=== PATIENT | male | born 1950 | race Caucasian/White ===

== ENCOUNTER → 2021-02-10 09:35 | Outpatient (CLI) | payer MEDICARE, OTHER, SELFPAY ==
[2021-02-10 12:22] LABS: Erythrocyte Sedimentation Rate 23 mm/hr (0-20)
[2021-02-10 12:26] LABS: Absolute Lymphocyte Count 2.46 X10^3/uL (0.83-4.51); Absolute Neutrophil Count 8.8 X10^3/uL (2.0-7.7); Basophil# 0.04 X10^3/uL; Basophil% 0.3 % (0-1); Eosinophil# 0.13 X10^3/uL; Eosinophils% 1.1 % (0-5); Hematocrit 46.8 % (40-54); Hemoglobin 15.6 g/dL (13.0-16.5); Lymphocyte # 2.46 X10^3/ul (0.83-4.51); Lymphocyte % 19.9 % (19-41); Mean Corp Hgb Conc 33.3 g/dL (32-36); Mean Corpuscular Hgb 32.2 pg (27.0-32.0); Mean Corpuscular Volume 96.7 fL (80-94); Mean Platelet Vol. 10.7 fl (6.2-12.0); Monocyte# 0.83 X10^3/uL; Monocyte% 6.7 % (0-10); NRBC Flagged by Analyzer 0 % (0-5); Neutrophil # 8.84 X10^3/uL (2.7-7.7); Neutrophil % 71.6 % (47-70); Platelet Count 234 K/mm3 (150-450); RBC Distribution Width CV 12.8 % (11.6-14.6); RBC Distribution Width SD 45.8 fl (35.1-43.9); Red Blood Count 4.84 M/mm3 (4.6-6.2); White Blood Count 12.4 K/mm3 (4.4-11.0)
[2021-02-10 12:45] LABS: ALB/GLOB Ratio 0.8 RATIO (0.9-2.4); AST(SGOT) 10 U/L (15-37); Alanine Aminotransfer ALT/SGPT 23 U/L (16-61); Albumin, Serum 3.1 g/dL (3.2-5.0); Alkaline Phosphatase 96 U/L (45-117); Anion Gap 5 (5-15); BUN 12 mg/dL (7-18); BUN/Creat Ratio 11.7 RATIO (10-20); Calcium,Total 9.7 mg/dL (8.5-10.1); Chloride 100 mmol/L (98-107); Creatinine, Serum 1.03 mg/dL (0.70-1.30); EST Glomerular Filtration Rate 76 mL/min (>60); Est Glom Filt Rate - Afr Amer 92 mL/min (>60); Globulin 4.1 g/dL (2.2-4.2); Glucose 332 mg/dL (74-106); Potassium 4.3 mmol/L (3.5-5.1); Protein, Total 7.2 g/dL (6.4-8.2); Rheumatoid Factor < 10.0 IU/mL (<15); Sodium Level 134 mmol/L (136-145)
[2021-02-10 13:11] LABS: Hepatitis B Surface Antibody Non-Reactive; Hepatitis B Surface Antigen Non-Reactive (Nonreactive); Hepatitis C Antibody Non-Reactive (Nonreactive)
[2021-02-12 12:42] LABS: CCP IgG Antibodies 5 units (0-19)
== END ==
PROVIDERS: PCP Preventive Medicine Occupational Medicine; Referring Provider Internal Medicine Rheumatology; Visit Provider Internal Medicine Rheumatology
DX: M06.4 Inflammatory polyarthropathy (principal); M47.897 Other spondylosis, lumbosacral region; E11.9 Type 2 diabetes mellitus without complications
CPT/HCPCS: 36415; 80053; 85025; 85652; 86140; 86200; 86431; 86706; 86803; 87340

== ENCOUNTER 2024-07-08 16:49 | Emergency (ER) | payer MEDICARE, OTHER, SELFPAY ==
[2024-07-08 16:50] VITALS: BP 160/81; PULSE 60; RESP 18; TEMP 36.1; O2SAT 93
--- NOTE | 2024-07-08 17:00 | RAD_ITS ---
INDICATION: FALL EXAMINATION/TECHNIQUE: X-RAY - RIGHT XR Knee 2 VIEWS COMPARISON: FINDINGS: SOFT TISSUES: Prepatellar soft tissue injury with swelling. No radiopaque foreign body. Chondrocalcinosis of the menisci. Vascular calcifications. Suprapatellar effusion. BONES/JOINTS: No acute fracture or subluxation.. Degenerative spurring at the femorotibial and patellofemoral tibial compartments. Narrowing of the medial femoral tibial compartment. No sclerotic or destructive changes observed. RAD/Knee 1 or 2 Views IMPRESSION: Degenerative changes and effusion. Chondrocalcinosis of the menisci. Electronically Signed: Dinh Johnson DO at 17:20 EDT Reading Location ID and State: [facility] / [place] Tel [phone], Service support ,
[2024-07-08 20:50] VITALS: BP 133/63; RESP 18; O2SAT 98; BMI 34.9
--- NOTE | 2024-07-08 20:58 | CT_ITS ---
CT RIGHT LOWER EXTREMITY WITH 3-D IMAGING CLINICAL INDICATION: knee pain TECHNIQUE: Axial CT images of the RIGHT lower extremity was performed without IV contrast material. Coronal and sagittal reformats were provided. The protocol utilizes one or more of the following dose reduction techniques: automated exposure control, adjustment of mA and/or kV according to patient size,and/or use of iterative reconstruction technique. RADIATION DOSAGE (If Supplied By Facility): CTDIvol = ( 15.35 ) mGy, DLP = ( 557.16 ) mGycm COMPARISON: FINDINGS: Bones: Osseous structures are normal without evidence of fracture or dislocation. Degenerative spurring at the femoral tibial compartments. No lytic or blastic osseous masses. Soft Tissues: There is prepatellar soft tissue swelling and possible hemarthrosis. Injury to the cruciate ligaments cannot be excluded. Correlation with MRI if internal derangement is suspected. Chondrocalcinosis of the menisci. 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 CT/Extremity Lower without Contra IMPRESSION: Mild degenerative changes. There is prepatellar soft tissue swelling and possible hemarthrosis. Injury to the cruciate ligaments cannot be excluded. Correlation with MRI is recommended if clinically indicated. Chondrocalcinosis of the menisci. 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
[2024-07-08] MEDS: oxyCODONE 5 MG Tablet 10 MG PO (21:11)
--- NOTE | 2024-07-08 21:20 | EDS_ITS ---
HPI History of Present Illness Chief Complaint: Lower Extremity Injury Informant: patient and family Narrative Narrative: 73-year-old male presenting to the emergency room with right knee injury. Patient states that he got off his tractor began to fall forward. He states that his plant was set and he did have some twisting. He notes that there seems hyperextension as he fell. He notes pain in the suprapatellar lateral area of the knee. He notes swelling. He notes he is unable to lift his leg up off the bed. He states while sitting in the chair in triage his leg just dangled down. He denies any other injuries in the fall [facility] Medical History Arthritis Diabetes Factor 5 Leiden mutation, heterozygous High cholesterol HTN (hypertension) DVT (deep venous thrombosis) Home Medications ?Medication ?Instructions ?Recorded ?Last Taken ?Type oxycodone-acetaminophen 5 mg-325 1 tab PO Q6H PRN pain 3 days #12 07/08/24 Unknown Rx mg tablet (Percocet) tabs Allergy/AdvReac Type Severity Reaction Status Date / Time No Known Allergies Allergy Verified 07/08/24 16:52 Social History Smoking Status: Current every day smoker tobacco type: cigarettes ROS ROS ED Constitutional Constitutional ED: Denies chills, fever(s) or weight loss Eyes Eyes: Denies change in vision or diplopia ENT ENT ED: Denies ear pain, rhinorrhea or sore throat Cardiovascular Cardiovascular: Denies chest pain, orthopnea, palpitations or racing heartbeat Respiratory/Chest Respiratory/Chest: Denies cough, dyspnea or orthopnea Gastrointestinal Gastrointestinal: Denies abdominal pain, diarrhea, nausea or vomiting Genitourinary Genitourinary ED: Denies dysuria, hematuria or urinary frequency Musculoskeletal Musculoskeletal: Reports other Details: See history of present illness ; Denies arthralgias or myalgias Integumentary Denies abscess or rash Neurologic Neurologic: Denies headache(s) or weakness Psychiatric Psychiatric: Denies anxiety, depression, suicidal ideation or suicidal thoughts Endocrine Endocrinology: Denies polydipsia, polyphagia or polyuria Allergic/Immunologic Allergic/Immunologic ED: Denies mouth swelling, tongue swelling or urticaria EXAM Physical Exam Const Vital Signs: 07/08/24 16:50 07/08/24 20:50 Temperature 97 F L Temperature Source Temporal Pulse Rate 60 Respiratory Rate 18 18 Blood Pressure 160/81 H 133/63 H Blood Pressure Mean 107 86 Pulse Ox 93 98 Oxygen Delivery Method Room Air Positive well nourished, well developed and obese General Appearance ED: well developed and NAD Nutritional Appearance: obese HEENT Reports normocephalic, head/scalp atraumatic and moist mucous membranes Eyes PERRL and EOMs intact bilaterally Neck no lymphadenopathy, supple and no JVD Resp normal respiratory effort and clear to auscultation bilaterally Cardio regular rate, regular rhythm and no murmurs GI normal to inspection, nondistended, normoactive bowel sounds and non-tender Palpation: soft Back/Spine no CVA tenderness and normal ROM Extremity Extremity Narrative: There is significant swelling in the suprapatellar region of the right knee. The patient is unable to raise his leg up off the bed. He has a difficult time jeremias his quadriceps. There is no posterior tenderness on palpation. No medial or lateral joint line tenderness General Extremety ED: Negative for edema General Extremity: Negative for edema Neuro oriented x3 and CN's II-XII intact bilaterally Sensorium / Orientation: alert Motor Exam: strength 5/5 throughout Psych mental status grossly normal Mood & Affect: Negative for depressed or tearful Skin no rashes or lesions noted and no wounds MDM MDM MDM Narrative Medical decision making narrative: Differential diagnosis includes fracture dislocation ligamentous injury tendon injury neurovascular injury. Patient appears neurovascular intact. He has a significant mount of swelling/effusion. He cannot fully contract his quadriceps. Difficult to say if this is due to pain or actual mobility loss. My independent interpretation of the plain films of the knee is no acute fracture. A CT scan was obtained which demonstrates hemarthrosis aneurysm of the popliteal artery prepatellar soft tissue swelling. Jose C wrap was applied patient was placed in a knee immobilizer and given crutches. Because of his risk factors for DVT we talked specifically about her right in the about this foot and mobility. I will write for pain medication. Advised orthopedic follow-up and they would like to see Dr. Mello for that. History & Record Review Discussion w/independent historian: Patient and Family Radiography Diagnostic Testing: Clinical Impression(s) from Imaging Studies Knee X-Ray 07/08/24 17:00 IMPRESSION: Degenerative changes and effusion. Chondrocalcinosis of the menisci. Electronically Signed: Dinh Johnson DO at 17:20 EDT , Lower Extremity CT 07/08/24 20:58 IMPRESSION: Mild degenerative changes. There is prepatellar soft tissue swelling and possible hemarthrosis. Injury to the cruciate ligaments cannot be excluded. Correlation with MRI is recommended if clinically indicated. Chondrocalcinosis of the menisci. 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 Electronically Signed: Dinh Johnson DO at 21:57 EDT , Discharge Plan Triage Chief Complaint: Lower Extremity Injury ED Provider: Marcus Veloz Dx/Rx/DC Orders Clinical Impression: Fall, Effusion of right knee, Knee sprain Instructions: ED Knee Sprain Ligaments Prescriptions: New oxycodone-acetaminophen [Percocet] 5-325 mg tablet 1 tab PO Q6H PRN (Reason: pain) 3 Days Qty: 12 0RF Primary Care Provider: Baljinder Chester Referrals: Baljinder Chester DO [Primary Care Provider] - Kei Mello MD [Med Staff - Active Staff] - As soon as possible Print Language: Azeri Disposition Disposition: Home, Self Care Discharge Date/Time: 07/08/24 23:25
== END 2024-07-08 23:25 | disposition home or self-care (01) ==
PROVIDERS: Emergency Provider Emergency Medicine; PCP Preventive Medicine Occupational Medicine; Visit Provider Emergency Medicine
DX: S83.91XA Sprain of unspecified site of right knee, initial encounter (principal); E11.9 Type 2 diabetes mellitus without complications; E78.00 Pure hypercholesterolemia, unspecified; M25.461 Effusion, right knee; I10 Essential (primary) hypertension; W17.89XA Other fall from one level to another, initial encounter; F17.210 Nicotine dependence, cigarettes, uncomplicated
CPT/HCPCS: 73560; 73700; 99283

== ENCOUNTER 2024-08-01 15:21 | Observation (INO) | payer MEDICARE, OTHER, SELFPAY ==
--- NOTE | 2024-07-22 06:32 | PCM.HP.BLA ---
History and Physical History and Physical Patient Name: Baljinder Davis : 1950 From:? DELFINO JC PA-C DATE OF PRE-OPERATIVE EXAM: 07/19/2024 DATE OF SURGERY:? 08/01/2024 SCHEDULED PROCEDURE:? Right knee quadriceps tendon repair HISTORY OF PRESENT ILLNESS: This is a 73-year-old male who underwent MRI of the right knee.? His daughter was present at visit.? Injury occurred on July 08, 2024 when patient was hooking up a trailer with he fell injuring his right knee.? Patient had immediate pain.? He was seen in our office after he went to the [facility] emergency room.? He was placed in a knee immobilizer.? Patient today presents without the knee immobilizer in a wheelchair.? He has been using oxycodone and Tylenol for pain control.? Patient ran out of the pain medication.? He also complains of ongoing low back pain.? He is unable to extend his right knee.? Patient has medical history pertinent for type 2 diabetes mellitus, hypertension, history of DVT and pulmonary embolism, sleep apnea, and factor V Leiden.? He is currently on Coumadin.? Patient denies any chest pain, shortness of breath, fevers chills or recent infections.? Patient is unsure of what his last A1c was.? They state he has an appointment next week with his primary care physician Dr. Pedro on July 24, 2024. REVIEW OF SYSTEMS: Review Of Systems: Constitutional: Denies change in appetite, fever and weight change. Cardiovasular: Denies chest pain, heart murmur and irregular heartbeat. Respiratory: Denies cough, pneumonia, shortness of breath, tuberculosis and wheezing. Gastrointestinal: Denies constipation, diarrhea, heartburn, nausea, rectal itching, bloody stools and vomiting. Musculoskeletal: Reports gait disturbance, pain, trouble walking and weakness, but denies leg swelling. Skin: Denies Raynaud's, history of shingles and tattoo. Neurological: Denies ambulatory dysfunction, dizziness, numbness/tingling and tremor. Psychiatric: Denies anxiety, insomnia and stress. Hematologic/Lymphatic: Denies anemia, bleeding/bruising tendency and past transfusion. Reviewed and updated. PAST MEDICAL HISTORY: Advance Care Plan: Other Directive, LIVING WILL Effective Date: 07/10/2024 Other Directive, POA Effective Date: 07/10/2024 Past Medical History: Medical Problems: Arthritis, Diabetes, High Blood Pressure, Hypercholesterolemia, History Of Blood Clots/ DVT, Sleep Apnea, Pulmonary Embolism, Factor V Leiden Accidents: Fall - (07/08/2024) RT KNEE Surgical Hx: Knee Replacement Lt - (2004) DR. HUMPHREYS Anesthesia Complications: None Assistive Devices: Cpap Reviewed, no changes. SOCIAL HISTORY: Social History: Marital: Single.Occupation: [employer].Work Status: Currently Working.Hand Dominance: Right-handed. Personal Habits:? Cigarette Use: Light tobacco smoker (10 or fewer cigarettes/day).Smokeless Tobacco: Never Used Smokeless Tobacco.E-Cigarette Use: Never used.Alcohol: Occasionally.Drug Use: Denies Use.Enjoy Exercising: Never Exercises. Reviewed, no changes. VITALS: BP: 144/80 T: 97.0 T: 36.1C Pain Level: 5 ALLERGIES: No Known Drug Allergy No Known Substance Allergies MEDICATIONS: Oxycodone HCL 5 mg 1-2 tablets by mouth every 6 hours as needed, Oxycodone HCL 5 mg 1-2 tab by mouth every 6 hours, Fluticasone Propionate 50 mcg/Act, Glipizide 5 mg, Metoprolol Tartrate 25 mg, Aspir-Low 81 mg 1 by mouth twice a day, Warfarin Sodium 5 mg 1 by mouth every day, Tamsulosin HCL 0.4 mg 1 by mouth every day, Metformin HCL 500 mg 1po qday, Pravastatin Sodium 40 mg 1 by mouth every day, Prednisone 5 mg daily, Hydroxychloroquine Sulfate 200 mg 1 by mouth twice a day, Tramadol HCL 50 mg 1-2 by mouth every 6 hours as needed pain, Baclofen 10 mg three times a day as needed for muscle spasm PRE-OP EXAM: General appearance:NORMAL? Other: Eyes: Conjunctivae and lids: NORMAL? Pupils: ERR Ears, Nose, Mouth, and Throat: NORMAL? Other: Inspection of lips, teeth and gums: NORMAL?? Other: Neck: Examination of neck: no masses noted. Respiratory: Assessment of respiratory effort: NORMAL?? Other: ? Auscultation of lungs: clear to auscultation no wheezes, rhonchi or rales. Cardiovascular:? Auscultation of heart: regular rate and rhythm, no murmurs, gallops or rubs. PHYSICAL EXAMINATION: On exam this is a 73-year-old male who comes in today in a wheelchair.? He is without his knee immobilizer.? Patient has swelling to the right knee.? There are no wounds or abrasions.? Patient does have large effusion.? He has tenderness to palpation over the quadriceps tendon near its insertion.? Difficulty determining if there is a palpable defect but he has significant pain over this area.? Patient was unable to actively perform knee extension. ROM: Patient was unable to actively perform terminal knee extension.? Passively I was able to get him to 0 extension however he was unable to hold this in position.? He had flexion of 100 with increased pain. Special tests: Stable to anterior/posterior drawer exam.? Stable to varus/valgus stress test. Sensation intact to light touch to bilateral lower extremities.? Negative Homans exam bilaterally. IMAGING STUDIES: Previous x-rays from [facility] were reviewed from July 08, 2024.? These were nonweightbearing x-rays which did reveal reveal joint space narrowing with subchondral sclerosis, osteophyte formation consistent with moderate stage III medial compartment osteoarthritis.? There is chondrocalcinosis appreciated in both the medial and lateral compartment.? Patient has joint effusion. 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 There is chondrocalcinosis of the menisci. MRI of the right knee was obtained at [facility] on July 16, 2024 did reveal a full-thickness quadriceps tendon tear at the patella insertion.? There is large amount of swelling and hematoma.? There is complex medial meniscus tear with intermediate chondromalacia in the medial compartment.? There is also popliteal artery aneurysm measuring approximate 4.7 cm in length and 1.9 cm in diameter.? Complex Gallo cyst.? For complete details the MRI results.? I did discuss to review MRI with Dr. Blake Cooper. IMPRESSION: 1.? Right knee quadriceps tendon tear 2.? Right knee large effusion 3.? 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 Right knee degenerative complex medial meniscus tear 5.? Right knee popliteal artery aneurysm 6.? Hypertension 7.? Type 2 diabetes mellitus 8.? History of DVT and pulmonary embolism: Currently on Coumadin 9.? Hypercholesterolemia 10.? Sleep apnea PLAN: Dr. Blake Cooper did discuss and review with the patient all treatment options including surgical versus nonsurgical options.? Patient does wish to proceed with the above-stated procedure.? Potential risks, benefits, and complications of the procedure were discussed in detail including but not limited to , infection, nerve and blood vessel damage, persistent pain, numbness, tingling, paresthesias, blood clot, pulmonary embolism, and requirement for possible further surgery.? The patient expressed full understanding and has no further questions for the doctor.? Patient does agree to proceed with the above-stated procedure and has signed the surgery consent form. POST-OP MEDICATION PLAN: Pain Medications: Patient was given prescription for oxycodone.? He was advised to use extra strength Tylenol 500 mg 2 tablets 3 times daily.? He is unable to use nonsteroidal anti-inflammatories due to Coumadin treatment. DVT Prophylaxis: Patient will resume his Coumadin postoperatively as prescribed.? Appreciate recommendations from primary care provider Dr. Pedro for perioperative management of the Coumadin.? I did advise the patient he will most likely have to stop the Coumadin one week prior to the procedure. This dictation was created using voice recognition software. Phonetic and/or grammatical errors may exist. ___? I have re-examined the patient.? There are no clinical changes since date of exam. ___? See progress notes for changes. ___? Dictated on admission Date: ? Time: Signature:
[2024-08-01] VITALS (14 sets, daily range): BP systolic 110–148; BP diastolic 66–92; PULSE 61–85; RESP 16–18; TEMP 36.3–37.1; O2SAT 93–98; BMI 33.7
[2024-08-01] MEDS: Cefazolin 2 GM in Syringe IV (11:50)
[2024-08-01 12:12] LABS: INR Fingerstick 1.1
--- NOTE | 2024-08-01 12:32 | PCM.PRE.AN2 ---
ASA Classification* ASA Classification ASA Classification: 2 (SEE WRITTEN PRE ANESTHESIA RECORD FOR FULL ASSESSMENT) Assessment & Plan Anesthesia* Anesthesia Assessment Anesthesia Assessment: Discussed sedation and/or anesthesia options, risks, benefits, and alternatives with patient/parents/legal guardian/POA. Questions invited. The patient/parents/legal guardian/POA seems to understand and agrees to proceed with anesthesia plan. Reviewed the physical assessment, medical history, allergy history and patient home medications list prior to surgery/procedure/anesthetic and documented any changes. Performed airway and anesthesia risk assessments. Anesthesia Type Anesthesia Type: General (SEE WRITTEN PRE ANESTHESIA RECORD FOR FULL ASSESSMENT) Anesthesia Focused Assessment* Airway Assessment Mouth opens: >3 cm Mallampati Score: II Focused Labs Anesthesia Preop lab: CBC WBC 12.4 K/mm3 (4.4-11.0) H 02/10/21 09:44 RBC 4.84 M/mm3 (4.6-6.2) 02/10/21 09:44 Hgb 15.6 g/dL (13.0-16.5) 02/10/21 09:44 Hct 46.8 % (40-54) 02/10/21 09:44 Plt Count 234 K/mm3 (150-450) 02/10/21 09:44 CHEMISTRY Potassium 4.3 mmol/L (3.5-5.1) 02/10/21 09:44 Sodium 134 mmol/L (136-145) L 02/10/21 09:44 BUN 12 mg/dL (7-18) 02/10/21 09:44 Creatinine 1.03 mg/dL (0.70-1.30) 02/10/21 09:44 Glucose 332 mg/dL (74-106) H 02/10/21 09:44 COAG Pre-Assessment Diagnosis/Proposed Procedure Planned Operative Procedure(s): RIGHT KNEE QUADRICEPS TENDON REPAIR Anesthesia History Anesthesia History - personal support worker: Anesthesia History - personal support worker Hx Hospitalization No 07/24/24 08:10 Any Problems With Anesthesia No 07/24/24 08:10 Cholinesterase deficiency No 07/24/24 08:10 You/Your Family Experience No 07/24/24 08:10 fever (hyperthermia) with Relationship Recent Exposure to Contagious Disease Does patient have nerve No 07/24/24 08:10 stimulator Patient instructed to have device shut off --Does patient have Pacemaker or ICD? When Was Last Pacemaker Check QUESTION #4 FULL TEXT: You/Your Family Experience fever (hyperthermia) with Anesthesia Last Oral Intake Last Oral intake: Last Oral Intake NPO since Meds taken in AM with sips of water? Meds patient instructed to take am of surgery PONV PONV - personal support worker: PONV - personal support worker Female No 07/24/24 08:10 HX of Motion Sickness No 07/24/24 08:10 HX of N/V After Surgery No 07/24/24 08:10 Non-Smoker No 07/24/24 08:10 Duration of Surgery greater Yes 07/24/24 08:10 than 60 minutes Number of Risk Factors 1 07/24/24 08:10 PONV Score Low Risk 07/24/24 08:10 Height & Weight Height & Weight: Anesthesia: Height & Weight Height 6 ft 2 in 07/08/24 16:50 Respiratory Assessment Respiratory Assessment - personal support worker: Respiratory Tract Infection Hx - personal support worker Hx Respiratory Tract Infection No 07/24/24 08:10 STOP Sleep Apnea STOP Sleep Apnea - personal support worker: STOP Sleep Apnea - personal support worker Hx Hypertension Yes: CONTROLLED WITH MED 07/24/24 08:10 Hx Sleep Apnea Yes 07/24/24 08:10 CPAP Yes 07/24/24 08:10 BIPAP No 07/24/24 08:10 Do you snore loudly (louder than talking or can be heard Do you often feel tired/ fatigued/ sleepy during daytime? Has anyone observed you stop breathing during sleep? STOP Results Positive 07/24/24 08:10 QUESTION #5 FULL TEXT : Do you snore loudly (louder than talking or can be heard through closed doors)? Tobacco Use History Tobacco Use History - personal support worker: Tobacco Use History - personal support worker Tobacco Use Smoking Status Current every day smoker 07/24/24 08:10 Hx Tobacco Use Yes 07/24/24 08:10 Years Smoking Packs Smoked per Day Smoking Cessation Date was within the last 15 years Hx Smoking Cessation Date Hx Smoking Cessation Counseling Hematologic Medial History Hematologic Hx - personal support worker: Hematologic Medical Hx - anchorer Hx of Blood Transfusion No 07/24/24 08:10 Hx of Transfusion in last 3 No 07/24/24 08:10 Months Date of Last Transfusion (if within last 3 months) Ever experience any problems No 07/24/24 08:10 with transfusion(s)? Specify any problems Hx of Preganancy in last 3 N/A 07/24/24 08:10 Months Nurse Filling Out Transfusion DSCHRIBER 07/24/24 08:10 & Questions: Date: 07/24/24 07/24/24 08:10 Time: 08:12 07/24/24 08:10 Patient unable to answer at this time (ie. confused, unrespo /Reproduction History /Reproductive History - personal support worker: /Reproductive Hx- personal support worker Hx Now No 07/24/24 08:10 Gestational Age (in weeks): EDC: Hx Hx Para Hx Section SAB No 07/24/24 08:10 Active Medications Active Medications: Current Medications Generic Name Dose Route Start Last Admin Trade Name Freq PRN Reason Stop Dose Admin Cefazolin Sodium 2 gm/ N/A 20 mls @ 400 mls/hr 08/01/24 15:30 IV 08/01/24 15:32 PREOP ONE PFSH Medical History Alcohol use History of steroid therapy Walker as ambulation aid Back pain Syncope Dietary restriction CPAP (continuous positive airway pressure) dependence Smoker Leg cramps Arthritis Diabetes Factor 5 Leiden mutation, heterozygous High cholesterol HTN (hypertension) DVT (deep venous thrombosis) Home Medications ?Medication ?Instructions ?Recorded ?Last Taken ?Type oxycodone-acetaminophen 5 mg-325 1 tab PO Q6H PRN pain 3 days #12 07/08/24 Unknown Rx mg tablet (Percocet) tabs fluticasone propionate 50 2 spray intranasal DAILY 07/24/24 Unknown History mcg/actuation nasal spray,suspension glipizide 5 mg tablet 5 mg PO BID 07/24/24 Unknown History hydroxychloroquine 200 mg tablet 200 mg PO BID 07/24/24 Unknown History metformin 500 mg tablet,extended 2,000 mg PO QHS 07/24/24 Unknown History release 24 hr metoprolol tartrate 25 mg tablet 25 mg PO BID 07/24/24 Unknown History pravastatin 40 mg tablet 40 mg PO QHS 07/24/24 Unknown History prednisone 5 mg tablet 5 mg PO DAILY 07/24/24 Unknown History tamsulosin 0.4 mg capsule 0.4 mg PO QHS 07/24/24 Unknown History tramadol 50 mg tablet 50 - 100 mg PO Q6H PRN PRN pain 07/24/24 Unknown History warfarin 5 mg tablet 5 mg PO DAILY 07/24/24 Unknown History Allergy/AdvReac Type Severity Reaction Status Date / Time No Known Allergies Allergy Verified 07/24/24 08:05 Surgical History Hx of colonoscopy Hx of appendectomy Hx of total knee arthroplasty Social History Smoking Status: Current every day smoker tobacco type: cigars Review of Systems (Anesthesia) ROS Narrative System reviewed and no additional complaints, except as documented.
[2024-08-01 13:20] LABS: Bedside Glucose 109 mg/dL (74-106)
[2024-08-01] MEDS: Bupivacaine Mpf 0.5% 30 ML VIAL (14:20)
[2024-08-01 15:09] LABS: AUTO B FLUID DILUENT BKGD CT WBC <0.1 RBC <0.01 (W<.1,R<.01); Appearance /Synovial Fluid Sl Cl (CLEAR); Color / Synovial Fluid Red (Pale Yellow); Source / Synovial Fluid RIGHT KNEE; Viscosity / Synovial Fluid Sl. Viscous (HIGH)
[2024-08-01 15:10] LABS: RBC /Synovial Fluid 0.037 10^6/uL (0); Synovial Fld Mononuclear WBC # 2.007 10^3/ul; Synovial Fld Mononuclear WBC % 3.1 %; Synovial Fld Polynuclear WBC # 62.649 10^3/uL; Synovial Fld Polynuclear WBC % 96.9 %
--- NOTE | 2024-08-01 15:37 | PCM.POST.ANE ---
Anesthesia: Postop Eval I Current Vital Signs Temperature: 98 F Pulse Rate: 69 Blood Pressure: 136/81 Respiratory Rate: 16 Pulse Ox: 94 Oxygen Delivery Method: Room Air Assessment Airway patent: Yes Spontaneous unlabored respirations: Yes Mental status: Awake and Calm nausea: No Vomiting: No Anesthesia Complication: No Fluid Hydration Crystalloid volume administer (ml): 1,000 Total IV fluid infused: 1,000 Progress Note Anesthesia document: Postop Eval 1 completed: Yes
--- NOTE | 2024-08-01 16:18 | PCM.OPRPT ---
Operative Report (Standard) Operative Information Surgery/Procedure Performed: 1. Right knee quadriceps tendon repair 2. Right knee irrigation and debridement Surgeon: Blake Cooper Date of Procedure: 08/01/24 Procedure Start Time: 14:16 Procedure Stop Time: 15:04 Pre-Operative Diagnosis: 1. Right knee quadriceps tendon rupture Post-Operative Diagnosis: 1. Right knee quadriceps tendon rupture 2. Right knee effusion with synovitis, concern for septic arthritis Select all DRAINS/GRAFTS/IMPLANTS that apply: None Type of Anesthesia: General Estimated Blood Loss: 50 cc Specimen collected: Yes Description of specimen(s) removed: Right knee fluid cultures and cell count Description of surgery: Preoperative diagnosis: Right knee quadriceps tendon rupture Postoperative diagnosis: 1. Right knee quadriceps tendon rupture 2. Right knee effusion with synovitis, concern for septic arthritis Procedure: 1. Right knee quadriceps tendon repair 2. 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 He sustained a right knee injury and felt a pop. X-rays were relatively unremarkable. Patient was able to perform a straight leg raise initially an MRI was obtained. MRI demonstrated a full-thickness retracted tear of the quadriceps tendon. Patient was on Coumadin and will obtain medical clearance prior to surgery. Coumadin was held. He has a history of factor V Leiden. I recommended open repair of the l right eft quadriceps tendon rupture after seeing the patient in consultation. The risks, benefits, alternatives to procedure were reviewed with the patient at length. He agreed to proceed with surgery. Risks included but were not limited to bleeding, infection, loss of life or limb, risk of anesthesia, need for additional surgery, persistent pain, nonhealing tendon, arthrofibrosis, extensor lag, neurovascular injury, DVT or PE. Informed sent was obtained prior to procedure. Description of procedure: Patient was identified in the preoperative holding area by name, medical record number, and date of . The operative extremity was marked. Informed consent was confirmed with the patient. All questions were answered to his satisfaction. At time of his procedure, patient was brought to the operative suite and positioned supine a standard operating table. All bony prominences were well-padded. General anesthesia was induced with a laryngeal mask airway placed. After adequate anesthesia and securing the tube, a well-padded pneumatic tourniquet was applied to left upper thigh. We then prepped and draped the right lower extremity in a normal, sterile orthopedic fashion after placing a bump under the patient's left hip and elevating the left lower extremity slightly on bath blankets. 3 g Ancef was administered prior to the incision by anesthesia staff. We then performed a timeout with all parties in attendance in agreement with the side, site, and operation be performed. No concerns were voiced and we elected to proceed. I first exsanguinated the left lower extremity and Esmarch bandage. Tourniquet was inflated 250 mmHg remained up for approximately 30 minutes. Esmarch was removed. I was able to palpate a defect in the quadriceps tendon. Incision was carried sharply through skin and subcutaneous tissue approximately 10 cm in length overlying the superior third of the patella and the quadriceps tendon. Bursa and fascia was split in line with the incision. Fluid was encountered. Fluid was Allowed a without obvious purulence. Synovitis was noted which did not appear to be to the degree I would expect for a septic arthritic knee. Chondral surfaces appeared pristine. At this time, I obtained fluid cultures and sent fluid for analysis. I thoroughly irrigated the knee and performed a limited synovectomy about the patellofemoral joint. I made the decision to proceed with the quadriceps tendon repair after irrigation. I then encountered the retinacular and quadriceps tendon injury. There is significant mop ends of the quadriceps tendon remaining both on the patella as well as the end of the remaining quadriceps tendon. These were debrided sharply. I then thoroughly irrigated the knee with normal saline solution. There was significant hematoma along the distal quadriceps musculature. This was also debrided. I then exposed the superior pole the patella. I freshened the bony surface with a rasp. Two #5 FiberWire's were placed in running, locking Krak?w fashion through the medial lateral margins of the quadriceps tendon. The 3.5 mm drill holes were placed parallel sequentially through the patella for transosseous repair. Sutures were shuttled with a suture passer. Sutures were then tied in approximately 30 degrees of flexion with excellent reapproximation of the quadriceps tendon to the superior pole. I was able to flex the knee to 30 degrees without undue tension or gap formation. I then noted 2 separate transverse retinacular injuries both medial and lateral to the quadriceps tendon. These were reapproximated with [id number] #1 PDS suture. I brought the knee into approximately 30 degrees of flexion and significant tension was noted on the repair. I then brought the knee back into full extension. Tourniquet was deflated. Hemostasis was excellent. I thoroughly irrigated the wound with normal saline solution. Dermis and subcutaneous tissue was reapproximated 2-0 Vicryl buried suture. Skin was finally reapproximated with ld. A silver dressing was applied. A bulky modified Dennis dressing was then also applied. Patient was then reversed from anesthesia and safely extubated in the operative suite. He was transferred to his hospital bed and subsequently to PACU in stable condition. Need for skilled insurance administrative assistant: Rupali Beasley PA-C was critical to the outcome of the case. During the course of the procedure the physician insurance administrative assistant played a vital role. Her intimate knowledge of my steps in the procedure aided in safe and expedient completion of the procedure. The PA played a vital role in positioning particularly in obtaining the appropriate positioning. The PA was also vital in the retraction of soft tissues during the exposure and protecting vital structures. The PA was also vital and obtaining tendon reduction and assisting with procedure placement. She also played a vital role in closure and brace application with my direct supervision. Post Operative Plan: Patient will be placed in observation for early convalescence and medical monitoring. We will follow cultures. Mobilize with physical and Occupational Therapy. Suspect patient would benefit from home therapy. Case management consulted. Weightbearing: Weightbearing as tolerated right lower extremity -hinged knee brace locked in extension at all times. To be removed only for hygiene purposes, at which time the knee should not be flexed. Antibiotics: Ancef 1 g x 3 doses postoperatively, 1 dose given preoperatively. Plan to follow cultures to determine possible treatment of septic arthritis. DVT Prophylaxis: SCDs, SELENA hose, early mobilization. Coumadin restarted on postoperative day #1. Hospitalist consulted for recommendations regarding factor V Leiden and need for bridge therapy. Serna: None Dressing: Maintain surgical silver dressing x7 days, then okay to remove X-Rays: None Follow-up: 3 weeks in my office Surgical Findings: See operative note details Architectural Modeler filler blender: Yes Assistant Front Office Manager: Rupali Beasley Tasks completed by nurse assistant: Opening & closing, Dissecting tissue, Removing tissue, Hemostasis: Electrocautery and Retracting Additional insurance administrative assistant?: No Complications Complications: No Admit VTE Documentation VTE Present on Admission: No VTE Mechan Device Prophylaxis: SCD's and Thigh High SELENA Hose VTE Pharm Prophylaxis ordered?: Yes
--- OUTSIDE RECORDS SUMMARY | 2024-08-01 16:19 | XMS RPT_ITS | CCD ---
Author Organization [facility] Care Team Providers Care Warper Fixer Name Role Phone HEAVENLY CHESTER DO Primary Care Physician HONORIO WILLIAM, DR HANDLEY Attending HEAVENLY Amato DO Primary Care Unavailable HONORIO WILLIAM, DR HANDLEY Attending HEAVENLY Amato DO Primary Care Unavailable HONORIO WILLIAM, DR HANDLEY Attending HEAVENLY Amato DO Primary Care Unavailable HEAVENLY CHESTER DO Primary Care Unavailable HEAVENLY CHESTER DO Attending Unavailable DELFINO JC PA-C Attending Unavailable HEAVENLY CHESTER DO Primary Care Unavailable Allergies Allergy Classification Reported Allergen(s) Allergy Type Date of Onset Reaction(s) Facility (19 sources) Contrast media; Translations: [iodinated radiocontrast agents] Drug allergy Vomiting (disorder) [facility] Work Phone: (19 sources) Fluorouracil; Translations: [fluorouracil] Drug Allergy [facility] Work Phone: Comment on above: 5-FLUOROURACIL--CHEM ICAL-RASH Medications Current Medications Medication Drug Class(es) Dates Sig (Normalized) Sig (Original) aspirin 325 mg oral tablet (19 sources) Platelet Aggregation Inhibitor, Nonsteroidal Anti-inflammatory Drug Start: 04-20-2020 aspirin 325 mg oral tablet Dose : 325 mg = 1 tab(s), Oral, Daily, 0 Refill(s) Start Date: 04/20/20 Status: Ordered baclofen 10 mg oral tablet (10 sources) gamma-Aminobutyric Acid-ergic Agonist Start: 04-03-2023 baclofen 10 mg oral tablet Dose : 10 mg = 1 tab(s), Oral, TID, # 90 tab(s), 1 Refill(s), Pharmacy: [facility]/pharmacy #[id number], Back spasm, 186.4, cm, 04/03/23 14:33:00 EDT, Height, kg, 04/03/23 14:33:00 EDT, Dosing Weight Start Date: 04/03/23 Status: Ordered Start: 04-23-2022 baclofen 10 mg oral tablet Dose : 10 mg = 1 tab(s), Oral, TID, # 90 tab(s), 1 Refill(s), [id number], Back spasm, 185.4, cm, 04/23/22 8:05:00 EDT, Height Start Date: 04/23/22 Status: Ordered Blood Glucose Test Machine (19 sources) Start: 03-30-2021 Blood Glucose Test Machine See Instructions, disp. 1 glucometer, UAD dialy to check blood sugar, # 1 EA, 0 Refill(s), Pharmacy: [facility]/pharmacy #[id number], Diabetes, 186, cm, 03/30/21 15:01:00 EDT, Height, 120.5, kg, 03/30/21 15:01:00 EDT, Dosing Weight Start Date: 03/30/21 Status: Ordered fluticasone propionate 0.05 mg/actuat metered dose nasal spray (14 sources) Corticosteroid Start: 04-10-2024 take 2 spray(s) nasal route once daily fluticasone 50 mcg/inh NASAL spray See Instructions, INSTILL 2 SPRAYS INTO NOSTRIL(S) DAILY, # 48 mL, 3 Refill(s), Pharmacy: [facility]/pharmacy #[id number], 185, cm, 04/10/24 16:03:00 EDT, Height, kg, 04/10/24 16:03:00 EDT, Dosing Weight Start Date: 04/10/24 Status: Ordered Start: 02-07-2023 take 2 spray(s) nasa l route once daily fluticasone 50 mcg/inh NASAL spray See Instructions, INSTILL 2 SPRAYS INTO NOSTRIL(S) DAILY, # 48 mL, 3 Refill(s), Pharmacy: [facility]/pharmacy #[id number], 185.5, cm, 12/22/22 14:31:00 EDT, Height, kg, 12/22/22 14:31:00 EDT, Dosing Weight Start Date: 02/07/23 Status: Ordered Start: 08-03-2020 take 2 spray(s) nasa l route once daily fluticasone 50 mcg/inh NASAL spray See Instructions, INSTILL 2 SPRAYS INTO NOSTRIL(S) DAILY, # 48 mL, 3 Refill(s), Pharmacy: [facility]/pharmacy #[id number], 186.5, cm, 08/03/20 14:37:00 EST, Height, kg, 08/03/20 14:37:00 EST, Dosing Weight Start Date: 08/03/20 Status: Ordered fluticasone 50 mcg/inh NASAL spray (5 sources) Start: 08-03-2020 take 2 spray(s) nasal route once daily fluticasone 50 mcg/inh NASAL spray See Instructions, INSTILL 2 SPRAYS INTO NOSTRIL(S) DAILY, # 48 mL, 3 Refill(s), Pharmacy: [facility]/pharmacy #[id number], 186.5, cm, 08/03/20 14:37:00 EST, Height, kg, 08/03/20 14:37:00 EST, Dosing Weight Start Date: 08/03/20 Status: Ordered glipiZIDE 5 mg oral tablet (14 sources) Sulfonylurea Start: 01-09-2024 End: 02-12-2025 glipiZIDE 5 mg oral tablet Dose : 5 mg = 1 tab(s), Oral, BID, # 200 tab(s), 3 Refill(s), Pharmacy: [facility]/pharmacy #[id number], Diabetes, 185.5, cm, 01/09/24 16:00:00 EDT, Height, kg, 01/09/24 16:00:00 EDT, Dosing Weight Start Date: 01/09/24 Stop Date: 02/12/25 Status: Ordered Start: 12-15-2022 glipiZIDE 5 mg oral tablet Dose : 5 mg = 1 tab(s), Oral, BID, # 180 tab(s), 3 Refill(s), Pharmacy: [facility]/pharmacy #[id number], Diabetes, 187, cm, 07/07/22 15:27:00 EDT, Height Start Date: 12/15/22 Status: Ordered Start: 07-07-2022 GlipiZIDE XL 1 0 mg oral tablet, extended release Dose : 10 mg = 1 tab(s), Oral, qDay, # 90 tab(s), 0 Refill(s), [id number], 187, cm, 07/07/22 15:27:00 EDT, Height, kg, 07/07/22 15:27:00 EDT, Dosing Weight Start Date: 07/07/22 Status: Ordered Start: 02-08-2022 GlipiZIDE XL 1 0 mg oral tablet, extended release Dose : 10 mg = 1 tab(s), Oral, qDay, # 90 tab(s), 0 Refill(s), [id number], 186.5, cm, 02/08/22 9:19:00 EDT, Height Start Date: 02/08/22 Status: Ordered Start: 12-28-2021 take 1-2 tablets by mouth once daily GlipiZIDE XL 5 mg oral tablet, extended release 1 to 2 tabs, Oral, qDay, # 60 tab(s), 1 Refill(s), [id number], Diabetes, 186, cm, 12/28/21 10:29:00 EDT, Height, kg, 12/28/21 10:29:00 EDT, Dosing Weight Start Date: 12/28/21 Status: Ordered hydroxychloroquine sulfate 200 mg oral tablet (2 sources) Antimalarial, Antirheumatic Agent Start: 01-09-2024 hydroxychloroquine 200 mg oral tablet Dose : 400 mg = 2 tab(s), Oral, qDay, # 180 tab(s), 0 Refill(s) Start Date: 01/09/24 Status: Ordered leflunomide 10 mg oral tablet (9 sources) Antirheumatic Agent Start: 09-28-2021 leflunomide 10 mg oral tablet Dose : 10 mg = 1 tab(s), Oral, qDay, # 30 tab(s), 0 Refill(s) Start Date: 09/28/21 Status: Ordered lisinopril 2.5 mg oral tablet (6 sources) Angiotensin Converting Enzyme Inhibitor Start: 02-08-2022 lisinopril 2.5 mg oral tablet Dose : 2.5 mg = 1 tab(s), Oral, qDay, # 90 tab(s), 3 Refill(s), [id number], Diabetes, 186.5, cm, 02/08/22 9:19:00 EDT, Height, kg, 02/08/22 9:19:00 EDT, Dosing Weight Start Date: 02/08/22 Status: Ordered Lopressor 25mg--USE metoprolol tartrate 25 mg oral tablet (14 sources) Start: 04-10-2024 End: 05-15-2025 Lopressor 25mg--USE metoprolol tartrate 25 mg oral tablet Dose : 25 mg = 1 tab(s), Oral, BID, # 200 tab(s), 3 Refill(s), Pharmacy: [facility]/pharmacy #[id number], 185, cm, 04/10/24 16:03:00 EDT, Height, kg, 04/10/24 16:03:00 EDT, Dosing Weight Start Date: 04/10/24 Stop Date: 05/15/25 Status: Ordered Start: 04-03-2023 take 1 tablet by megan th twice daily Lopressor 25mg--USE metoprolol tartrate 25 mg oral tablet See Instructions, TAKE 1 TABLET TWO TIMES DAILY, # 180 tab(s), 3 Refill(s), Pharmacy: [facility]/pharmacy #[id number], 186.4, cm, 04/03/23 14:33:00 EDT, Height, kg, 04/03/23 14:33:00 EDT, Dosing Weight Start Date: 04/03/23 Status: Ordered Start: 05-19-2022 take 1 tablet by megan th twice daily Lopressor 25mg--USE metoprolol tartrate 25 mg oral tablet See Instructions, TAKE 1 TABLET TWO TIMES DAILY, # 180 tab(s), 3 Refill(s), Pharmacy: [facility]/pharmacy #[id number], 185.4, cm, 04/23/22 8:05:00 EDT, Height, kg, 04/23/22 8:05:00 EDT, Dosing Weight Start Date: 05/19/22 Status: Ordered Start: 08-03-2020 take 1 tablet by megan th twice daily Lopressor 25mg--USE metoprolol tartrate 25 mg oral tablet See Instructions, TAKE 1 TABLET TWO TIMES DAILY, # 180 tab(s), 3 Refill(s), Pharmacy: [facility]/pharmacy #[id number], 186.5, cm, 08/03/20 14:37:00 EST, Height, kg, 08/03/20 14:37:00 EST, Dosing Weight Start Date: 08/03/20 Status: Ordered metFORMIN hydrochloride 500 mg oral tablet (19 sources) Biguanide Start: 07-15-2024 MetFORMIN (Eqv -Glucophage XR) 500 mg oral tablet, EXTENDED RELEASE Dose : 2,000 mg = 4 tab(s), Oral, qDay, # 360 tab(s), 3 Refill(s), [id number], Diabetes, 185, cm, 04/10/24 16:03:00 EDT, Height, kg, 04/10/24 16:03:00 EDT, Dosing Weight Start Date: 07/15/24 Status: Ordered Start: 08-02-2023 MetFORMIN (Eqv -Glucophage XR) 500 mg oral tablet, EXTENDED RELEASE Dose : 2,000 mg = 4 tab(s), Oral, qDay, # 360 tab(s), 3 Refill(s), Pharmacy: [facility]/pharmacy #[id number], Diabetes, 186, cm, 08/01/23 8:13:00 EDT, Height, kg, 08/01/23 8:13:00 EDT, Dosing Weight Start Date: 08/02/23 Status: Ordered Start: 07-07-2022 metFORMIN 500 mg oral tablet EXTENDED RELEASE Dose : 2,000 mg = 4 tab(s), Oral, qDay, # 360 tab(s), 3 Refill(s), Pharmacy: [facility]/pharmacy #[id number], Diabetes, 187, cm, 07/07/22 15:27:00 EDT, Height, kg, 07/07/22 15:27:00 EDT, Dosing Weight Start Date: 07/07/22 Status: Ordered Start: 06-29-2021 metFORMIN 500 mg oral tablet EXTENDED RELEASE Dose : 2,000 mg = 4 tab(s), Oral, qDay, # 360 tab(s), 3 Refill(s), Pharmacy: [facility]/pharmacy #[id number], Diabetes, 186, cm, 06/29/21 14:59:00 EDT, Height, kg, 06/29/21 14:59:00 EDT, Dosing Weight Start Date: 06/29/21 Status: Ordered metoprolol tartrate 25 mg oral tablet (5 sources) beta-Adrenergic Fani Start: 08-03-2020 take 1 tablet by mouth twice daily Lopressor 25mg--USE metoprolol tartrate 25 mg oral tablet See Instructions, TAKE 1 TABLET TWO TIMES DAILY, # 180 tab(s), 3 Refill(s), Pharmacy: [facility]/pharmacy #[id number], 186.5, cm, 08/03/20 14:37:00 EST, Height, kg, 08/03/20 14:37:00 EST, Dosing Weight Start Date: 08/03/20 Status: Ordered pravastatin sodium 40 mg oral tablet (19 sources) HMG-CoA Reductase Inhibitor Start: 07-15-2024 End: 07-10-2025 pravastatin 40 mg oral tablet Dose : 40 mg = 1 tab(s), Oral, qHS, # 90 tab(s), 3 Refill(s), Pharmacy: [facility]/pharmacy #[id number], 185, cm, 04/10/24 16:03:00 EDT, Height, kg, 04/10/24 16:03:00 EDT, Dosing Weight Start Date: 07/15/24 Stop Date: 07/10/25 Status: Ordered Start: 07-07-2022 take 1 tablet by megan th once daily at bedtime pravastatin 40 mg oral tablet See Instructions, TAKE 1 TABLET BY MOUTH EVERYDAY AT BEDTIME, # 90 tab(s), 3 Refill(s), Pharmacy: [facility]/pharmacy #[id number], 186, cm, 08/01/23 8:13:00 EDT, Height, kg, 08/01/23 8:13:00 EDT, Dosing Weight Start Date: 08/01/23 Status: Ordered Start: 06-29-2021 take 1 tablet by megan th once daily at bedtime pravastatin 40 mg oral tablet See Instructions, TAKE 1 TABLET BY MOUTH EVERYDAY AT BEDTIME, # 90 tab(s), 3 Refill(s), Pharmacy: [facility]/pharmacy #[id number], 186, cm, 06/29/21 14:59:00 EDT, Height, kg, 06/29/21 14:59:00 EDT, Dosing Weight Start Date: 06/29/21 Status: Ordered predniSONE 5 mg oral tablet (10 sources) Start: 12-22-2022 Deltasone 5 mg tab (TAPER) Dose : 5 mg = 1 tab(s), Oral, qDay, # 30 tab(s), 0 Refill(s) Start Date: 12/22/22 Status: Ordered Start: 09-07-2021 predniSONE 10 mg oral tablet Dose : 10 mg = 1 tab(s), Oral, Once Start Date: 09/07/21 Status: Ordered tamsulosin hydrochloride 0.4 mg oral capsule (19 sources) alpha-Adrenergic Fani Start: 10-10-2023 End: 11-13-2024 tamsulosin 0.4 mg oral capsule Dose : 0.4 mg = 1 cap(s), Oral, qDay, 30 minutes after the same meal, # 100 cap(s), 3 Refill(s), Pharmacy: [facility]/pharmacy #[id number], 185.5, cm, 10/10/23 15:02:00 EST, Height, kg, 10/10/23 15:02:00 EST, Dosing Weight Start Date: 10/10/23 Stop Date: 11/13/24 Status: Ordered Start: 12-22-2022 take 1 capsule by [facility] once daily at mealtime tamsulosin 0.4 mg oral capsule See Instructions, TAKE ONE CAPSULE EVERY DAY WITH A MEAL, # 90 cap(s), 3 Refill(s), Pharmacy: [facility]/pharmacy #[id number], 185.5, cm, 12/22/22 14:31:00 EDT, Height, kg, 12/22/22 14:31:00 EDT, Dosing Weight Start Date: 12/22/22 Status: Ordered Start: 01-10-2022 take 1 capsule by [facility] once daily at mealtime tamsulosin 0.4 mg oral capsule See Instructions, TAKE ONE CAPSULE EVERY DAY WITH A MEAL, # 90 cap(s), 3 Refill(s), Pharmacy: [facility]/pharmacy #[id number], 186, cm, 12/28/21 10:29:00 EDT, Height, kg, 12/28/21 10:29:00 EDT, Dosing Weight Start Date: 01/10/22 Status: Ordered Start: 10-21-2020 take 1 capsule by [facility] once daily at mealtime tamsulosin 0.4 mg oral capsule See Instructions, TAKE ONE CAPSULE EVERY DAY WITH A MEAL, # 90 cap(s), 3 Refill(s), Pharmacy: [facility]/pharmacy #[id number], 186.5, cm, 11/02/20 14:37:00 EST, Height, kg, 08/03/20 14:37:00 EST, Dosing Weight Start Date: 10/21/20 Status: Ordered warfarin sodium 5 mg oral tablet (19 sources) Vitamin K Antagonist Start: 10-10-2023 warfarin 5 mg oral tablet See Instructions, Take one half tab orally on Mon. and 1 tab orally on the other days of the week., # 90 tab(s), 1 Refill(s), Pharmacy: [facility]/pharmacy #[id number], 185.5, cm, 10/10/23 15:02:00 EST, Height, kg, 10/10/23 15:02:00 EST, Dosing Weight Start Date: 10/10/23 Status: Ordered Start: 12-22-2022 warfarin 5 mg oral tablet See Instructions, Take one half tab orally on M-W-F and 1 tab orally on the other days of the week., # 90 tab(s), 1 Refill(s), Pharmacy: [facility]/pharmacy #[id number], 185.5, cm, 12/22/22 14:31:00 EDT, Height, kg, 12/22/22 14:31:00 EDT, Dosing Weight Start Date: 12/22/22 Status: Ordered Start: 07-07-2022 warfarin 5 mg oral tablet See Instructions, Take one half tab orally on M-W-F and 1 tab orally on the other days of the week., # 90 tab(s), 1 Refill(s), Pharmacy: [facility]/pharmacy #[id number], 187, cm, 07/07/22 15:27:00 EDT, Height, kg, 07/07/22 15:27:00 EDT, Dosing Weight Start Date: 07/07/22 Status: Ordered Start: 02-08-2022 warfarin 5 mg oral tablet See Instructions, Take one half tab orally on Monday and Monday and 1 tab orally on the other days of the week., # 90 tab(s), 1 Refill(s), Pharmacy: [facility]/pharmacy #[id number], 186.5, cm, 02/08/22 9:19:00 EDT, Height, kg, 02/08/22 9:19:00 EDT, Dosing Weight Start Date: 02/08/22 Status: Ordered Start: 09-28-2021 warfarin 5 mg oral tablet Dose : 5 mg = 1 tab(s), Oral, qDay, # 90 tab(s), 1 Refill(s), [id number], 185.4, cm, 09/28/21 11:27:00 EST, Height, kg, 09/28/21 11:27:00 EST, Dosing Weight Start Date: 09/28/21 Status: Ordered Start: 02-16-2021 warfarin 5 mg oral tablet Dose : 5 mg = 1 tab(s), Oral, qDay, # 90 tab(s), 1 Refill(s), [id number], 186, cm, 02/16/21 14:39:00 EDT, Height, kg, 02/16/21 14:39:00 EDT, Dosing Weight Start Date: 02/16/21 Status: Ordered Completed/Discontinued Medications Medication Drug Class(es) Dates Sig (Normalized) Sig (Original) traMADol hydrochloride 50 mg oral tablet (19 sources) Opioid Agonist Start: 04-10-2024 End: 07-09-2024 take 1-2 tablets by mouth every six hours as needed for pain traMADol 50 mg oral tablet 1-2 tab(s), Oral, q6h, PRN for pain, # 240 tab(s), 2 Refill(s), [id number], DDD (degenerative disc disease), lumbar, 185, cm, 04/10/24 16:03:00 EDT, Height, 121.2, kg, 04/10/24 16:03:00 EDT, Dosing Weight Start Date: 04/10/24 Stop Date: 07/09/24 Status: Ordered Start: 10-10-2023 End: 01-08-2024 take 1-2 tablets by mouth every six hours as needed for pain traMADol 50 mg oral tablet 1-2 tab(s), Oral, q6h, PRN for pain, # 240 tab(s), 2 Refill(s), Pharmacy: [facility]/pharmacy #[id number], DDD (degenerative disc disease), lumbar, 185.5, cm, 10/10/23 15:02:00 EST, Height, 121.2, kg, 10/10/23 15:02:00 EST, Dosing Weight Start Date: 10/10/23 Stop Date: 01/08/24 Status: Ordered Start: 04-03-2023 End: 07-02-2023 take 1-2 tablets by mouth every six hours as needed for pain traMADol 50 mg oral tablet 1-2 tab(s), Oral, q6h, PRN for pain, # 240 tab(s), 2 Refill(s), Pharmacy: [facility]/pharmacy #[id number], DDD (degenerative disc disease), lumbar, 186.4, cm, 04/03/23 14:33:00 EDT, Height, 119.4, kg, 04/03/23 14:33:00 EDT, Dosing Weight Start Date: 04/03/23 Stop Date: 07/02/23 Status: Ordered Start: 07-07-2022 End: 10-05-2022 take 1-2 tablets by mouth every six hours as needed for pain traMADol 50 mg oral tablet 1-2 tab(s), Oral, q6h, PRN for pain, # 240 tab(s), 2 Refill(s), Pharmacy: [facility]/pharmacy #[id number], DDD (degenerative disc disease), lumbar, 187, cm, 07/07/22 15:27:00 EDT, Height, 117.2, kg, 07/07/22 15:27:00 EDT, Dosing Weight Start Date: 07/07/22 Stop Date: 10/05/22 Status: Ordered Start: 09-28-2021 End: 03-28-2022 take 1-2 tablets by mouth every six hours as needed for pain traMADol 50 mg oral tablet 1-2 tab(s), Oral, q6h, PRN for pain, # 240 tab(s), 2 Refill(s), Pharmacy: [facility]/pharmacy #[id number], DDD (degenerative disc disease), lumbar, 186, cm, 12/28/21 10:29:00 EDT, Height, 124.2, kg, 12/28/21 10:29:00 EDT, Dosing Weight Start Date: 12/28/21 Stop Date: 03/28/22 Status: Ordered Start: 02-16-2021 End: 05-17-2021 take 1-2 tablets by mouth every six hours as needed for pain traMADol 50 mg oral tablet 1-2 tab(s), Oral, q6h, PRN for pain, # 240 tab(s), 2 Refill(s), Pharmacy: [facility]/pharmacy #[id number], DDD (degenerative disc disease), lumbar, 186, cm, 02/16/21 14:39:00 EDT, Height, 120, kg, 02/16/21 14:39:00 EDT, Dosing Weight Start Date: 02/16/21 Stop Date: 05/17/21 Status: Ordered Problems Problem Classification Problem Date Documented Da te Episodic/Chronic Allergic reactions (1 source) Allergic disposition 04-10-2024 Episodic Cardiac dysrhythmias (19 sources) Premature atrial contraction 07-15-2021 Chronic Cardiac dysrhythmias (19 sources) Bradycardia 07-15-2021 Episodic Coagulation and hemorrhagic disorders (20 sources) Factor V Leiden mutation; Translations: [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] Onset: 09-07-2021 11-13-2020 Chronic Conditions associated with dizziness or vertigo (17 sources) Dizziness 07-15-2021 Episodic Diabetes mellitus without complication (20 sources) Diabetes mellitus; Translations: [Type 2 diabetes mellitus without complication] Onset: 09-07-2021 01-11-2021 Chronic Disorders of lipid metabolism (20 sources) Hyperlipidemia; Translations: [Hyperlipidemia, unspecified] Onset: 09-07-2021 09-26-2019 Chronic Essential hypertension (20 sources) Hypertensive disorder; Translations: [Essential hypertension] Onset: 09-07-2021 09-26-2019 Chronic Fluid and electrolyte disorders (8 sources) Hyperkalemia 07-19-2022 Episodic Genitourinary symptoms and ill-defined conditions (12 sources) Proteinuria 02-08-2022 Episodic Hyperplasia of prostate (19 sources) Benign prostatic hypertrophy with outflow obstruction 04-03-2019 Chronic Mood disorders (19 sources) Chronic depression 04-03-2019 Chronic Other aftercare (19 sources) Long-term current use of anticoagulant 08-03-2020 Episodic Other aftercare (3 sources) Long-term current use of drug therapy; Translations: [Other fci (current) drug therapy] Episodic Other connective tissue disease (19 sources) Cramp in lower limb 04-20-2020 Episodic Other lower respiratory disease (3 sources) Hypoxia 04-03-2023 Episodic Other non-epithelial cancer of skin (19 sources) Malignant neoplasm of skin 08-11-2014 Episodic Other non-traumatic joint disorders (16 sources) Multiple joint pain 01-11-2021 Episodic Other nutritional; endocrine; and metabolic disorders (19 sources) Obesity 09-26-2019 Chronic Other nutritional; endocrine; and metabolic disorders (1 source) Morbid obesity; Translations: [Morbid (severe) obesity due to excess calories] Onset: 09-07-2021 Chronic Peripheral and visceral atherosclerosis (19 sources) Peripheral vascular disease 04-03-2019 Chronic Residual codes; unclassified (20 sources) Obstructive sleep apnea syndrome; Translations: [Obstructive sleep apnea (adult) (pediatric)] Onset: 09-07-2021 09-26-2019 Chronic Rheumatoid arthritis and related disease (19 sources) Inflammatory polyarthropathy; Translations: [Inflammatory polyarthropathy] Onset: 09-07-2021 Chronic Spondylosis; intervertebral disc disorders; other back problems (20 sources) Degeneration of lumbar intervertebral disc; Translations: [Lumbosacral spondylosis] 01-10-2020 Chronic Spondylosis; intervertebral disc disorders; other back problems (19 sources) Chronic low back pain 01-10-2020 Episodic Substance-related disorders (1 source) Tobacco dependence caused by cigarettes 04-10-2024 Chronic Syncope (1 source) Syncope and collapse; Translations: [Syncope and collapse] Onset: 09-07-2021 Episodic Unclassified (20 sources) Patient encounter status 09-26-2019 Results Test Name Value Interpretation Reference Range Facility .Auto Diffon 07-20-2024 Basophil, Absolute 0.1 10 3/mcL Normal 0.0-0.2 [facility] Comment on above: Performed By: #### A 1C, CBC, ANEU, ADIFF, GFR, PRO, BMP #### [id number] [place], [place] [address] Basophils/100 WBC (Bld) 0.5 % Normal 0.0-2.5 [facility] Comment on above: Performed By: #### A 1C, CBC, ANEU, ADIFF, GFR, PRO, BMP #### [id number] [place], [place] [address] Eosinophil, Absolute 0.3 10 3/mcL Normal 0.0-0.7 [facility] Comment on above: Performed By: #### A 1C, CBC, ANEU, ADIFF, GFR, PRO, BMP #### [address] [address] Eosinophils/100 WBC (Bld) 2.4 % Normal 0.0-7.0 [facility] Comment on above: Performed By: #### A 1C, CBC, ANEU, ADIFF, GFR, PRO, BMP #### [address] [address] Lymphocyte, Absolute 2.4 10 3/mcL Normal 0.9-4.3 [facility] Comment on above: Performed By: #### A 1C, CBC, ANEU, ADIFF, GFR, PRO, BMP #### [address] [address] Lymphocytes/100 WBC (Bld) 17.0 % Low 20.0-40.0 [facility] Comment on above: Performed By: #### A 1C, CBC, ANEU, ADIFF, GFR, PRO, BMP #### [address] [address] Monocyte, Absolute 1.0 10 3/mcL Normal 0.1-1.4 [facility] Comment on above: Performed By: #### A 1C, CBC, ANEU, ADIFF, GFR, PRO, BMP #### [address] [address] Monocytes/100 WBC (Bld) 7.0 % Normal 2.0-13.0 [facility] Comment on above: Performed By: #### A 1C, CBC, ANEU, ADIFF, GFR, PRO, BMP #### [address] [address] Neutrophils/100 WBC (Bld) 73.1 % Normal 50.0-75.0 [facility] Comment on above: Performed By: #### A 1C, CBC, ANEU, ADIFF, GFR, PRO, BMP #### [address] [address] .GFRon 07-20-2024 GFR 97 ml/min/1.73sqm Normal [facility] Comment on above: Result Comment: GFR Population mean for , Non- Americans Ages 20-29 = 116 mL/min/1.73 sq.m. Ages 30-39 = 107 mL/min/1.73 sq.m. Ages 40-49 = 99 mL/min/1.73 sq.m. Ages 50-59 = 93 mL/min/1.73 sq.m. Ages 60-69 = 85 mL/min/1.73 sq.m. Ages 70+ = 75 mL/min/1.73 sq.m. Chronic Kidney Disease: Less than 60 mL/min/1.73 square meters End Stage Renal Disease: Less than 15 mL/min/1.73 square meters Performed By: #### A 1C, CBC, ANEU, ADIFF, GFR, PRO, BMP #### [address] [address] GFR Non- 80 ml/min/1.73sqm Normal [facility] Comment on above: Result Comment: GFR Population mean for , Non- Americans Ages 20-29 = 116 mL/min/1.73 sq.m. Ages 30-39 = 107 mL/min/1.73 sq.m. Ages 40-49 = 99 mL/min/1.73 sq.m. Ages 50-59 = 93 mL/min/1.73 sq.m. Ages 60-69 = 85 mL/min/1.73 sq.m. Ages 70+ = 75 mL/min/1.73 sq.m. Chronic Kidney Disease: Less than 60 mL/min/1.73 square meters End Stage Renal Disease: Less than 15 mL/min/1.73 square meters Performed By: #### A 1C, CBC, ANEU, ADIFF, GFR, PRO, BMP #### [address] [id number] .NEUABSon 07-20-2024 Neutrophil, Absolute 10.3 10 3/mcL High 2.3-8.1 A [facility] Comment on above: Performed By: #### A 1C, CBC, ANEU, ADIFF, GFR, PRO, BMP #### [address] [id number] A1Con 07-20-2024 Glucose [Mass/Vol] 117 mg/dL Normal [facility] Comment on above: Result Comment: Shawna mated Average Glucose calculated by equation ((28.7xA1C)-46.7) Estimated average glucose (eAG) is a calculated value from Hemoglobin A1C and is claim representative of the average blood glucose level in the last 2-3 month period. Normal range: less than 114 mg/dL Performed By: #### A 1C, CBC, ANEU, ADIFF, GFR, PRO, BMP #### [address] [address] HbA1c (Bld) [Mass fraction] 5.7 % Normal 4.3-6.4 [facility] Comment on above: Performed By: #### A 1C, CBC, ANEU, ADIFF, GFR, PRO, BMP #### [address] [address] BMPon 07-20-2024 BUN/Creatinine Ratio 14 ratio Normal 7-27 [facility] Comment on above: Performed By: #### A 1C, CBC, ANEU, ADIFF, GFR, PRO, BMP #### [address] [address] Calcium [Mass/Vol] 9.7 mg/dL Normal 8.4-10.2 [facility] Comment on above: Performed By: #### A 1C, CBC, ANEU, ADIFF, GFR, PRO, BMP #### [address] [address] Chloride [Moles/Vol] 98 mmol/L Normal 98-107 [facility] Comment on above: Performed By: #### A 1C, CBC, ANEU, ADIFF, GFR, PRO, BMP #### [address] [address] CO2 [Moles/Vol] 30 mmol/L Normal 23-31 [facility] Comment on above: Performed By: #### A 1C, CBC, ANEU, ADIFF, GFR, PRO, BMP #### [address] [address] Creatinine [Mass/Vol] 0.93 mg/dL Normal 0.70-1.30 [facility] Comment on above: Result Comment: Test ing performed on Siemens Dimension EXL analyzer using a modified kinetic Yoseph technique. Performed By: #### A 1C, CBC, ANEU, ADIFF, GFR, PRO, BMP #### [address] [address] Electrolyte Balance 7.0 mEq/L Normal 4.0-15.0 [facility] Comment on above: Performed By: #### A 1C, CBC, ANEU, ADIFF, GFR, PRO, BMP #### [address] [address] Glucose [Mass/Vol] 194 mg/dL High 83-110 [facility] Comment on above: Performed By: #### A 1C, CBC, ANEU, ADIFF, GFR, PRO, BMP #### [address] [address] Potassium [Moles/Vol] 4.8 mmol/L Normal 3.5-5.1 [facility] Comment on above: Performed By: #### A 1C, CBC, ANEU, ADIFF, GFR, PRO, BMP #### [address] [address] Sodium [Moles/Vol] 135 mmol/L Low 136-145 [facility] Comment on above: Performed By: #### A 1C, CBC, ANEU, ADIFF, GFR, PRO, BMP #### [address] [address] Urea nitrogen [Mass/Vol] 13 mg/dL Normal 7-18 [facility] Comment on above: Performed By: #### A 1C, CBC, ANEU, ADIFF, GFR, PRO, BMP #### [address] [address] CBCon 07-20-2024 Erythrocyte distribution width (RBC) [Ratio] 13.8 % Normal 11.5-15.5 [facility] Comment on above: Performed By: #### A 1C, CBC, ANEU, ADIFF, GFR, PRO, BMP #### [address] [address] Hematocrit (Bld) [Volume fraction] 45.1 % Normal 40.0-52.0 [facility] Comment on above: Performed By: #### A 1C, CBC, ANEU, ADIFF, GFR, PRO, BMP #### [address] [address] Hgb 15.2 G/dL Normal 13.0-17.5 [facility] Comment on above: Performed By: #### A 1C, CBC, ANEU, ADIFF, GFR, PRO, BMP #### [address] [address] MCH (RBC) [Entitic mass] 33.7 pg High 27.0-33.0 [facility] Comment on above: Performed By: #### A 1C, CBC, ANEU, ADIFF, GFR, PRO, BMP #### [place] [address] MCHC 33.8 G/dL Normal 32.0-36.0 [facility] Comment on above: Performed By: #### A 1C, CBC, ANEU, ADIFF, GFR, PRO, BMP #### [place] [address] MCV (RBC) [Entitic vol] 99.8 fL Normal 81.0-100.0 [facility] Comment on above: Performed By: #### A 1C, CBC, ANEU, ADIFF, GFR, PRO, BMP #### [address] [address] Platelet 316 10 3/mcL Normal 150-450 [facility] Comment on above: Performed By: #### A 1C, CBC, ANEU, ADIFF, GFR, PRO, BMP #### [place] [address] Platelet mean volume (Bld) [Entitic vol] 8.0 fL Normal 6.4-10.5 [facility] Comment on above: Performed By: #### A 1C, CBC, ANEU, ADIFF, GFR, PRO, BMP #### [address] [address] RBC 4.52 10 6/mcL Normal 4.50-6.00 [facility] Comment on above: Performed By: #### A 1C, CBC, ANEU, ADIFF, GFR, PRO, BMP #### [address] [place], [place] [address] WBC 14.2 10 3/mcL High 4.5-10.8 [facility] Comment on above: Performed By: #### A 1C, CBC, ANEU, ADIFF, GFR, PRO, BMP #### [address] [place], [place] [address] LABORATORYOrdered By: SYSTEM SYSTEM on 07-20-2024 Basophils (Bld) [#/Vol] 0.1 103/mcL Normal 0.0 - 0.2 10^3/mcL AO Workflow SS Basophils/100 WBC (Bld) 0.5 % Normal 0.0 - 2.5 % AO Workflow SS Calcium [Mass/Vol] 9.7 mg/dL Normal 8.4 - 10. 2 mg/dL AO ADM SS Chloride [Moles/Vol] 98 mmol/L Normal 98 - 10 7 mmol/L AO ADM SS CO2 [Moles/Vol] 30 mmol/L Normal 23 - 31 mmol/L AO ADM SS Creatinine [Mass/Vol] 0.93 mg/dL Normal 0.70 - 1.30 mg/dL AO ADM SS Comment on above: Interpretive Data: T esting performed on Siemens Dimension EXL analyzer using a modified kinetic Yoseph technique. Electrolyte Balance 7.0 mEq/L Normal 4.0 - 15 .0 mEq/L AO ADM SS Eosinophil, Absolute 0.3 103/mcL Normal 0.0 - 0 .7 10^3/mcL AO Workflow SS Eosinophils/100 WBC (Bld) 2.4 % Normal 0.0 - 7.0 % AO Workflow SS Erythrocyte distribution width (RBC) [Ratio] 13.8 % Normal 11.5 - 15.5 % AO Workflow SS GFR/1.73 sq M.predicted among blacks MDRD (S/P/Bld) [Vol rate/Area] 97 ml/min/1.73sqm Invalid Interpretation Code AO Chemistry S Comment on above: Interpretive Data: GFR Population mean for , Non- Americans Ages 20-29 = 116 mL/min/1.73 sq.m. Ages 30-39 = 107 mL/min/1.73 sq.m. Ages 40-49 = 99 mL/min/1.73 sq.m. Ages 50-59 = 93 mL/min/1.73 sq.m. Ages 60-69 = 85 mL/min/1.73 sq.m. Ages 70+ = 75 mL/min/1.73 sq.m. Chronic Kidney Disease: Less than 60 mL/min/1.73 square meters End Stage Renal Disease: Less than 15 mL/min/1.73 square meters GFR/1.73 sq M.predicted among non-blacks MDRD (S/P/Bld) [Vol rate/Area] 80 ml/min/1.73sqm Invalid Interpretation Code AO Chemistry S Comment on above: Interpretive Data: GFR Population mean for , Non- Americans Ages 20-29 = 116 mL/min/1.73 sq.m. Ages 30-39 = 107 mL/min/1.73 sq.m. Ages 40-49 = 99 mL/min/1.73 sq.m. Ages 50-59 = 93 mL/min/1.73 sq.m. Ages 60-69 = 85 mL/min/1.73 sq.m. Ages 70+ = 75 mL/min/1.73 sq.m. Chronic Kidney Disease: Less than 60 mL/min/1.73 square meters End Stage Renal Disease: Less than 15 mL/min/1.73 square meters Glucose [Mass/Vol] 194 mg/dL High 83 - 110 mg/dL AO ADM SS Glucose [Mass/Vol] 117 mg/dL Invalid Interpretation Code AO Chemistry S Comment on above: Interpretive Data: E stimated average glucose (eAG) is a calculated value from Hemoglobin A1C and is claim representative of the average blood glucose level in the last 2-3 month period. Normal range: less than 114 mg/dL HbA1c (Bld) [Mass fraction] 5.7 % Normal 4.3 - 6.4 % AO ADM SS Hematocrit (Bld) [Volume fraction] 45.1 % Normal 40.0 - 52.0 % AO Workflow SS Hemoglobin (Bld) [Mass/Vol] 15.2 G/dL Normal 13.0 - 17.5 G/dL AO Workflow SS INR Coag (PPP) [Relative time] 4.0 {INR} Invalid Interpretation Code AO [facility] SS Comment on above: Interpretive Data: Eugenio dubon [employer] (CHEST, 1991, 102:[id number]) recommended therapeutic range for oral anticoagulant therapy is: LOW RISK: Prophylaxis of venous thrombosis INR: 2.0-3.0 Treatment of pulmonary embolism 2.0-3.0 Prevention of systemic embolism 2.0-3.0 HIGH RISK: Mechanical prosthetic valves 2.5-3.5 Lymphocytes (Bld) [#/Vol] 2.4 103/mcL Normal 0.9 - 4.3 10^3/mcL AO Workflow SS Lymphocytes/100 WBC (Bld) 17.0 % Low 20.0 - 40.0 % AO Workflow SS MCH (RBC) [Entitic mass] 33.7 pg High 27.0 - 33.0 pg AO Workflow SS MCHC 33.8 G/dL Normal 32.0 - 36.0 G/dL AO Workflow SS MCV (RBC) [Entitic vol] 99.8 fL Normal 81.0 - 100.0 fL AO Workflow SS Monocytes (Bld) [#/Vol] 1.0 103/mcL Normal 0.1 - 1.4 10^3/mcL AO Workflow SS Monocytes/100 WBC (Bld) 7.0 % Normal 2.0 - 13.0 % AO Workflow SS Neutrophils (Bld) [#/Vol] 10.3 103/mcL High 2.3 - 8.1 10^3/mcL AO Workflow SS Neutrophils/100 WBC (Bld) 73.1 % Normal 50.0 - 75.0 % AO Workflow SS Platelet mean volume (Bld) [Entitic vol] 8.0 fL Normal 6.4 - 10.5 fL AO Workflow SS Platelets (Bld) [#/Vol] 316 103/mcL Normal 150 - 450 10^3/mcL AO Workflow SS Potassium [Moles/Vol] 4.8 mmol/L Normal 3.5 - 5.1 mmol/L AO ADM SS PT Coag (PPP) [Time] 47.2 s High 9.0 - 1 4.4 seconds AO [facility] SS RBC (Bld) [#/Vol] 4.52 106/mcL Normal 4.50 - 6.0 0 10^6/mcL AO Workflow SS Sodium [Moles/Vol] 135 mmol/L Low 136 - 145 mmol/L AO ADM SS Urea nitrogen [Mass/Vol] 13 mg/dL Normal 7 - 18 mg/dL AO ADM SS Urea nitrogen/Creatinine [Mass ratio] 14 ratio Normal 7 - 27 ratio AO ADM SS WBC (Bld) [#/Vol] 14.2 103/mcL High 4.5 - 10.8 10^3/mcL AO Workflow SS PROon 07-20-2024 PT Coag (PPP) [Time] 47.2 s High 9.0-14.4 [facility] Comment on above: Performed By: #### A 1C, CBC, ANEU, ADIFF, GFR, PRO, BMP #### [address] [address] PT International Ratio 4.0 Normal [facility] Comment on above: Result Comment: [employer] (CHEST, 1992, 102:[id number]) recommended therapeutic range for oral anticoagulant therapy is: LOW RISK: Prophylaxis of venous thrombosis INR: 2.0-3.0 Treatment of pulmonary embolism 2.0-3.0 Prevention of systemic embolism 2.0-3.0 HIGH RISK: Mechanical prosthetic valves 2.5-3.5 Performed By: #### A 1C, CBC, ANEU, ADIFF, GFR, PRO, BMP #### [address] [address] .Auto Diffon 01-24-2024 Basophil, Absolute 0.0 10 3/mcL Normal 0.0-0.2 [facility] [place] Comment on above: Performed By: #### A DIFF, CMP, ANEU, CBC, GFR #### [address] [address] Basophils/100 WBC (Bld) 0.5 % Normal 0.0-2.5 [facility] ([place]) Comment on above: Performed By: #### A DIFF, CMP, ANEU, CBC, GFR #### [address] [address] Eosinophil, Absolute 0.1 10 3/mcL Normal 0.0-0.4 [facility] ([place]) Comment on above: Performed By: #### A DIFF, CMP, ANEU, CBC, GFR #### [address] [address] Eosinophils/100 WBC (Bld) 1.3 % Normal 0.0-7.0 [facility] ([place]) Comment on above: Performed By: #### A DIFF, CMP, ANEU, CBC, GFR #### [address] [address] Lymphocyte, Absolute 1.9 10 3/mcL Normal 0.8-3.9 [facility] ([place]) Comment on above: Performed By: #### A DIFF, CMP, ANEU, CBC, GFR #### [address] [address] Lymphocytes/100 WBC (Bld) 21.6 % Normal 10.0-50.0 [facility] ([place]) Comment on above: Performed By: #### A DIFF, CMP, ANEU, CBC, GFR #### [address] [address] Monocyte, Absolute 0.9 10 3/mcL Normal 0.2-1.0 [facility] [place] Comment on above: Performed By: #### A DIFF, CMP, ANEU, CBC, GFR #### [address] [address] Monocytes/100 WBC (Bld) 10.1 % Normal 1.7-13.0 [facility] ([place]) Comment on above: Performed By: #### A DIFF, CMP, ANEU, CBC, GFR #### [address] [address] Neutrophils/100 WBC (Bld) 66.5 % Normal 37.0-80.0 [facility] ([place]) Comment on above: Performed By: #### A DIFF, CMP, ANEU, CBC, GFR #### [address] [address] .GFRon 01-24-2024 GFR 90 ml/min/1.73sqm Normal [facility] ([place]) Comment on above: Result Comment: GFR Population mean for , Non- Americans Ages 20-29 = 116 mL/min/1.73 sq.m. Ages 30-39 = 107 mL/min/1.73 sq.m. Ages 40-49 = 99 mL/min/1.73 sq.m. Ages 50-59 = 93 mL/min/1.73 sq.m. Ages 60-69 = 85 mL/min/1.73 sq.m. Ages 70+ = 75 mL/min/1.73 sq.m. Chronic Kidney Disease: Less than 60 mL/min/1.73 square meters End Stage Renal Disease: Less than 15 mL/min/1.73 square meters Performed By: #### A DIFF, CMP, ANEU, CBC, GFR #### [address] [address] GFR Non- 74 ml/min/1.73sqm Normal [facility] ([place]) Comment on above: Result Comment: GFR Population mean for , Non- Americans Ages 20-29 = 116 mL/min/1.73 sq.m. Ages 30-39 = 107 mL/min/1.73 sq.m. Ages 40-49 = 99 mL/min/1.73 sq.m. Ages 50-59 = 93 mL/min/1.73 sq.m. Ages 60-69 = 85 mL/min/1.73 sq.m. Ages 70+ = 75 mL/min/1.73 sq.m. Chronic Kidney Disease: Less than 60 mL/min/1.73 square meters End Stage Renal Disease: Less than 15 mL/min/1.73 square meters Performed By: #### A DIFF, CMP, ANEU, CBC, GFR #### [address] [address] .NEUABSon 01-24-2024 Neutrophil, Absolute 5.9 10 3/mcL Normal 2.9-6.2 [facility] ([place]) Comment on above: Performed By: #### A DIFF, CMP, ANEU, CBC, GFR #### [address] [address] CBCon 01-24-2024 Erythrocyte distribution width (RBC) [Ratio] 13.8 % Normal 11.5-14.5 [facility] ([place]) Comment on above: Performed By: #### A DIFF, CMP, ANEU, CBC, GFR #### [address] [address] Hematocrit (Bld) [Volume fraction] 49.9 % Normal 42.0-52.0 [facility] ([place]) Comment on above: Performed By: #### A DIFF, CMP, ANEU, CBC, GFR #### [address] [address] Hgb 17.1 G/dL Normal 14.0-18.0 [facility] ([place]) Comment on above: Performed By: #### A DIFF, CMP, ANEU, CBC, GFR #### [address] [address] MCH (RBC) [Entitic mass] 33.1 pg High 27.0-31.2 [facility] ([place]) Comment on above: Performed By: #### A DIFF, CMP, ANEU, CBC, GFR #### [address] [address] MCHC 34.2 G/dL Normal 31.8-35.4 [facility] ([place]) Comment on above: Performed By: #### A DIFF, CMP, ANEU, CBC, GFR #### [address] [address] MCV (RBC) [Entitic vol] 96.6 fL High 80.0-94.0 [facility] ([place]) Comment on above: Performed By: #### A DIFF, CMP, ANEU, CBC, GFR #### [address] [address] Platelet 187 10 3/mcL Normal 130-400 [facility] ([place]) Comment on above: Performed By: #### A DIFF, CMP, ANEU, CBC, GFR #### [address] [address] Platelet mean volume (Bld) [Entitic vol] 8.6 fL Normal 7.4-10.4 [facility] ([place]) Comment on above: Performed By: #### A DIFF, CMP, ANEU, CBC, GFR #### [address] [address] RBC 5.17 10 6/mcL Normal 4.04-6.13 Count includes the [facility] ([place]) Comment on above: Performed By: #### A DIFF, CMP, ANEU, CBC, GFR #### [address] [address] WBC 8.8 10 3/mcL Normal 4.6-10.8 [facility] ([place]) Comment on above: Performed By: #### A DIFF, CMP, ANEU, CBC, GFR #### [address] [address] CMPon 01-24-2024 Albumin Level 3.9 G/dL Normal 3.4-4.8 Count includes the [facility] ([place]) Comment on above: Performed By: #### A DIFF, CMP, ANEU, CBC, GFR #### [address] [address] Albumin/Globulin [Mass ratio] 1.2 {ratio} Normal 1.1-2.5 [facility] ([place]) Comment on above: Performed By: #### A DIFF, CMP, ANEU, CBC, GFR #### [address] [address] ALP [Catalytic activity/Vol] 69 U/L Normal 40-135 [facility] ([place]) Comment on above: Performed By: #### A DIFF, CMP, ANEU, CBC, GFR #### [address] [address] ALT [Catalytic activity/Vol] 34 U/L Normal 16-63 [facility] ([place]) Comment on above: Performed By: #### A DIFF, CMP, ANEU, CBC, GFR #### [address] [address] AST [Catalytic activity/Vol] 30 U/L Normal 10-40 [facility] ([place]) Comment on above: Performed By: #### A DIFF, CMP, ANEU, CBC, GFR #### [address] [address] Bili Total 0.9 mg/dL Normal 0.2-1.0 [facility] ([place]) Comment on above: Result Comment: Use of this assay is not recommended for patients undergoing treatment with eltrombopag due to the potential for falsely elevated results. Performed By: #### A DIFF, CMP, ANEU, CBC, GFR #### [address] [address] BUN/Creatinine Ratio 12 ratio Normal 7-27 [facility] [place] Comment on above: Performed By: #### A DIFF, CMP, ANEU, CBC, GFR #### [address] [address] Calcium [Mass/Vol] 10.3 mg/dL High 8.4-10.2 [facility] ([place]) Comment on above: Performed By: #### A DIFF, CMP, ANEU, CBC, GFR #### [address] [address] Chloride [Moles/Vol] 99 mmol/L Normal 98-107 [facility] [place] Comment on above: Performed By: #### A DIFF, CMP, ANEU, CBC, GFR #### [address] [address] CO2 [Moles/Vol] 29 mmol/L Normal 23-31 [facility] ([place]) Comment on above: Performed By: #### A DIFF, CMP, ANEU, CBC, GFR #### [address] [address] Creatinine [Mass/Vol] 0.99 mg/dL Normal 0.70-1.30 [facility] ([place]) Comment on above: Performed By: #### A DIFF, CMP, ANEU, CBC, GFR #### [address] [address] Electrolyte Balance 9.0 mEq/L Normal 4.0-15.0 [facility] ([place]) Comment on above: Performed By: #### A DIFF, CMP, ANEU, CBC, GFR #### [address] [address] Globulin 3.2 G/dL Normal [facility] ([place]) Comment on above: Performed By: #### A DIFF, CMP, ANEU, CBC, GFR #### [address] [address] Glucose [Mass/Vol] 61 mg/dL Low 83-110 [facility] ([place]) Comment on above: Performed By: #### A DIFF, CMP, ANEU, CBC, GFR #### [address] [address] Potassium [Moles/Vol] 5.2 mmol/L High 3.5-5.1 [facility] ([place]) Comment on above: Performed By: #### A DIFF, CMP, ANEU, CBC, GFR #### [address] [address] Sodium [Moles/Vol] 137 mmol/L Normal 136-145 [facility] ([place]) Comment on above: Performed By: #### A DIFF, CMP, ANEU, CBC, GFR #### [address] [address] Total Protein 7.1 G/dL Normal 6.4-8.2 Count includes the [facility] ([place]) Comment on above: Performed By: #### A DIFF, CMP, ANEU, CBC, GFR #### [address] [address] Urea nitrogen [Mass/Vol] 12 mg/dL Normal 7-18 [facility] ([place]) Comment on above: Performed By: #### A DIFF, CMP, ANEU, CBC, GFR #### [address] [address] LABORATORYOrdered By: SYSTEM SYSTEM on 01-24-2024 Albumin BCP dye [Mass/Vol] 3.9 G/dL Normal 3.4 - 4.8 G/dL AO ADM SS Albumin/Globulin [Mass ratio] 1.2 {ratio} Normal 1.1 - 2.5 ratio AO ADM SS ALP [Catalytic activity/Vol] 69 U/L Normal 40 - 135 U/L AO ADM SS ALT With P-5'-P [Catalytic activity/Vol] 34 U/L Normal 16 - 63 U/L AO ADM SS AST With P-5'-P [Catalytic activity/Vol] 30 U/L Normal 10 - 40 U/L AO ADM SS Basophil, Absolute 0.0 103/mcL Normal 0.0 - 0.2 10^3/mcL AO Workflow SS Basophils/100 WBC (Bld) 0.5 % Normal 0.0 - 2.5 % AO Workflow SS Bilirubin [Mass/Vol] 0.9 mg/dL Normal 0.2 - 1 .0 mg/dL AO ADM SS Comment on above: Interpretive Data: U se of this assay is not recommended for patients undergoing treatment with eltrombopag due to the potential for falsely elevated results. Calcium [Mass/Vol] 10.3 mg/dL High 8.4 - 10. 2 mg/dL AO ADM SS Chloride [Moles/Vol] 99 mmol/L Normal 98 - 10 7 mmol/L AO ADM SS CO2 [Moles/Vol] 29 mmol/L Normal 23 - 31 mmol/L AO ADM SS Creatinine [Mass/Vol] 0.99 mg/dL Normal 0.70 - 1.30 mg/dL AO ADM SS Electrolyte Balance 9.0 mEq/L Normal 4.0 - 15 .0 mEq/L AO ADM SS Eosinophil, Absolute 0.1 103/mcL Normal 0.0 - 0 .4 10^3/mcL AO Workflow SS Eosinophils/100 WBC (Bld) 1.3 % Normal 0.0 - 7.0 % AO Workflow SS Erythrocyte distribution width (RBC) [Ratio] 13.8 % Normal 11.5 - 14.5 % AO Workflow SS GFR/1.73 sq M.predicted among blacks MDRD (S/P/Bld) [Vol rate/Area] 90 ml/min/1.73sqm Invalid Interpretation Code AO Chemistry S Comment on above: Interpretive Data: GFR Population mean for , Non- Americans Ages 20-29 = 116 mL/min/1.73 sq.m. Ages 30-39 = 107 mL/min/1.73 sq.m. Ages 40-49 = 99 mL/min/1.73 sq.m. Ages 50-59 = 93 mL/min/1.73 sq.m. Ages 60-69 = 85 mL/min/1.73 sq.m. Ages 70+ = 75 mL/min/1.73 sq.m. Chronic Kidney Disease: Less than 60 mL/min/1.73 square meters End Stage Renal Disease: Less than 15 mL/min/1.73 square meters GFR/1.73 sq M.predicted among non-blacks MDRD (S/P/Bld) [Vol rate/Area] 74 ml/min/1.73sqm Invalid Interpretation Code AO Chemistry S Comment on above: Interpretive Data: GFR Population mean for , Non- Americans Ages 20-29 = 116 mL/min/1.73 sq.m. Ages 30-39 = 107 mL/min/1.73 sq.m. Ages 40-49 = 99 mL/min/1.73 sq.m. Ages 50-59 = 93 mL/min/1.73 sq.m. Ages 60-69 = 85 mL/min/1.73 sq.m. Ages 70+ = 75 mL/min/1.73 sq.m. Chronic Kidney Disease: Less than 60 mL/min/1.73 square meters End Stage Renal Disease: Less than 15 mL/min/1.73 square meters Globulin 3.2 G/dL Invalid Interpretation Code AO ADM SS Glucose [Mass/Vol] 61 mg/dL Low 83 - 110 mg/dL AO ADM SS Hematocrit (Bld) [Volume fraction] 49.9 % Normal 42.0 - 52.0 % AO Workflow SS Hemoglobin (Bld) [Mass/Vol] 17.1 G/dL Normal 14.0 - 18.0 G/dL AO Workflow SS Lymphocyte, Absolute 1.9 103/mcL Normal 0.8 - 3 .9 10^3/mcL AO Workflow SS Lymphocytes/100 WBC (Bld) 21.6 % Normal 10.0 - 50.0 % AO Workflow SS MCH (RBC) [Entitic mass] 33.1 pg High 27.0 - 31.2 pg AO Workflow SS MCHC 34.2 G/dL Normal 31.8 - 35.4 G/dL AO Workflow SS MCV (RBC) [Entitic vol] 96.6 fL High 80.0 - 94.0 fL AO Workflow SS Monocyte, Absolute 0.9 103/mcL Normal 0.2 - 1.0 10^3/mcL AO Workflow SS Monocytes/100 WBC (Bld) 10.1 % Normal 1.7 - 13.0 % AO Workflow SS Neutrophil, Absolute 5.9 103/mcL Normal 2.9 - 6 .2 10^3/mcL AO Workflow SS Neutrophils/100 WBC (Bld) 66.5 % Normal 37.0 - 80.0 % AO Workflow SS Platelet mean volume (Bld) [Entitic vol] 8.6 fL Normal 7.4 - 10.4 fL AO Workflow SS Platelets (Bld) [#/Vol] 187 103/mcL Normal 130 - 400 10^3/mcL AO Workflow SS Potassium [Moles/Vol] 5.2 mmol/L High 3.5 - 5.1 mmol/L AO ADM SS Protein [Mass/Vol] 7.1 G/dL Normal 6.4 - 8.2 G/dL AO ADM SS RBC (Bld) [#/Vol] 5.17 106/mcL Normal 4.04 - 6.1 3 10^6/mcL AO Workflow SS Sodium [Moles/Vol] 137 mmol/L Normal 136 - 145 mmol/L AO ADM SS Urea nitrogen [Mass/Vol] 12 mg/dL Normal 7 - 18 mg/dL AO ADM SS Urea nitrogen/Creatinine [Mass ratio] 12 ratio Normal 7 - 27 ratio AO ADM SS WBC (Bld) [#/Vol] 8.8 103/mcL Normal 4.6 - 10.8 10^3/mcL AO Workflow SS .Auto Diffon 07-31-2023 Basophil, Absolute 0.0 10 3/mcL Normal 0.0-0.2 [facility] [place] Comment on above: Performed By: #### A DIFF, CMP, ANEU, CBC, GFR #### [address] [address] Basophils/100 WBC (Bld) 0.4 % Normal 0.0-2.5 [facility] ([place]) Comment on above: Performed By: #### A DIFF, CMP, ANEU, CBC, GFR #### [address] [address] Eosinophil, Absolute 0.1 10 3/mcL Normal 0.0-0.4 [facility] ([place]) Comment on above: Performed By: #### A DIFF, CMP, ANEU, CBC, GFR #### [address] [place], [place] [address] Eosinophils/100 WBC (Bld) 0.7 % Normal 0.0-7.0 [facility] ([place]) Comment on above: Performed By: #### A DIFF, CMP, ANEU, CBC, GFR #### [address] [address] Lymphocyte, Absolute 2.5 10 3/mcL Normal 0.8-3.9 [facility] ([place]) Comment on above: Performed By: #### A DIFF, CMP, ANEU, CBC, GFR #### [address] [address] Lymphocytes/100 WBC (Bld) 21.9 % Normal 10.0-50.0 [facility] ([place]) Comment on above: Performed By: #### A DIFF, CMP, ANEU, CBC, GFR #### [address] [address] Monocyte, Absolute 0.7 10 3/mcL Normal 0.2-1.0 [facility] [place] Comment on above: Performed By: #### A DIFF, CMP, ANEU, CBC, GFR #### [address] [address] Monocytes/100 WBC (Bld) 5.8 % Normal 1.7-13.0 [facility] ([place]) Comment on above: Performed By: #### A DIFF, CMP, ANEU, CBC, GFR #### [address] [address] Neutrophils/100 WBC (Bld) 71.2 % Normal 37.0-80.0 [facility] ([place]) Comment on above: Performed By: #### A DIFF, CMP, ANEU, CBC, GFR #### [address] [address] .GFRon 07-31-2023 GFR Non- 69 ml/min/1.73sqm Normal [facility] ([place]) Comment on above: Result Comment: GFR Population mean for , Non- Americans Ages 20-29 = 116 mL/min/1.73 sq.m. Ages 30-39 = 107 mL/min/1.73 sq.m. Ages 40-49 = 99 mL/min/1.73 sq.m. Ages 50-59 = 93 mL/min/1.73 sq.m. Ages 60-69 = 85 mL/min/1.73 sq.m. Ages 70+ = 75 mL/min/1.73 sq.m. Chronic Kidney Disease: Less than 60 mL/min/1.73 square meters End Stage Renal Disease: Less than 15 mL/min/1.73 square meters Performed By: #### A DIFF, CMP, ANEU, CBC, GFR #### [address] [address] GFR 83 ml/min/1.73sqm Normal [facility] ([place]) Comment on above: Result Comment: GFR Population mean for , Non- Americans Ages 20-29 = 116 mL/min/1.73 sq.m. Ages 30-39 = 107 mL/min/1.73 sq.m. Ages 40-49 = 99 mL/min/1.73 sq.m. Ages 50-59 = 93 mL/min/1.73 sq.m. Ages 60-69 = 85 mL/min/1.73 sq.m. Ages 70+ = 75 mL/min/1.73 sq.m. Chronic Kidney Disease: Less than 60 mL/min/1.73 square meters End Stage Renal Disease: Less than 15 mL/min/1.73 square meters Performed By: #### A DIFF, CMP, ANEU, CBC, GFR #### [address] [address] .NEUABSon 07-31-2023 Neutrophil, Absolute 8.2 10 3/mcL High 2.9-6.2 [facility] ([place]) Comment on above: Performed By: #### A DIFF, CMP, ANEU, CBC, GFR #### [address] [address] CBCon 07-31-2023 Erythrocyte distribution width (RBC) [Ratio] 13.9 % Normal 11.5-14.5 [facility] ([place]) Comment on above: Performed By: #### A DIFF, CMP, ANEU, CBC, GFR #### [address] [address] Hematocrit (Bld) [Volume fraction] 49.1 % Normal 42.0-52.0 [facility] ([place]) Comment on above: Performed By: #### A DIFF, CMP, ANEU, CBC, GFR #### [address] [address] Hgb 16.7 G/dL Normal 14.0-18.0 [facility] ([place]) Comment on above: Performed By: #### A DIFF, CMP, ANEU, CBC, GFR #### [address] [address] MCH (RBC) [Entitic mass] 33.1 pg High 27.0-31.2 [facility] ([place]) Comment on above: Performed By: #### A DIFF, CMP, ANEU, CBC, GFR #### [address] [address] MCHC 34.0 G/dL Normal 31.8-35.4 [facility] ([place]) Comment on above: Performed By: #### A DIFF, CMP, ANEU, CBC, GFR #### [address] [address] MCV (RBC) [Entitic vol] 97.3 fL High 80.0-94.0 [facility] ([place]) Comment on above: Performed By: #### A DIFF, CMP, ANEU, CBC, GFR #### [address] [address] Platelet 227 10 3/mcL Normal 130-400 [facility] ([place]) Comment on above: Performed By: #### A DIFF, CMP, ANEU, CBC, GFR #### [address] [address] Platelet mean volume (Bld) [Entitic vol] 8.8 fL Normal 7.4-10.4 [facility] ([place]) Comment on above: Performed By: #### A DIFF, CMP, ANEU, CBC, GFR #### [address] [address] RBC 5.04 10 6/mcL Normal 4.04-6.13 Count includes the [facility] ([place]) Comment on above: Performed By: #### A DIFF, CMP, ANEU, CBC, GFR #### [address] [address] WBC 11.5 10 3/mcL High 4.6-10.8 Count includes the [facility] ([place]) Comment on above: Performed By: #### A DIFF, CMP, ANEU, CBC, GFR #### [address] [address] CMPon 07-31-2023 Albumin Level 3.7 G/dL Normal 3.4-4.8 Count includes the [facility] ([place]) Comment on above: Performed By: #### A DIFF, CMP, ANEU, CBC, GFR #### [address] [address] Albumin/Globulin [Mass ratio] 1.0 {ratio} Low 1.1-2.5 [facility] ([place]) Comment on above: Performed By: #### A DIFF, CMP, ANEU, CBC, GFR #### [address] [address] ALP [Catalytic activity/Vol] 78 U/L Normal 40-135 [facility] ([place]) Comment on above: Performed By: #### A DIFF, CMP, ANEU, CBC, GFR #### [address] [address] ALT [Catalytic activity/Vol] 26 U/L Normal 16-63 [facility] ([place]) Comment on above: Performed By: #### A DIFF, CMP, ANEU, CBC, GFR #### [address] [address] AST [Catalytic activity/Vol] 16 U/L Normal 10-40 [facility] ([place]) Comment on above: Performed By: #### A DIFF, CMP, ANEU, CBC, GFR #### [address] [address] Bili Total 0.3 mg/dL Normal 0.2-1.0 [facility] ([place]) Comment on above: Result Comment: Use of this assay is not recommended for patients undergoing treatment with eltrombopag due to the potential for falsely elevated results. Performed By: #### A DIFF, CMP, ANEU, CBC, GFR #### [address] [address] BUN/Creatinine Ratio 11 ratio Normal 7-27 [facility] [place] Comment on above: Performed By: #### A DIFF, CMP, ANEU, CBC, GFR #### [address] [address] Calcium [Mass/Vol] 9.9 mg/dL Normal 8.4-10.2 [facility] ([place]) Comment on above: Performed By: #### A DIFF, CMP, ANEU, CBC, GFR #### [place] [id number] Chloride [Moles/Vol] 99 mmol/L Normal 98-107 [facility] [place] Comment on above: Performed By: #### A DIFF, CMP, ANEU, CBC, GFR #### [place] [id number] CO2 [Moles/Vol] 31 mmol/L Normal 23-31 [facility] ([place]) Comment on above: Performed By: #### A DIFF, CMP, ANEU, CBC, GFR #### [address] [address] Creatinine [Mass/Vol] 1.06 mg/dL Normal 0.70-1.30 [facility] ([place]) Comment on above: Performed By: #### A DIFF, CMP, ANEU, CBC, GFR #### [address] [address] Electrolyte Balance 7.0 mEq/L Normal 4.0-15.0 [facility] ([place]) Comment on above: Performed By: #### A DIFF, CMP, ANEU, CBC, GFR #### [address] [address] Globulin 3.7 G/dL Normal [facility] ([place]) Comment on above: Performed By: #### A DIFF, CMP, ANEU, CBC, GFR #### [address] [address] Glucose [Mass/Vol] 137 mg/dL High 83-110 [facility] ([place]) Comment on above: Performed By: #### A DIFF, CMP, ANEU, CBC, GFR #### [address] [address] Potassium [Moles/Vol] 5.4 mmol/L High 3.5-5.1 [facility] ([place]) Comment on above: Performed By: #### A DIFF, CMP, ANEU, CBC, GFR #### [address] [address] Sodium [Moles/Vol] 137 mmol/L Normal 136-145 [facility] ([place]) Comment on above: Performed By: #### A DIFF, CMP, ANEU, CBC, GFR #### [address] [address] Total Protein 7.4 G/dL Normal 6.4-8.2 Count includes the [facility] ([place]) Comment on above: Performed By: #### A DIFF, CMP, ANEU, CBC, GFR #### [address] [address] Urea nitrogen [Mass/Vol] 12 mg/dL Normal 7-18 [facility] ([place]) Comment on above: Performed By: #### A DIFF, CMP, ANEU, CBC, GFR #### [address] [address] LABORATORYOrdered By: SYSTEM SYSTEM on 07-31-2023 Albumin BCP dye [Mass/Vol] 3.7 G/dL Invalid Interpretation Code 3.4 - 4.8 G/dL AO ADM SS Albumin/Globulin [Mass ratio] 1.0 {ratio} Invalid Interpretation Code 1.1 - 2.5 ratio AO ADM SS ALP [Catalytic activity/Vol] 78 U/L Invalid Interpretation Code 40 - 135 U/L AO ADM SS ALT With P-5'-P [Catalytic activity/Vol] 26 U/L Invalid Interpretation Code 16 - 63 U/L AO ADM SS AST With P-5'-P [Catalytic activity/Vol] 16 U/L Invalid Interpretation Code 10 - 40 U/L AO ADM SS Basophil, Absolute 0.0 103/mcL Invalid Interpretation Code 0.0 - 0.2 10^3/mcL AO Workflow SS Basophils/100 WBC (Bld) 0.4 % Invalid Interpretation Code 0.0 - 2.5 % AO Workflow SS Bilirubin [Mass/Vol] 0.3 mg/dL Invalid Interpretation Code 0.2 - 1.0 mg/dL AO ADM SS Comment on above: Interpretive Data: U se of this assay is not recommended for patients undergoing treatment with eltrombopag due to the potential for falsely elevated results. Calcium [Mass/Vol] 9.9 mg/dL Invalid Interpretation Code 8.4 - 10.2 mg/dL AO ADM SS Chloride [Moles/Vol] 99 mmol/L Invalid Interpretation Code 98 - 107 mmol/L AO ADM SS CO2 [Moles/Vol] 31 mmol/L Invalid Interpretation Code 23 - 31 mmol/L AO ADM SS Creatinine [Mass/Vol] 1.06 mg/dL Invalid Interpretation Code 0.70 - 1.30 mg/dL AO ADM SS Electrolyte Balance 7.0 mEq/L Invalid Interpretation Code 4.0 - 15.0 mEq/L AO ADM SS Eosinophil, Absolute 0.1 103/mcL Invalid Interpretation Code 0.0 - 0.4 10^3/mcL AO Workflow SS Eosinophils/100 WBC (Bld) 0.7 % Invalid Interpretation Code 0.0 - 7.0 % AO Workflow SS Erythrocyte distribution width (RBC) [Ratio] 13.9 % Invalid Interpretation Code 11.5 - 14.5 % AO Workflow SS GFR/1.73 sq M.predicted among blacks MDRD (S/P/Bld) [Vol rate/Area] 83 ml/min/1.73sqm Invalid Interpretation Code AO Chemistry S Comment on above: Interpretive Data: GFR Population mean for , Non- Americans Ages 20-29 = 116 mL/min/1.73 sq.m. Ages 30-39 = 107 mL/min/1.73 sq.m. Ages 40-49 = 99 mL/min/1.73 sq.m. Ages 50-59 = 93 mL/min/1.73 sq.m. Ages 60-69 = 85 mL/min/1.73 sq.m. Ages 70+ = 75 mL/min/1.73 sq.m. Chronic Kidney Disease: Less than 60 mL/min/1.73 square meters End Stage Renal Disease: Less than 15 mL/min/1.73 square meters GFR/1.73 sq M.predicted among non-blacks MDRD (S/P/Bld) [Vol rate/Area] 69 ml/min/1.73sqm Invalid Interpretation Code AO Chemistry S Comment on above: Interpretive Data: GFR Population mean for , Non- Americans Ages 20-29 = 116 mL/min/1.73 sq.m. Ages 30-39 = 107 mL/min/1.73 sq.m. Ages 40-49 = 99 mL/min/1.73 sq.m. Ages 50-59 = 93 mL/min/1.73 sq.m. Ages 60-69 = 85 mL/min/1.73 sq.m. Ages 70+ = 75 mL/min/1.73 sq.m. Chronic Kidney Disease: Less than 60 mL/min/1.73 square meters End Stage Renal Disease: Less than 15 mL/min/1.73 square meters Globulin 3.7 G/dL Invalid Interpretation Code AO ADM SS Glucose [Mass/Vol] 137 mg/dL Invalid Interpretation Code 83 - 110 mg/dL AO ADM SS Hematocrit (Bld) [Volume fraction] 49.1 % Invalid Interpretation Code 42.0 - 52.0 % AO Workflow SS Hemoglobin (Bld) [Mass/Vol] 16.7 G/dL Invalid Interpretation Code 14.0 - 18.0 G/dL AO Workflow SS Lymphocyte, Absolute 2.5 103/mcL Invalid Interpretation Code 0.8 - 3.9 10^3/mcL AO Workflow SS Lymphocytes/100 WBC (Bld) 21.9 % Invalid Interpretation Code 10.0 - 50.0 % AO Workflow SS MCH (RBC) [Entitic mass] 33.1 pg Invalid Interpretation Code 27.0 - 31.2 pg AO Workflow SS MCHC 34.0 G/dL Invalid Interpretation Code 31.8 - 35.4 G/dL AO Workflow SS MCV (RBC) [Entitic vol] 97.3 fL Invalid Interpretation Code 80.0 - 94.0 fL AO Workflow SS Monocyte, Absolute 0.7 103/mcL Invalid Interpretation Code 0.2 - 1.0 10^3/mcL AO Workflow SS Monocytes/100 WBC (Bld) 5.8 % Invalid Interpretation Code 1.7 - 13.0 % AO Workflow SS Neutrophil, Absolute 8.2 103/mcL Invalid Interpretation Code 2.9 - 6.2 10^3/mcL AO Workflow SS Neutrophils/100 WBC (Bld) 71.2 % Invalid Interpretation Code 37.0 - 80.0 % AO Workflow SS Platelet mean volume (Bld) [Entitic vol] 8.8 fL Invalid Interpretation Code 7.4 - 10.4 fL AO Workflow SS Platelets (Bld) [#/Vol] 227 103/mcL Invalid Interpretation Code 130 - 400 10^3/mcL AO Workflow SS Potassium [Moles/Vol] 5.4 mmol/L Invalid Interpretation Code 3.5 - 5.1 mmol/L AO ADM SS Protein [Mass/Vol] 7.4 G/dL Invalid Interpretation Code 6.4 - 8.2 G/dL AO ADM SS RBC (Bld) [#/Vol] 5.04 106/mcL Invalid Interpretation Code 4.04 - 6.13 10^6/mcL AO Workflow SS Sodium [Moles/Vol] 137 mmol/L Invalid Interpretation Code 136 - 145 mmol/L AO ADM SS Urea nitrogen [Mass/Vol] 12 mg/dL Invalid Interpretation Code 7 - 18 mg/dL AO ADM SS Urea nitrogen/Creatinine [Mass ratio] 11 ratio Invalid Interpretation Code 7 - 27 ratio AO ADM SS WBC (Bld) [#/Vol] 11.5 103/mcL Invalid Interpretation Code 4.6 - 10.8 10^3/mcL AO Workflow SS .Auto Diffon 03-28-2023 Basophil, Absolute 0.0 10 3/mcL Normal 0.0-0.2 [facility] [place] Comment on [place]: Performed By: #### C MP, ANEU, ADIFF, CBC, GFR #### [address] [address] Basophils/100 WBC (Bld) 0.3 % Normal 0.0-2.5 [facility] ([place]) Comment on above: Performed By: #### C MP, ANEU, ADIFF, CBC, GFR #### [address] [address] Eosinophil, Absolute 0.1 10 3/mcL Normal 0.0-0.4 [facility] ([place]) Comment on above: Performed By: #### C MP, ANEU, ADIFF, CBC, GFR #### [address] [address] Eosinophils/100 WBC (Bld) 0.8 % Normal 0.0-7.0 [facility] ([place]) Comment on above: Performed By: #### C MP, ANEU, ADIFF, CBC, GFR #### [address] [address] Lymphocyte, Absolute 1.9 10 3/mcL Normal 0.8-3.9 [facility] ([place]) Comment on above: Performed By: #### C MP, ANEU, ADIFF, CBC, GFR #### [address] [address] Lymphocytes/100 WBC (Bld) 20.1 % Normal 10.0-50.0 [facility] ([place]) Comment on above: Performed By: #### C MP, ANEU, ADIFF, CBC, GFR #### [address] [address] Monocyte, Absolute 0.6 10 3/mcL Normal 0.2-1.0 [facility] [place] Comment on above: Performed By: #### C MP, ANEU, ADIFF, CBC, GFR #### [address] [address] Monocytes/100 WBC (Bld) 5.8 % Normal 1.7-13.0 [facility] ([place]) Comment on above: Performed By: #### C MP, ANEU, ADIFF, CBC, GFR #### [address] [address] Neutrophils/100 WBC (Bld) 73.0 % Normal 37.0-80.0 [facility] ([place]) Comment on above: Performed By: #### C MP, ANEU, ADIFF, CBC, GFR #### [address] [address] .GFRon 03-28-2023 GFR 86 ml/min/1.73sqm Normal [facility] ([place]) Comment on above: Result Comment: GFR Population mean for , Non- Americans Ages 20-29 = 116 mL/min/1.73 sq.m. Ages 30-39 = 107 mL/min/1.73 sq.m. Ages 40-49 = 99 mL/min/1.73 sq.m. Ages 50-59 = 93 mL/min/1.73 sq.m. Ages 60-69 = 85 mL/min/1.73 sq.m. Ages 70+ = 75 mL/min/1.73 sq.m. Chronic Kidney Disease: Less than 60 mL/min/1.73 square meters End Stage Renal Disease: Less than 15 mL/min/1.73 square meters Performed By: #### C MP, ANEU, ADIFF, CBC, GFR #### [address] [address] GFR Non- 71 ml/min/1.73sqm Normal [facility] ([place]) Comment on above: Result Comment: GFR Population mean for , Non- Americans Ages 20-29 = 116 mL/min/1.73 sq.m. Ages 30-39 = 107 mL/min/1.73 sq.m. Ages 40-49 = 99 mL/min/1.73 sq.m. Ages 50-59 = 93 mL/min/1.73 sq.m. Ages 60-69 = 85 mL/min/1.73 sq.m. Ages 70+ = 75 mL/min/1.73 sq.m. Chronic Kidney Disease: Less than 60 mL/min/1.73 square meters End Stage Renal Disease: Less than 15 mL/min/1.73 square meters Performed By: #### C MP, ANEU, ADIFF, CBC, GFR #### [address] [address] .NEUABSon 03-28-2023 Neutrophil, Absolute 6.9 10 3/mcL High 2.9-6.2 [facility] ([place]) Comment on above: Performed By: #### C MP, ANEU, ADIFF, CBC, GFR #### [address] [address] CBCon 03-28-2023 Erythrocyte distribution width (RBC) [Ratio] 13.2 % Normal 11.5-14.5 [facility] ([place]) Comment on above: Performed By: #### C MP, ANEU, ADIFF, CBC, GFR #### [address] [address] Hematocrit (Bld) [Volume fraction] 48.9 % Normal 42.0-52.0 [facility] ([place]) Comment on above: Performed By: #### C MP, ANEU, ADIFF, CBC, GFR #### [address] [address] Hgb 16.6 G/dL Normal 14.0-18.0 [facility] ([place]) Comment on above: Performed By: #### C MP, ANEU, ADIFF, CBC, GFR #### [address] [address] MCH (RBC) [Entitic mass] 32.9 pg High 27.0-31.2 [facility] ([place]) Comment on above: Performed By: #### C MP, ANEU, ADIFF, CBC, GFR #### [address] [address] MCHC 34.0 G/dL Normal 31.8-35.4 [facility] ([place]) Comment on above: Performed By: #### C MP, ANEU, ADIFF, CBC, GFR #### [address] [address] MCV (RBC) [Entitic vol] 96.6 fL High 80.0-94.0 [facility] ([place]) Comment on above: Performed By: #### C MP, ANEU, ADIFF, CBC, GFR #### [address] [address] Platelet 209 10 3/mcL Normal 130-400 [facility] ([place]) Comment on above: Performed By: #### C MP, ANEU, ADIFF, CBC, GFR #### [address] [address] Platelet mean volume (Bld) [Entitic vol] 8.8 fL Normal 7.4-10.4 [facility] ([place]) Comment on above: Performed By: #### C MP, ANEU, ADIFF, CBC, GFR #### [address] [address] RBC 5.06 10 6/mcL Normal 4.04-6.13 Count includes the [facility] ([place] Comment on above: Performed By: #### C MP, ANEU, ADIFF, CBC, GFR #### [address] [address] WBC 9.4 10 3/mcL Normal 4.6-10.8 [facility] ([place]) Comment on above: Performed By: #### C MP, ANEU, ADIFF, CBC, GFR #### [address] [address] CMPon 03-28-2023 Albumin Level 3.6 G/dL Normal 3.4-4.8 Count includes the [facility] ([place]) Comment on above: Performed By: #### C MP, ANEU, ADIFF, CBC, GFR #### [address] [address] Albumin/Globulin [Mass ratio] 1.1 {ratio} Normal 1.1-2.5 [facility] ([place]) Comment on above: Performed By: #### C MP, ANEU, ADIFF, CBC, GFR #### [address] [address] ALP [Catalytic activity/Vol] 76 U/L Normal 40-135 [facility] ([place]) Comment on above: Performed By: #### C MP, ANEU, ADIFF, CBC, GFR #### [address] [address] ALT [Catalytic activity/Vol] 31 U/L Normal 16-63 [facility] ([place]) Comment on above: Performed By: #### C MP, ANEU, ADIFF, CBC, GFR #### [address] [address] AST [Catalytic activity/Vol] 21 U/L Normal 10-40 [facility] ([place]) Comment on above: Performed By: #### C MP, ANEU, ADIFF, CBC, GFR #### [address] [address] Bili Total 0.6 mg/dL Normal 0.2-1.0 [facility] ([place]) Comment on above: Result Comment: Use of this assay is not recommended for patients undergoing treatment with eltrombopag due to the potential for falsely elevated results. Performed By: #### C MP, ANEU, ADIFF, CBC, GFR #### [address] [address] BUN/Creatinine Ratio 13 ratio Normal 7-27 [facility] [place] Comment on above: Performed By: #### C MP, ANEU, ADIFF, CBC, GFR #### [address] [address] Calcium [Mass/Vol] 9.9 mg/dL Normal 8.4-10.2 [facility] ([place]) Comment on above: Performed By: #### C MP, ANEU, ADIFF, CBC, GFR #### [address] [address] Chloride [Moles/Vol] 98 mmol/L Normal 98-107 [facility] [place] Comment on above: Performed By: #### C MP, ANEU, ADIFF, CBC, GFR #### [address] [address] CO2 [Moles/Vol] 32 mmol/L High 23-31 [facility] ([place]) Comment on above: Performed By: #### C MP, ANEU, ADIFF, CBC, GFR #### [address] [address] Creatinine [Mass/Vol] 1.03 mg/dL Normal 0.70-1.30 [facility] ([place]) Comment on above: Performed By: #### C MP, ANEU, ADIFF, CBC, GFR #### [address] [address] Electrolyte Balance 6.0 mEq/L Normal 4.0-15.0 [facility] ([place]) Comment on above: Performed By: #### C MP, ANEU, ADIFF, CBC, GFR #### [address] [address] Globulin 3.3 G/dL Normal [facility] ([place]) Comment on above: Performed By: #### C MP, ANEU, ADIFF, CBC, GFR #### [address] [address] Glucose [Mass/Vol] 125 mg/dL High 83-110 [facility] ([place]) Comment on above: Performed By: #### C MP, ANEU, ADIFF, CBC, GFR #### [address] [address] Potassium [Moles/Vol] 5.6 mmol/L High 3.5-5.1 [facility] ([place]) Comment on above: Performed By: #### C MP, ANEU, ADIFF, CBC, GFR #### [address] [address] Sodium [Moles/Vol] 136 mmol/L Normal 136-145 [facility] ([place]) Comment on above: Performed By: #### C MP, ANEU, ADIFF, CBC, GFR #### [address] [address] Total Protein 6.9 G/dL Normal 6.4-8.2 Count includes the [facility] ([place]) Comment on above: Performed By: #### C MP, ANEU, ADIFF, CBC, GFR #### [address] [address] Urea nitrogen [Mass/Vol] 13 mg/dL Normal 7-18 [facility] ([place]) Comment on above: Performed By: #### C MP, ANEU, ADIFF, CBC, GFR #### [address] [address] LABORATORYOrdered By: SYSTEM SYSTEM on 03-28-2023 Albumin BCP dye [Mass/Vol] 3.6 G/dL Invalid Interpretation Code 3.4 - 4.8 G/dL AO ADM SS Albumin/Globulin [Mass ratio] 1.1 {ratio} Invalid Interpretation Code 1.1 - 2.5 ratio AO ADM SS ALP [Catalytic activity/Vol] 76 U/L Invalid Interpretation Code 40 - 135 U/L AO ADM SS ALT With P-5'-P [Catalytic activity/Vol] 31 U/L Invalid Interpretation Code 16 - 63 U/L AO ADM SS AST With P-5'-P [Catalytic activity/Vol] 21 U/L Invalid Interpretation Code 10 - 40 U/L AO ADM SS Bilirubin [Mass/Vol] 0.6 mg/dL Invalid Interpretation Code 0.2 - 1.0 mg/dL AO ADM SS Calcium [Mass/Vol] 9.9 mg/dL Invalid Interpretation Code 8.4 - 10.2 mg/dL AO ADM SS Chloride [Moles/Vol] 98 mmol/L Invalid Interpretation Code 98 - 107 mmol/L AO ADM SS CO2 [Moles/Vol] 32 mmol/L Invalid Interpretation Code 23 - 31 mmol/L AO ADM SS Creatinine [Mass/Vol] 1.03 mg/dL Invalid Interpretation Code 0.70 - 1.30 mg/dL AO ADM SS Electrolyte Balance 6.0 mEq/L Invalid Interpretation Code 4.0 - 15.0 mEq/L AO ADM SS GFR/1.73 sq M.predicted among blacks MDRD (S/P/Bld) [Vol rate/Area] 86 ml/min/1.73sqm Invalid Interpretation Code AO Chemistry S GFR/1.73 sq M.predicted among non-blacks MDRD (S/P/Bld) [Vol rate/Area] 71 ml/min/1.73sqm Invalid Interpretation Code AO Chemistry S Globulin 3.3 G/dL Invalid Interpretation Code AO ADM SS Glucose [Mass/Vol] 125 mg/dL Invalid Interpretation Code 83 - 110 mg/dL AO ADM SS Potassium [Moles/Vol] 5.6 mmol/L Invalid Interpretation Code 3.5 - 5.1 mmol/L AO ADM SS Protein [Mass/Vol] 6.9 G/dL Invalid Interpretation Code 6.4 - 8.2 G/dL AO ADM SS Sodium [Moles/Vol] 136 mmol/L Invalid Interpretation Code 136 - 145 mmol/L AO ADM SS Urea nitrogen [Mass/Vol] 13 mg/dL Invalid Interpretation Code 7 - 18 mg/dL AO ADM SS Urea nitrogen/Creatinine [Mass ratio] 13 ratio Invalid Interpretation Code ratio AO ADM SS LABORATORYOrdered By: Carlos Alberto Morfin on 03-28-2023 Basophil, Absolute 0.0 103/mcL Invalid Interpretation Code 0.0 - 0.2 10^3/mcL AO Workflow SS Basophils/100 WBC (Bld) 0.3 % Invalid Interpretation Code 0.0 - 2.5 % AO Workflow SS Eosinophil, Absolute 0.1 103/mcL Invalid Interpretation Code 0.0 - 0.4 10^3/mcL AO Workflow SS Eosinophils/100 WBC (Bld) 0.8 % Invalid Interpretation Code 0.0 - 7.0 % AO Workflow SS Erythrocyte distribution width (RBC) [Ratio] 13.2 % Invalid Interpretation Code 11.5 - 14.5 % AO Workflow SS Hematocrit (Bld) [Volume fraction] 48.9 % Invalid Interpretation Code 42.0 - 52.0 % AO Workflow SS Hemoglobin (Bld) [Mass/Vol] 16.6 G/dL Invalid Interpretation Code 14.0 - 18.0 G/dL AO Workflow SS Lymphocyte, Absolute 1.9 103/mcL Invalid Interpretation Code 0.8 - 3.9 10^3/mcL AO Workflow SS Lymphocytes/100 WBC (Bld) 20.1 % Invalid Interpretation Code 10.0 - 50.0 % AO Workflow SS MCH (RBC) [Entitic mass] 32.9 pg Invalid Interpretation Code 27.0 - 31.2 pg AO Workflow SS MCHC 34.0 G/dL Invalid Interpretation Code 31.8 - 35.4 G/dL AO Workflow SS MCV (RBC) [Entitic vol] 96.6 fL Invalid Interpretation Code 80.0 - 94.0 fL AO Workflow SS Monocyte, Absolute 0.6 103/mcL Invalid Interpretation Code 0.2 - 1.0 10^3/mcL AO Workflow SS Monocytes/100 WBC (Bld) 5.8 % Invalid Interpretation Code 1.7 - 13.0 % AO Workflow SS Neutrophil, Absolute 6.9 103/mcL Invalid Interpretation Code 2.9 - 6.2 10^3/mcL AO Workflow SS Neutrophils/100 WBC (Bld) 73.0 % Invalid Interpretation Code 37.0 - 80.0 % AO Workflow SS Platelet mean volume (Bld) [Entitic vol] 8.8 fL Invalid Interpretation Code 7.4 - 10.4 fL AO Workflow SS Platelets (Bld) [#/Vol] 209 103/mcL Invalid Interpretation Code 130 - 400 10^3/mcL AO Workflow SS RBC (Bld) [#/Vol] 5.06 106/mcL Invalid Interpretation Code 4.04 - 6.13 10^6/mcL AO Workflow SS WBC (Bld) [#/Vol] 9.4 103/mcL Invalid Interpretation Code 4.6 - 10.8 10^3/mcL AO Workflow SS LABORATORYOrdered By: SYSTEM SYSTEM on 01-03-2023 Albumin BCP dye [Mass/Vol] 3.5 G/dL Invalid Interpretation Code 3.4 - 4.8 G/dL AO ADM SS Albumin/Globulin [Mass ratio] 1.1 {ratio} Invalid Interpretation Code 1.1 - 2.5 ratio AO ADM SS ALP [Catalytic activity/Vol] 74 U/L Invalid Interpretation Code 40 - 135 U/L AO ADM SS ALT With P-5'-P [Catalytic activity/Vol] 27 U/L Invalid Interpretation Code 16 - 63 U/L AO ADM SS AST With P-5'-P [Catalytic activity/Vol] 19 U/L Invalid Interpretation Code 10 - 40 U/L AO ADM SS Bilirubin [Mass/Vol] 0.7 mg/dL Invalid Interpretation Code 0.2 - 1.0 mg/dL AO ADM SS Calcium [Mass/Vol] 9.9 mg/dL Invalid Interpretation Code 8.4 - 10.2 mg/dL AO ADM SS Chloride [Moles/Vol] 100 mmol/L Invalid Interpretation Code 98 - 107 mmol/L AO ADM SS CO2 [Moles/Vol] 34 mmol/L Invalid Interpretation Code 23 - 31 mmol/L AO ADM SS Creatinine [Mass/Vol] 0.95 mg/dL Invalid Interpretation Code 0.70 - 1.30 mg/dL AO ADM SS Electrolyte Balance 5.0 mEq/L Invalid Interpretation Code 4.0 - 15.0 mEq/L AO ADM SS GFR 95 ml/min/1.73sqm Invalid Interpretation Code AO Chemistry S GFR Non- 78 ml/min/1.73sqm Invalid Interpretation Code AO Chemistry S Globulin 3.3 G/dL Invalid Interpretation Code AO ADM SS Glucose [Mass/Vol] 108 mg/dL Invalid Interpretation Code 83 - 110 mg/dL AO ADM SS Potassium [Moles/Vol] 4.6 mmol/L Invalid Interpretation Code 3.5 - 5.1 mmol/L AO ADM SS Protein [Mass/Vol] 6.8 G/dL Invalid Interpretation Code 6.4 - 8.2 G/dL AO ADM SS Sodium [Moles/Vol] 139 mmol/L Invalid Interpretation Code 136 - 145 mmol/L AO ADM SS Urea nitrogen [Mass/Vol] 11 mg/dL Invalid Interpretation Code 7 - 18 mg/dL AO ADM SS Urea nitrogen/Creatinine [Mass ratio] 12 ratio Invalid Interpretation Code 7 - 27 ratio AO ADM SS LABORATORYOrdered By: Sarah Gamboa on 01-03-2023 Basophil, Absolute 0.0 103/mcL Invalid Interpretation Code 0.0 - 0.2 10^3/mcL AO Workflow SS Basophils/100 WBC (Bld) 0.4 % Invalid Interpretation Code 0.0 - 2.5 % AO Workflow SS Eosinophil, Absolute 0.2 103/mcL Invalid Interpretation Code 0.0 - 0.4 10^3/mcL AO Workflow SS Eosinophils/100 WBC (Bld) 1.5 % Invalid Interpretation Code 0.0 - 7.0 % AO Workflow SS Erythrocyte distribution width (RBC) [Ratio] 14.2 % Invalid Interpretation Code 11.5 - 14.5 % AO Workflow SS Hematocrit (Bld) [Volume fraction] 47.3 % Invalid Interpretation Code 42.0 - 52.0 % AO Workflow SS Hemoglobin (Bld) [Mass/Vol] 16.3 G/dL Invalid Interpretation Code 14.0 - 18.0 G/dL AO Workflow SS Lymphocyte, Absolute 2.0 103/mcL Invalid Interpretation Code 0.8 - 3.9 10^3/mcL AO Workflow SS Lymphocytes/100 WBC (Bld) 18.2 % Invalid Interpretation Code 10.0 - 50.0 % AO Workflow SS MCH (RBC) [Entitic mass] 33.1 pg Invalid Interpretation Code 27.0 - 31.2 pg AO Workflow SS MCHC 34.4 G/dL Invalid Interpretation Code 31.8 - 35.4 G/dL AO Workflow SS MCV (RBC) [Entitic vol] 96.4 fL Invalid Interpretation Code 80.0 - 94.0 fL AO Workflow SS Monocyte, Absolute 0.9 103/mcL Invalid Interpretation Code 0.2 - 1.0 10^3/mcL AO Workflow SS Monocytes/100 WBC (Bld) 8.8 % Invalid Interpretation Code 1.7 - 13.0 % AO Workflow SS Neutrophil, Absolute 7.6 103/mcL Invalid Interpretation Code 2.9 - 6.2 10^3/mcL AO Workflow SS Neutrophils/100 WBC (Bld) 71.1 % Invalid Interpretation Code 37.0 - 80.0 % AO Workflow SS Platelet mean volume (Bld) [Entitic vol] 8.7 fL Invalid Interpretation Code 7.4 - 10.4 fL AO Workflow SS Platelets (Bld) [#/Vol] 210 103/mcL Invalid Interpretation Code 130 - 400 10^3/mcL AO Workflow SS RBC (Bld) [#/Vol] 4.91 106/mcL Invalid Interpretation Code 4.04 - 6.13 10^6/mcL AO Workflow SS WBC (Bld) [#/Vol] 10.7 103/mcL Invalid Interpretation Code 4.6 - 10.8 10^3/mcL AO Workflow SS LABORATORYOrdered By: Aspen Whiting on 08-16-2022 Potassium [Moles/Vol] 5.6 mmol/L Invalid Interpretation Code 3.5 - 5.1 mmol/L AO ADM SS LABORATORYOrdered By: Mara Armendariz on 07-19-2022 Potassium [Moles/Vol] 5.9 mmol/L Invalid Interpretation Code 3.5 - 5.1 mmol/L AO ADM SS LABORATORYOrdered By: Aspen Whiting on 07-07-2022 Albumin BCP dye [Mass/Vol] 3.8 G/dL Invalid Interpretation Code 3.4 - 4.8 G/dL AO ADM SS Albumin/Globulin [Mass ratio] 1.2 {ratio} Invalid Interpretation Code 1.1 - 2.5 ratio AO ADM SS ALP [Catalytic activity/Vol] 76 U/L Invalid Interpretation Code 40 - 135 U/L AO ADM SS ALT With P-5'-P [Catalytic activity/Vol] 27 U/L Invalid Interpretation Code 16 - 63 U/L AO ADM SS AST With P-5'-P [Catalytic activity/Vol] 18 U/L Invalid Interpretation Code 10 - 40 U/L AO ADM SS Bilirubin [Mass/Vol] 0.4 mg/dL Invalid Interpretation Code 0.2 - 1.0 mg/dL AO ADM SS Calcium [Mass/Vol] 9.9 mg/dL Invalid Interpretation Code 8.4 - 10.2 mg/dL AO ADM SS Chloride [Moles/Vol] 100 mmol/L Invalid Interpretation Code 98 - 107 mmol/L AO ADM SS CO2 [Moles/Vol] 31 mmol/L Invalid Interpretation Code 23 - 31 mmol/L AO ADM SS Creatinine [Mass/Vol] 1.03 mg/dL Invalid Interpretation Code 0.70 - 1.30 mg/dL AO ADM SS Electrolyte Balance 6.0 mEq/L Invalid Interpretation Code 4.0 - 15.0 mEq/L AO ADM SS Globulin 3.3 G/dL Invalid Interpretation Code AO ADM SS Glucose [Mass/Vol] 79 mg/dL Invalid Interpretation Code 83 - 110 mg/dL AO ADM SS Potassium [Moles/Vol] 5.6 mmol/L Invalid Interpretation Code 3.5 - 5.1 mmol/L AO ADM SS Protein [Mass/Vol] 7.1 G/dL Invalid Interpretation Code 6.4 - 8.2 G/dL AO ADM SS Sodium [Moles/Vol] 137 mmol/L Invalid Interpretation Code 136 - 145 mmol/L AO ADM SS Urea nitrogen [Mass/Vol] 12 mg/dL Invalid Interpretation Code 7 - 18 mg/dL AO ADM SS Urea nitrogen/Creatinine [Mass ratio] 12 ratio Invalid Interpretation Code 7 - 27 ratio AO ADM SS LABORATORYOrdered By: Carlos Alberto Morfin on 07-07-2022 Basophil, Absolute 0.1 103/mcL Invalid Interpretation Code 0.0 - 0.2 10^3/mcL AO Workflow SS Basophils/100 WBC (Bld) 1.0 % Invalid Interpretation Code 0.0 - 2.5 % AO Workflow SS Eosinophil, Absolute 0.1 103/mcL Invalid Interpretation Code 0.0 - 0.4 10^3/mcL AO Workflow SS Eosinophils/100 WBC (Bld) 1.0 % Invalid Interpretation Code 0.0 - 7.0 % AO Workflow SS Erythrocyte distribution width (RBC) [Ratio] 15.0 % Invalid Interpretation Code 11.5 - 14.5 % AO Workflow SS Hematocrit (Bld) [Volume fraction] 47.2 % Invalid Interpretation Code 42.0 - 52.0 % AO Workflow SS Hemoglobin (Bld) [Mass/Vol] 15.9 G/dL Invalid Interpretation Code 14.0 - 18.0 G/dL AO Workflow SS Lymphocyte, Absolute 2.3 103/mcL Invalid Interpretation Code 0.8 - 3.9 10^3/mcL AO Workflow SS Lymphocytes/100 WBC (Bld) 22.7 % Invalid Interpretation Code 10.0 - 50.0 % AO Workflow SS MCH (RBC) [Entitic mass] 33.0 pg Invalid Interpretation Code 27.0 - 31.2 pg AO Workflow SS MCHC 33.8 G/dL Invalid Interpretation Code 31.8 - 35.4 G/dL AO Workflow SS MCV (RBC) [Entitic vol] 97.6 fL Invalid Interpretation Code 80.0 - 94.0 fL AO Workflow SS Monocyte, Absolute 0.8 103/mcL Invalid Interpretation Code 0.2 - 1.0 10^3/mcL AO Workflow SS Monocytes/100 WBC (Bld) 7.8 % Invalid Interpretation Code 1.7 - 13.0 % AO Workflow SS Neutrophil, Absolute 7.0 103/mcL Invalid Interpretation Code 2.9 - 6.2 10^3/mcL AO Workflow SS Neutrophils/100 WBC (Bld) 67.5 % Invalid Interpretation Code 37.0 - 80.0 % AO Workflow SS Platelet mean volume (Bld) [Entitic vol] 8.2 fL Invalid Interpretation Code 7.4 - 10.4 fL AO Workflow SS Platelets (Bld) [#/Vol] 196 103/mcL Invalid Interpretation Code 130 - 400 10^3/mcL AO Workflow SS RBC (Bld) [#/Vol] 4.83 106/mcL Invalid Interpretation Code 4.04 - 6.13 10^6/mcL AO Workflow SS WBC (Bld) [#/Vol] 10.3 103/mcL Invalid Interpretation Code 4.6 - 10.8 10^3/mcL AO Workflow SS LABORATORYOrdered By: SYSTEM SYSTEM on 07-07-2022 GFR 87 ml/min/1.73sqm Invalid Interpretation Code AO Chemistry S GFR Non- 71 ml/min/1.73sqm Invalid Interpretation Code AO Chemistry S LABORATORYOrdered By: Aspen Whiting on 04-19-2022 Albumin BCP dye [Mass/Vol] 3.6 G/dL Invalid Interpretation Code 3.4 - 4.8 G/dL AO ADM SS Albumin/Globulin [Mass ratio] 1.1 {ratio} Invalid Interpretation Code 1.1 - 2.5 ratio AO ADM SS ALP [Catalytic activity/Vol] 84 U/L Invalid Interpretation Code 40 - 135 U/L AO ADM SS ALT With P-5'-P [Catalytic activity/Vol] 27 U/L Invalid Interpretation Code 16 - 63 U/L AO ADM SS AST With P-5'-P [Catalytic activity/Vol] 10 U/L Invalid Interpretation Code 10 - 40 U/L AO ADM SS Bilirubin [Mass/Vol] 0.5 mg/dL Invalid Interpretation Code 0.2 - 1.0 mg/dL AO ADM SS Calcium [Mass/Vol] 9.8 mg/dL Invalid Interpretation Code 8.4 - 10.2 mg/dL AO ADM SS Chloride [Moles/Vol] 101 mmol/L Invalid Interpretation Code 98 - 107 mmol/L AO ADM SS CO2 [Moles/Vol] 30 mmol/L Invalid Interpretation Code 23 - 31 mmol/L AO ADM SS Creatinine [Mass/Vol] 1.25 mg/dL Invalid Interpretation Code 0.70 - 1.30 mg/dL AO ADM SS Electrolyte Balance 6.0 mEq/L Invalid Interpretation Code 4.0 - 15.0 mEq/L AO ADM SS Globulin 3.4 G/dL Invalid Interpretation Code AO ADM SS Glucose [Mass/Vol] 150 mg/dL Invalid Interpretation Code 83 - 110 mg/dL AO ADM SS Potassium [Moles/Vol] 4.3 mmol/L Invalid Interpretation Code 3.5 - 5.1 mmol/L AO ADM SS Protein [Mass/Vol] 7.0 G/dL Invalid Interpretation Code 6.4 - 8.2 G/dL AO ADM SS Sodium [Moles/Vol] 137 mmol/L Invalid Interpretation Code 136 - 145 mmol/L AO ADM SS Urea nitrogen [Mass/Vol] 13 mg/dL Invalid Interpretation Code 7 - 18 mg/dL AO ADM SS Urea nitrogen/Creatinine [Mass ratio] 10 ratio Invalid Interpretation Code 7 - 27 ratio AO ADM SS LABORATORYOrdered By: Mara Armendariz on 04-19-2022 Basophil, Absolute 0.1 103/mcL Invalid Interpretation Code 0.0 - 0.2 10^3/mcL AO Workflow SS Basophils/100 WBC (Bld) 0.5 % Invalid Interpretation Code 0.0 - 2.5 % AO Workflow SS Eosinophil, Absolute 0.1 103/mcL Invalid Interpretation Code 0.0 - 0.4 10^3/mcL AO Workflow SS Eosinophils/100 WBC (Bld) 1.1 % Invalid Interpretation Code 0.0 - 7.0 % AO Workflow SS Erythrocyte distribution width (RBC) [Ratio] 14.7 % Invalid Interpretation Code 11.5 - 14.5 % AO Workflow SS Hematocrit (Bld) [Volume fraction] 45.4 % Invalid Interpretation Code 42.0 - 52.0 % AO Workflow SS Hemoglobin (Bld) [Mass/Vol] 15.6 G/dL Invalid Interpretation Code 14.0 - 18.0 G/dL AO Workflow SS Lymphocyte, Absolute 1.7 103/mcL Invalid Interpretation Code 0.8 - 3.9 10^3/mcL AO Workflow SS Lymphocytes/100 WBC (Bld) 15.6 % Invalid Interpretation Code 10.0 - 50.0 % AO Workflow SS MCH (RBC) [Entitic mass] 32.5 pg Invalid Interpretation Code 27.0 - 31.2 pg AO Workflow SS MCHC 34.4 G/dL Invalid Interpretation Code 31.8 - 35.4 G/dL AO Workflow SS MCV (RBC) [Entitic vol] 94.4 fL Invalid Interpretation Code 80.0 - 94.0 fL AO Workflow SS Monocyte, Absolute 0.8 103/mcL Invalid Interpretation Code 0.2 - 1.0 10^3/mcL AO Workflow SS Monocytes/100 WBC (Bld) 7.5 % Invalid Interpretation Code 1.7 - 13.0 % AO Workflow SS Neutrophil, Absolute 8.1 103/mcL Invalid Interpretation Code 2.9 - 6.2 10^3/mcL AO Workflow SS Neutrophils/100 WBC (Bld) 75.3 % Invalid Interpretation Code 37.0 - 80.0 % AO Workflow SS Platelet mean volume (Bld) [Entitic vol] 8.0 fL Invalid Interpretation Code 7.4 - 10.4 fL AO Workflow SS Platelets (Bld) [#/Vol] 247 103/mcL Invalid Interpretation Code 130 - 400 10^3/mcL AO Workflow SS RBC (Bld) [#/Vol] 4.81 106/mcL Invalid Interpretation Code 4.04 - 6.13 10^6/mcL AO Workflow SS WBC 10.8 103/mcL Invalid Interpretation Code 4.6 - 10.8 10^3/mcL AO Workflow SS LABORATORYOrdered By: SYSTEM SYSTEM on 04-19-2022 GFR 69 ml/min/1.73sqm Invalid Interpretation Code AO Chemistry S GFR Non- 57 ml/min/1.73sqm Invalid Interpretation Code AO Chemistry S Monocyte distribution width Auto (Bld) [Entitic vol] Not Performed 1 *NA* (04/19/22 10:16 AM) Invalid Interpretation Code 0.00 - 20.00 AO Hematology S Comment on above: Result Comment: MDW testing performed only on adult ER patients between the ages of 18-89 years. LABORATORYOrdered By: J Luis Irvin on 02-08-2022 Albumin DL <= 20 mg/L (U) [Mass/Vol] 9215 mcg/dL Invalid Interpretation Code AO ADM SS Albumin/Creatinine DL <= 20 mg/L (U) [Mass ratio] 75 mcg/mg Invalid Interpretation Code 0 - 30 mcg/mg AO ADM SS Creatinine (U) [Mass/Vol] 123.6 mg/dL Invalid Interpretation Code 39.0 - 259.0 mg/dL AO ADM SS Calcium [Mass/Vol] 10.0 mg/dL Invalid Interpretation Code 8.4 - 10.2 mg/dL AO ADM SS Chloride [Moles/Vol] 99 mmol/L Invalid Interpretation Code 98 - 107 mmol/L AO ADM SS CO2 [Moles/Vol] 30 mmol/L Invalid Interpretation Code 23 - 31 mmol/L AO ADM SS Creatinine [Mass/Vol] 1.11 mg/dL Invalid Interpretation Code 0.70 - 1.30 mg/dL AO ADM SS Electrolyte Balance 7.0 mEq/L Invalid Interpretation Code 4.0 - 15.0 mEq/L AO ADM SS Glucose [Mass/Vol] 172 mg/dL Invalid Interpretation Code 83 - 110 mg/dL AO ADM SS Potassium [Moles/Vol] 5.1 mmol/L Invalid Interpretation Code 3.5 - 5.1 mmol/L AO ADM SS Sodium [Moles/Vol] 136 mmol/L Invalid Interpretation Code 136 - 145 mmol/L AO ADM SS Urea nitrogen [Mass/Vol] 16 mg/dL Invalid Interpretation Code 7 - 18 mg/dL AO ADM SS Urea nitrogen/Creatinine [Mass ratio] 14 ratio Invalid Interpretation Code 7 - 27 ratio AO ADM SS LABORATORYOrdered By: SYSTEM SYSTEM on 02-08-2022 GFR 79 ml/min/1.73sqm Invalid Interpretation Code AO Chemistry S GFR Non- 65 ml/min/1.73sqm Invalid Interpretation Code AO Chemistry S LABORATORYOrdered By: J Luis Irvin on 01-20-2022 Albumin DL <= 20 mg/L (U) [Mass/Vol] 38983 mcg/dL Invalid Interpretation Code AO ADM SS Albumin/Creatinine DL <= 20 mg/L (U) [Mass ratio] 106 mcg/mg Invalid Interpretation Code 0 - 30 mcg/mg AO ADM SS Creatinine (U) [Mass/Vol] 124.0 mg/dL Invalid Interpretation Code 39.0 - 259.0 mg/dL AO ADM SS Albumin BCP dye [Mass/Vol] 3.2 G/dL Invalid Interpretation Code 3.4 - 4.8 G/dL AO ADM SS Albumin/Globulin [Mass ratio] 0.9 {ratio} Invalid Interpretation Code 1.1 - 2.5 ratio AO ADM SS ALP [Catalytic activity/Vol] 82 U/L Invalid Interpretation Code 40 - 135 U/L AO ADM SS ALT With P-5'-P [Catalytic activity/Vol] 27 U/L Invalid Interpretation Code 16 - 63 U/L AO ADM SS AST With P-5'-P [Catalytic activity/Vol] 21 U/L Invalid Interpretation Code 10 - 40 U/L AO ADM SS Bilirubin [Mass/Vol] 0.7 mg/dL Invalid Interpretation Code 0.2 - 1.0 mg/dL AO ADM SS Calcium [Mass/Vol] 10.0 mg/dL Invalid Interpretation Code 8.4 - 10.2 mg/dL AO ADM SS Chloride [Moles/Vol] 103 mmol/L Invalid Interpretation Code 98 - 107 mmol/L AO ADM SS CO2 [Moles/Vol] 30 mmol/L Invalid Interpretation Code 23 - 31 mmol/L AO ADM SS Creatinine [Mass/Vol] 1.13 mg/dL Invalid Interpretation Code 0.70 - 1.30 mg/dL AO ADM SS Electrolyte Balance 7.0 mEq/L Invalid Interpretation Code 4.0 - 15.0 mEq/L AO ADM SS Globulin 3.5 G/dL Invalid Interpretation Code AO ADM SS Glucose [Mass/Vol] 248 mg/dL Invalid Interpretation Code 83 - 110 mg/dL AO ADM SS Potassium [Moles/Vol] 5.5 mmol/L Invalid Interpretation Code 3.5 - 5.1 mmol/L AO ADM SS Protein [Mass/Vol] 6.7 G/dL Invalid Interpretation Code 6.4 - 8.2 G/dL AO ADM SS Sodium [Moles/Vol] 140 mmol/L Invalid Interpretation Code 136 - 145 mmol/L AO ADM SS Urea nitrogen [Mass/Vol] 7 mg/dL Invalid Interpretation Code 7 - 18 mg/dL AO ADM SS Urea nitrogen/Creatinine [Mass ratio] 6 ratio Invalid Interpretation Code 7 - 27 ratio AO ADM SS LABORATORYOrdered By: Mara Armendariz on 01-20-2022 Basophil, Absolute 0.10 103/mcL Invalid Interpretation Code 0.00 - 0.19 10^3/mcL AO Auto Heme SS Basophils/100 WBC (Bld) 0.7 % Invalid Interpretation Code 0.0 - 2.5 % AO Auto Heme SS Cholesterol [Mass/Vol] 138 mg/dL Invalid Interpretation Code 0 - 200 mg/dL AO ADM SS Cholesterol in HDL [Mass/Vol] 41 mg/dL Invalid Interpretation Code 40 - 60 mg/dL AO ADM SS Cholesterol in LDL [Mass/Vol] 64 mg/dL Invalid Interpretation Code 0 - 130 mg/dL AO ADM SS Eosinophil, Absolute 0.20 103/mcL Invalid Interpretation Code 0.00 - 0.40 10^3/mcL AO Auto Heme SS Eosinophils/100 WBC (Bld) 2.5 % Invalid Interpretation Code 0.0 - 7.0 % AO Auto Heme SS Erythrocyte distribution width (RBC) [Ratio] 14.5 % Invalid Interpretation Code 11.5 - 14.5 % AO Auto Heme SS Hematocrit (Bld) [Volume fraction] 42.9 % Invalid Interpretation Code 42.0 - 52.0 % AO Auto Heme SS Hemoglobin (Bld) [Mass/Vol] 14.8 G/dL Invalid Interpretation Code 14.0 - 18.0 G/dL AO Auto Heme SS Lymphocyte, Absolute 1.90 103/mcL Invalid Interpretation Code 0.77 - 3.85 10^3/mcL AO Auto Heme SS Lymphocytes/100 WBC (Bld) 23.2 % Invalid Interpretation Code 10.0 - 50.0 % AO Auto Heme SS MCH (RBC) [Entitic mass] 32.9 pg Invalid Interpretation Code 27.0 - 31.2 pg AO Auto Heme SS MCHC (RBC) [Mass/Vol] 34.5 G/dL Invalid Interpretation Code 31.8 - 35.4 G/dL AO Auto Heme SS MCV (RBC) [Entitic vol] 95.4 fL Invalid Interpretation Code 80.0 - 94.0 fL AO Auto Heme SS Monocyte, Absolute 0.80 103/mcL Invalid Interpretation Code 0.15 - 1.00 10^3/mcL AO Auto Heme SS Monocytes/100 WBC (Bld) 9.4 % Invalid Interpretation Code 1.7 - 13.0 % AO Auto Heme SS Neutrophil, Absolute 5.40 103/mcL Invalid Interpretation Code 2.85 - 6.16 10^3/mcL AO Auto Heme SS Neutrophils/100 WBC (Bld) 64.2 % Invalid Interpretation Code 37.0 - 80.0 % AO Auto Heme SS Platelet mean volume (Bld) [Entitic vol] 8.7 fL Invalid Interpretation Code 7.4 - 10.4 fL AO Auto Heme SS Platelets (Bld) [#/Vol] 230 103/mcL Invalid Interpretation Code 130 - 400 10^3/mcL AO Auto Heme SS Prostate specific Ag [Mass/Vol] 0.57 ng/mL Invalid Interpretation Code 0.00 - 4.00 ng/mL AO ADM SS RBC (Bld) [#/Vol] 4.49 106/mcL Invalid Interpretation Code 4.04 - 6.13 10^6/mcL AO Auto Heme SS Triglyceride [Mass/Vol] 165 mg/dL Invalid Interpretation Code 0 - 150 mg/dL AO ADM SS WBC (Bld) [#/Vol] 8.30 103/mcL Invalid Interpretation Code 4.60 - 10.80 10^3/mcL AO Auto Heme SS LABORATORYOrdered By: SYSTEM SYSTEM on 01-20-2022 GFR 78 ml/min/1.73sqm Invalid Interpretation Code AO Chemistry S GFR Non- 64 ml/min/1.73sqm Invalid Interpretation Code AO Chemistry S LABORATORYOrdered By: Carlos Alberto Morfin on 11-24-2021 Albumin BCP dye [Mass/Vol] 3.4 G/dL Invalid Interpretation Code 3.4 - 4.8 G/dL AO ADM SS Albumin/Globulin [Mass ratio] 1.0 {ratio} Invalid Interpretation Code 1.1 - 2.5 ratio AO ADM SS ALP [Catalytic activity/Vol] 84 U/L Invalid Interpretation Code 40 - 135 U/L AO ADM SS ALT With P-5'-P [Catalytic activity/Vol] 29 U/L Invalid Interpretation Code 16 - 63 U/L AO ADM SS AST With P-5'-P [Catalytic activity/Vol] 19 U/L Invalid Interpretation Code 10 - 40 U/L AO ADM SS Bilirubin [Mass/Vol] 0.5 mg/dL Invalid Interpretation Code 0.2 - 1.0 mg/dL AO ADM SS Calcium [Mass/Vol] 10.0 mg/dL Invalid Interpretation Code 8.4 - 10.2 mg/dL AO ADM SS Chloride [Moles/Vol] 102 mmol/L Invalid Interpretation Code 98 - 107 mmol/L AO ADM SS CO2 [Moles/Vol] 32 mmol/L Invalid Interpretation Code 23 - 31 mmol/L AO ADM SS Creatinine [Mass/Vol] 1.11 mg/dL Invalid Interpretation Code 0.70 - 1.30 mg/dL AO ADM SS Electrolyte Balance 6.0 mEq/L Invalid Interpretation Code 4.0 - 15.0 mEq/L AO ADM SS Globulin 3.4 G/dL Invalid Interpretation Code AO ADM SS Glucose [Mass/Vol] 224 mg/dL Invalid Interpretation Code 83 - 110 mg/dL AO ADM SS Potassium [Moles/Vol] 4.8 mmol/L Invalid Interpretation Code 3.5 - 5.1 mmol/L AO ADM SS Protein [Mass/Vol] 6.8 G/dL Invalid Interpretation Code 6.4 - 8.2 G/dL AO ADM SS Sodium [Moles/Vol] 140 mmol/L Invalid Interpretation Code 136 - 145 mmol/L AO ADM SS Urea nitrogen [Mass/Vol] 11 mg/dL Invalid Interpretation Code 7 - 18 mg/dL AO ADM SS Urea nitrogen/Creatinine [Mass ratio] 10 ratio Invalid Interpretation Code 7 - 27 ratio AO ADM SS LABORATORYOrdered By: Chelsey Pace on 11-24-2021 Basophil, Absolute 0.00 103/mcL Invalid Interpretation Code 0.00 - 0.19 10^3/mcL AO Auto Heme SS Basophils/100 WBC (Bld) 0.4 % Invalid Interpretation Code 0.0 - 2.5 % AO Auto Heme SS Eosinophil, Absolute 0.20 103/mcL Invalid Interpretation Code 0.00 - 0.40 10^3/mcL AO Auto Heme SS Eosinophils/100 WBC (Bld) 1.5 % Invalid Interpretation Code 0.0 - 7.0 % AO Auto Heme SS Erythrocyte distribution width (RBC) [Ratio] 14.4 % Invalid Interpretation Code 11.5 - 14.5 % AO Auto Heme SS Hematocrit (Bld) [Volume fraction] 44.7 % Invalid Interpretation Code 42.0 - 52.0 % AO Auto Heme SS Hemoglobin (Bld) [Mass/Vol] 15.1 G/dL Invalid Interpretation Code 14.0 - 18.0 G/dL AO Auto Heme SS Lymphocyte, Absolute 3.30 103/mcL Invalid Interpretation Code 0.77 - 3.85 10^3/mcL AO Auto Heme SS Lymphocytes/100 WBC (Bld) 26.2 % Invalid Interpretation Code 10.0 - 50.0 % AO Auto Heme SS MCH (RBC) [Entitic mass] 31.8 pg Invalid Interpretation Code 27.0 - 31.2 pg AO Auto Heme SS MCHC (RBC) [Mass/Vol] 33.8 G/dL Invalid Interpretation Code 31.8 - 35.4 G/dL AO Auto Heme SS MCV (RBC) [Entitic vol] 93.9 fL Invalid Interpretation Code 80.0 - 94.0 fL AO Auto Heme SS Monocyte, Absolute 1.00 103/mcL Invalid Interpretation Code 0.15 - 1.00 10^3/mcL AO Auto Heme SS Monocytes/100 WBC (Bld) 8.2 % Invalid Interpretation Code 1.7 - 13.0 % AO Auto Heme SS Neutrophil, Absolute 8.10 103/mcL Invalid Interpretation Code 2.85 - 6.16 10^3/mcL AO Auto Heme SS Neutrophils/100 WBC (Bld) 63.7 % Invalid Interpretation Code 37.0 - 80.0 % AO Auto Heme SS Platelet mean volume (Bld) [Entitic vol] 8.2 fL Invalid Interpretation Code 7.4 - 10.4 fL AO Auto Heme SS Platelets (Bld) [#/Vol] 260 103/mcL Invalid Interpretation Code 130 - 400 10^3/mcL AO Auto Heme SS RBC (Bld) [#/Vol] 4.76 106/mcL Invalid Interpretation Code 4.04 - 6.13 10^6/mcL AO Auto Heme SS WBC (Bld) [#/Vol] 12.70 103/mcL Invalid Interpretation Code 4.60 - 10.80 10^3/mcL AO Auto Heme SS LABORATORYOrdered By: SYSTEM SYSTEM on 11-24-2021 GFR 79 ml/min/1.73sqm Invalid Interpretation Code AO Chemistry S GFR Non- 65 ml/min/1.73sqm Invalid Interpretation Code AO Chemistry S LABORATORYOrdered By: J Luis Irvin on 09-21-2021 Albumin BCP dye [Mass/Vol] 3.4 G/dL Invalid Interpretation Code 3.4 - 4.8 G/dL AO ADM SS Albumin/Globulin [Mass ratio] 1.0 {ratio} Invalid Interpretation Code 1.1 - 2.5 ratio AO ADM SS ALP [Catalytic activity/Vol] 82 U/L Invalid Interpretation Code 40 - 135 U/L AO ADM SS ALT With P-5'-P [Catalytic activity/Vol] 25 U/L Invalid Interpretation Code 16 - 63 U/L AO ADM SS AST With P-5'-P [Catalytic activity/Vol] 15 U/L Invalid Interpretation Code 10 - 40 U/L AO ADM SS Bilirubin [Mass/Vol] 0.3 mg/dL Invalid Interpretation Code 0.2 - 1.0 mg/dL AO ADM SS Calcium [Mass/Vol] 9.9 mg/dL Invalid Interpretation Code 8.4 - 10.2 mg/dL AO ADM SS Chloride [Moles/Vol] 98 mmol/L Invalid Interpretation Code 98 - 107 mmol/L AO ADM SS CO2 [Moles/Vol] 33 mmol/L Invalid Interpretation Code 23 - 31 mmol/L AO ADM SS Creatinine [Mass/Vol] 1.07 mg/dL Invalid Interpretation Code 0.70 - 1.30 mg/dL AO ADM SS Electrolyte Balance 8.0 mEq/L Invalid Interpretation Code AO ADM SS Globulin 3.4 G/dL Invalid Interpretation Code AO ADM SS Glucose [Mass/Vol] 226 mg/dL Invalid Interpretation Code 80 - 115 mg/dL AO ADM SS Potassium [Moles/Vol] 4.8 mmol/L Invalid Interpretation Code 3.5 - 5.1 mmol/L AO ADM SS Protein [Mass/Vol] 6.8 G/dL Invalid Interpretation Code 6.4 - 8.2 G/dL AO ADM SS Sodium [Moles/Vol] 139 mmol/L Invalid Interpretation Code 136 - 145 mmol/L AO ADM SS Urea nitrogen [Mass/Vol] 14 mg/dL Invalid Interpretation Code 7 - 18 mg/dL AO ADM SS Urea nitrogen/Creatinine [Mass ratio] 13 ratio Invalid Interpretation Code 7 - 27 ratio AO ADM SS LABORATORYOrdered By: Mara Armendariz on 09-21-2021 Basophil, Absolute 0.00 103/mcL Invalid Interpretation Code 0.00 - 0.19 10^3/mcL AO Auto Heme SS Basophils/100 WBC (Bld) 0.3 % Invalid Interpretation Code 0.0 - 2.5 % AO Auto Heme SS Eosinophil, Absolute 0.10 103/mcL Invalid Interpretation Code 0.00 - 0.40 10^3/mcL AO Auto Heme SS Eosinophils/100 WBC (Bld) 0.6 % Invalid Interpretation Code 0.0 - 7.0 % AO Auto Heme SS Erythrocyte distribution width (RBC) [Ratio] 14.1 % Invalid Interpretation Code 11.5 - 14.5 % AO Auto Heme SS Hematocrit (Bld) [Volume fraction] 43.6 % Invalid Interpretation Code 42.0 - 52.0 % AO Auto Heme SS Hemoglobin (Bld) [Mass/Vol] 14.6 G/dL Invalid Interpretation Code 14.0 - 18.0 G/dL AO Auto Heme SS Lymphocyte, Absolute 1.80 103/mcL Invalid Interpretation Code 0.77 - 3.85 10^3/mcL AO Auto Heme SS Lymphocytes/100 WBC (Bld) 15.3 % Invalid Interpretation Code 10.0 - 50.0 % AO Auto Heme SS MCH (RBC) [Entitic mass] 32.5 pg Invalid Interpretation Code 27.0 - 31.2 pg AO Auto Heme SS MCHC (RBC) [Mass/Vol] 33.5 G/dL Invalid Interpretation Code 31.8 - 35.4 G/dL AO Auto Heme SS MCV (RBC) [Entitic vol] 97.1 fL Invalid Interpretation Code 80.0 - 94.0 fL AO Auto Heme SS Monocyte, Absolute 0.50 103/mcL Invalid Interpretation Code 0.15 - 1.00 10^3/mcL AO Auto Heme SS Monocytes/100 WBC (Bld) 4.0 % Invalid Interpretation Code 1.7 - 13.0 % AO Auto Heme SS Neutrophil, Absolute 9.40 103/mcL Invalid Interpretation Code 2.85 - 6.16 10^3/mcL AO Auto Heme SS Neutrophils/100 WBC (Bld) 79.8 % Invalid Interpretation Code 37.0 - 80.0 % AO Auto Heme SS Platelet mean volume (Bld) [Entitic vol] 8.3 fL Invalid Interpretation Code 7.4 - 10.4 fL AO Auto Heme SS Platelets (Bld) [#/Vol] 239 103/mcL Invalid Interpretation Code 130 - 400 10^3/mcL AO Auto Heme SS RBC (Bld) [#/Vol] 4.49 106/mcL Invalid Interpretation Code 4.04 - 6.13 10^6/mcL AO Auto Heme SS WBC (Bld) [#/Vol] 11.80 103/mcL Invalid Interpretation Code 4.60 - 10.80 10^3/mcL AO Auto Heme SS LABORATORYOrdered By: SYSTEM SYSTEM on 09-21-2021 GFR 83 ml/min/1.73sqm Invalid Interpretation Code AO Chemistry S GFR Non- 69 ml/min/1.73sqm Invalid Interpretation Code AO Chemistry S LABORATORYOrdered By: Minerva Villarreal on 09-08-2021 Blood Glucose Testing Reason Routine (09/08/21 11:48 AM) [facility] Glucose [Mass/Vol] 120 mg/dL Invalid Interpretation Code 82 - 115 mg/dL [facility] Glucose [Mass/Vol] 100 mg/dL Invalid Interpretation Code 82 - 115 mg/dL [facility] LABORATORYOrdered By: Apple Connor on 09-08-2021 Basophil, Absolute 0.10 103/mcL Invalid Interpretation Code 0.00 - 0.19 10^3/mcL AO Auto Heme SS Basophils/100 WBC (Bld) 0.6 % Invalid Interpretation Code 0.0 - 2.5 % AO Auto Heme SS Calcium [Mass/Vol] 9.5 mg/dL Invalid Interpretation Code 8.4 - 10.2 mg/dL AO ADM SS Chloride [Moles/Vol] 101 mmol/L Invalid Interpretation Code 98 - 107 mmol/L AO ADM SS CO2 [Moles/Vol] 29 mmol/L Invalid Interpretation Code 23 - 31 mmol/L AO ADM SS Creatinine [Mass/Vol] 1.16 mg/dL Invalid Interpretation Code 0.70 - 1.30 mg/dL AO ADM SS Electrolyte Balance 9.0 mEq/L Invalid Interpretation Code AO ADM SS Eosinophil, Absolute 0.20 103/mcL Invalid Interpretation Code 0.00 - 0.40 10^3/mcL AO Auto Heme SS Eosinophils/100 WBC (Bld) 1.6 % Invalid Interpretation Code 0.0 - 7.0 % AO Auto Heme SS Erythrocyte distribution width (RBC) [Ratio] 14.2 % Invalid Interpretation Code 11.5 - 14.5 % AO Auto Heme SS Glucose [Mass/Vol] 109 mg/dL Invalid Interpretation Code 80 - 115 mg/dL AO ADM SS Hematocrit (Bld) [Volume fraction] 43.4 % Invalid Interpretation Code 42.0 - 52.0 % AO Auto Heme SS Hemoglobin (Bld) [Mass/Vol] 14.5 G/dL Invalid Interpretation Code 14.0 - 18.0 G/dL AO Auto Heme SS INR Coag (PPP) [Relative time] 2.1 {INR} Invalid Interpretation Code 0.9 - 1.2 ratio AO Coag SS Lymphocyte, Absolute 2.70 103/mcL Invalid Interpretation Code 0.77 - 3.85 10^3/mcL AO Auto Heme SS Lymphocytes/100 WBC (Bld) 28.6 % Invalid Interpretation Code 10.0 - 50.0 % AO Auto Heme SS Magnesium [Mass/Vol] 1.9 mg/dL Invalid Interpretation Code 1.8 - 2.4 mg/dL AO ADM SS MCH (RBC) [Entitic mass] 32.9 pg Invalid Interpretation Code 27.0 - 31.2 pg AO Auto Heme SS MCHC (RBC) [Mass/Vol] 33.3 G/dL Invalid Interpretation Code 31.8 - 35.4 G/dL AO Auto Heme SS MCV (RBC) [Entitic vol] 98.6 fL Invalid Interpretation Code 80.0 - 94.0 fL AO Auto Heme SS Monocyte, Absolute 0.80 103/mcL Invalid Interpretation Code 0.15 - 1.00 10^3/mcL AO Auto Heme SS Monocytes/100 WBC (Bld) 8.6 % Invalid Interpretation Code 1.7 - 13.0 % AO Auto Heme SS Neutrophil, Absolute 5.80 103/mcL Invalid Interpretation Code 2.85 - 6.16 10^3/mcL AO Auto Heme SS Neutrophils/100 WBC (Bld) 60.6 % Invalid Interpretation Code 37.0 - 80.0 % AO Auto Heme SS Platelet mean volume (Bld) [Entitic vol] 8.7 fL Invalid Interpretation Code 7.4 - 10.4 fL AO Auto Heme SS Platelets (Bld) [#/Vol] 205 103/mcL Invalid Interpretation Code 130 - 400 10^3/mcL AO Auto Heme SS Potassium [Moles/Vol] 4.8 mmol/L Invalid Interpretation Code 3.5 - 5.1 mmol/L AO ADM SS PT Coag (PPP) [Time] 23.6 s Invalid Interpretation Code 9.7 - 14.3 seconds AO Coag SS RBC (Bld) [#/Vol] 4.40 106/mcL Invalid Interpretation Code 4.04 - 6.13 10^6/mcL AO Auto Heme SS Sodium [Moles/Vol] 139 mmol/L Invalid Interpretation Code 136 - 145 mmol/L AO ADM SS Troponin I.cardiac DL <= 0.01 ng/mL [Mass/Vol] 4.8 ng/L Invalid Interpretation Code 0.0 - 76.2 ng/L AO ADM SS TSH Qn 1.02 m[IU]/L Invalid Interpretation Code 0.36 - 3.74 mcIU/mL AO ADM SS Urea nitrogen [Mass/Vol] 20 mg/dL Invalid Interpretation Code 7 - 18 mg/dL AO ADM SS Urea nitrogen/Creatinine [Mass ratio] 17 ratio Invalid Interpretation Code 7 - 27 ratio AO ADM SS WBC (Bld) [#/Vol] 9.60 103/mcL Invalid Interpretation Code 4.60 - 10.80 10^3/mcL AO Auto Heme SS LABORATORYOrdered By: SYSTEM SYSTEM on 09-08-2021 GFR 76 ml/min/1.73sqm Invalid Interpretation Code AO Chemistry S GFR Non- 62 ml/min/1.73sqm Invalid Interpretation Code AO Chemistry S LABORATORYOrdered By: Nguyen Rao on 09-08-2021 Glucose [Mass/Vol] 100 mg/dL Invalid Interpretation Code 82 - 115 mg/dL [facility] LABORATORYOrdered By: Santy Emerson on 09-08-2021 Blood Glucose Testing Reason Routine (09/08/21 2:25 AM) [facility] LABORATORYOrdered By: Gale Kelsey on 09-07-2021 Blood Glucose Testing Reason Routine (09/07/21 9:41 PM) [facility] LABORATORYOrdered By: Carlos Alberto Morfin on 09-07-2021 Basophil, Absolute 0.10 103/mcL Invalid Interpretation Code 0.00 - 0.19 10^3/mcL AO Auto Heme SS Basophils/100 WBC (Bld) 0.8 % Invalid Interpretation Code 0.0 - 2.5 % AO Auto Heme SS Eosinophil, Absolute 0.10 103/mcL Invalid Interpretation Code 0.00 - 0.40 10^3/mcL AO Auto Heme SS Eosinophils/100 WBC (Bld) 0.5 % Invalid Interpretation Code 0.0 - 7.0 % AO Auto Heme SS Erythrocyte distribution width (RBC) [Ratio] 14.4 % Invalid Interpretation Code 11.5 - 14.5 % AO Auto Heme SS Hematocrit (Bld) [Volume fraction] 46.3 % Invalid Interpretation Code 42.0 - 52.0 % AO Auto Heme SS Hemoglobin (Bld) [Mass/Vol] 15.6 G/dL Invalid Interpretation Code 14.0 - 18.0 G/dL AO Auto Heme SS Lymphocyte, Absolute 2.00 103/mcL Invalid Interpretation Code 0.77 - 3.85 10^3/mcL AO Auto Heme SS Lymphocytes/100 WBC (Bld) 17.4 % Invalid Interpretation Code 10.0 - 50.0 % AO Auto Heme SS MCH (RBC) [Entitic mass] 32.8 pg Invalid Interpretation Code 27.0 - 31.2 pg AO Auto Heme SS MCHC (RBC) [Mass/Vol] 33.6 G/dL Invalid Interpretation Code 31.8 - 35.4 G/dL AO Auto Heme SS MCV (RBC) [Entitic vol] 97.6 fL Invalid Interpretation Code 80.0 - 94.0 fL AO Auto Heme SS Monocyte, Absolute 0.80 103/mcL Invalid Interpretation Code 0.15 - 1.00 10^3/mcL AO Auto Heme SS Monocytes/100 WBC (Bld) 7.3 % Invalid Interpretation Code 1.7 - 13.0 % AO Auto Heme SS Neutrophil, Absolute 8.30 103/mcL Invalid Interpretation Code 2.85 - 6.16 10^3/mcL AO Auto Heme SS Neutrophils/100 WBC (Bld) 74.0 % Invalid Interpretation Code 37.0 - 80.0 % AO Auto Heme SS Platelet mean volume (Bld) [Entitic vol] 8.3 fL Invalid Interpretation Code 7.4 - 10.4 fL AO Auto Heme SS Platelets (Bld) [#/Vol] 230 103/mcL Invalid Interpretation Code 130 - 400 10^3/mcL AO Auto Heme SS RBC (Bld) [#/Vol] 4.74 106/mcL Invalid Interpretation Code 4.04 - 6.13 10^6/mcL AO Auto Heme SS WBC (Bld) [#/Vol] 11.20 103/mcL Invalid Interpretation Code 4.60 - 10.80 10^3/mcL AO Auto Heme SS LABORATORYOrdered By: Mara Armendariz on 09-07-2021 Calcium [Mass/Vol] 9.7 mg/dL Invalid Interpretation Code 8.4 - 10.2 mg/dL AO ADM SS Chloride [Moles/Vol] 99 mmol/L Invalid Interpretation Code 98 - 107 mmol/L AO ADM SS CO2 [Moles/Vol] 29 mmol/L Invalid Interpretation Code 23 - 31 mmol/L AO ADM SS Creatinine [Mass/Vol] 0.92 mg/dL Invalid Interpretation Code 0.70 - 1.30 mg/dL AO ADM SS Electrolyte Balance 9.0 mEq/L Invalid Interpretation Code AO ADM SS Glucose [Mass/Vol] 139 mg/dL Invalid Interpretation Code 80 - 115 mg/dL AO ADM SS INR Coag (PPP) [Relative time] 2.0 {INR} Invalid Interpretation Code 0.9 - 1.2 ratio AO Coag SS Potassium [Moles/Vol] 4.4 mmol/L Invalid Interpretation Code 3.5 - 5.1 mmol/L AO ADM SS PT Coag (PPP) [Time] 23.4 s Invalid Interpretation Code 9.7 - 14.3 seconds AO Coag SS Sodium [Moles/Vol] 137 mmol/L Invalid Interpretation Code 136 - 145 mmol/L AO ADM SS Troponin I.cardiac DL <= 0.01 ng/mL [Mass/Vol] 7.4 ng/L Invalid Interpretation Code 0.0 - 76.2 ng/L AO ADM SS Urea nitrogen [Mass/Vol] 13 mg/dL Invalid Interpretation Code 7 - 18 mg/dL AO ADM SS Urea nitrogen/Creatinine [Mass ratio] 14 ratio Invalid Interpretation Code 7 - 27 ratio AO ADM SS LABORATORYOrdered By: SYSTEM SYSTEM on 09-07-2021 GFR 99 ml/min/1.73sqm Invalid Interpretation Code AO Chemistry S GFR Non- 82 ml/min/1.73sqm Invalid Interpretation Code AO Chemistry S LABORATORYOrdered By: J Luis Irvin on 07-15-2021 Albumin BCP dye [Mass/Vol] 3.3 G/dL Invalid Interpretation Code 3.4 - 4.8 G/dL AO ADM SS Albumin/Globulin [Mass ratio] 1.0 {ratio} Invalid Interpretation Code 1.1 - 2.5 ratio AO ADM SS ALP [Catalytic activity/Vol] 74 U/L Invalid Interpretation Code 40 - 135 U/L AO ADM SS ALT With P-5'-P [Catalytic activity/Vol] 29 U/L Invalid Interpretation Code 16 - 63 U/L AO ADM SS AST With P-5'-P [Catalytic activity/Vol] 14 U/L Invalid Interpretation Code 10 - 40 U/L AO ADM SS Bilirubin [Mass/Vol] 0.6 mg/dL Invalid Interpretation Code 0.2 - 1.0 mg/dL AO ADM SS Calcium [Mass/Vol] 9.0 mg/dL Invalid Interpretation Code 8.4 - 10.2 mg/dL AO ADM SS Chloride [Moles/Vol] 99 mmol/L Invalid Interpretation Code 98 - 107 mmol/L AO ADM SS CO2 [Moles/Vol] 29 mmol/L Invalid Interpretation Code 23 - 31 mmol/L AO ADM SS Creatinine [Mass/Vol] 0.98 mg/dL Invalid Interpretation Code 0.70 - 1.30 mg/dL AO ADM SS Electrolyte Balance 8.0 mEq/L Invalid Interpretation Code AO ADM SS Globulin 3.4 G/dL Invalid Interpretation Code AO ADM SS Glucose [Mass/Vol] 156 mg/dL Invalid Interpretation Code 80 - 115 mg/dL AO ADM SS Natriuretic peptide.B prohormone N-Terminal [Mass/Vol] 82 pg/mL Invalid Interpretation Code 0 - 125 pg/mL AO ADM SS Potassium [Moles/Vol] 4.4 mmol/L Invalid Interpretation Code 3.5 - 5.1 mmol/L AO ADM SS Protein [Mass/Vol] 6.7 G/dL Invalid Interpretation Code 6.4 - 8.2 G/dL AO ADM SS Sodium [Moles/Vol] 136 mmol/L Invalid Interpretation Code 136 - 145 mmol/L AO ADM SS Urea nitrogen [Mass/Vol] 10 mg/dL Invalid Interpretation Code 7 - 18 mg/dL AO ADM SS Urea nitrogen/Creatinine [Mass ratio] 10 ratio Invalid Interpretation Code 7 - 27 ratio AO ADM SS LABORATORYOrdered By: Carlos Alberto Morfin on 07-15-2021 Basophil, Absolute 0.00 103/mcL Invalid Interpretation Code 0.00 - 0.19 10^3/mcL AO Auto Heme SS Basophils/100 WBC (Bld) 0.4 % Invalid Interpretation Code 0.0 - 2.5 % AO Auto Heme SS Eosinophil, Absolute 0.20 103/mcL Invalid Interpretation Code 0.00 - 0.40 10^3/mcL AO Auto Heme SS Eosinophils/100 WBC (Bld) 1.3 % Invalid Interpretation Code 0.0 - 7.0 % AO Auto Heme SS Erythrocyte distribution width (RBC) [Ratio] 15.3 % Invalid Interpretation Code 11.5 - 14.5 % AO Auto Heme SS Hematocrit (Bld) [Volume fraction] 44.0 % Invalid Interpretation Code 42.0 - 52.0 % AO Auto Heme SS Hemoglobin (Bld) [Mass/Vol] 14.9 G/dL Invalid Interpretation Code 14.0 - 18.0 G/dL AO Auto Heme SS Lymphocyte, Absolute 2.20 103/mcL Invalid Interpretation Code 0.77 - 3.85 10^3/mcL AO Auto Heme SS Lymphocytes/100 WBC (Bld) 17.2 % Invalid Interpretation Code 10.0 - 50.0 % AO Auto Heme SS MCH (RBC) [Entitic mass] 34.6 pg Invalid Interpretation Code 27.0 - 31.2 pg AO Auto Heme SS MCHC (RBC) [Mass/Vol] 33.8 G/dL Invalid Interpretation Code 31.8 - 35.4 G/dL AO Auto Heme SS MCV (RBC) [Entitic vol] 102.2 fL Invalid Interpretation Code 80.0 - 94.0 fL AO Auto Heme SS Monocyte, Absolute 1.10 103/mcL Invalid Interpretation Code 0.15 - 1.00 10^3/mcL AO Auto Heme SS Monocytes/100 WBC (Bld) 8.9 % Invalid Interpretation Code 1.7 - 13.0 % AO Auto Heme SS Neutrophil, Absolute 9.20 103/mcL Invalid Interpretation Code 2.85 - 6.16 10^3/mcL AO Auto Heme SS Neutrophils/100 WBC (Bld) 72.2 % Invalid Interpretation Code 37.0 - 80.0 % AO Auto Heme SS Platelet mean volume (Bld) [Entitic vol] 8.6 fL Invalid Interpretation Code 7.4 - 10.4 fL AO Auto Heme SS Platelets (Bld) [#/Vol] 255 103/mcL Invalid Interpretation Code 130 - 400 10^3/mcL AO Auto Heme SS RBC (Bld) [#/Vol] 4.30 106/mcL Invalid Interpretation Code 4.04 - 6.13 10^6/mcL AO Auto Heme SS WBC (Bld) [#/Vol] 12.70 103/mcL Invalid Interpretation Code 4.60 - 10.80 10^3/mcL AO Auto Heme SS LABORATORYOrdered By: SYSTEM SYSTEM on 07-15-2021 GFR 92 ml/min/1.73sqm Invalid Interpretation Code AO Chemistry S GFR Non- 76 ml/min/1.73sqm Invalid Interpretation Code AO Chemistry S Vital Signs Date Time Vital Sign Value Performing Clinician Carlos bradley 09-08-2021 17:05-0500 Heart rate 75 /min [employer] [facility] 09-08-2021 09:42-0500 Heart rate 78 /min [employer] WR[employer] [facility] 09-08-2021 07:36-0500 Body temperature 97.7 [degF] [employer] WR[employer] [facility] 09-08-2021 07:36-0500 Diastolic blood pressure 92 mm[Hg] [employer]ICE WR[employer] [facility] 09-08-2021 07:36-0500 Heart rate 64 /min [employer] WR[employer] [facility] 09-08-2021 07:36-0500 Reason For Taking VItal Signs [employer]ICE WR[employer] [facility] 09-08-2021 07:36-0500 Respiratory rate 18 /min [employer] SERVICE WRITER [facility] 09-08-2021 07:36-0500 Systolic blood pressure 128 mm[Hg] [employer] SERVICE WR[employer] [facility] 09-08-2021 03:27-0500 Body temperature 97.52 [degF] [employer]ICE WR[employer] [facility] 09-08-2021 03:27-0500 Diastolic blood pressure 86 mm[Hg] [employer] SERVICE WR[employer] [facility] 09-08-2021 03:27-0500 Heart rate 60 /min [employer] SERVICE WR[employer] [facility] 09-08-2021 03:27-0500 Reason For Taking VItal Signs [employer] SERVICE WR[employer] [facility] 09-08-2021 03:27-0500 Respiratory rate 16 /min [employer] SERVICE WRITER [facility] 09-08-2021 03:27-0500 Systolic blood pressure 125 mm[Hg] [employer] SERVICE WRITER [facility] 09-07-2021 23:40-0500 Body temperature 97.52 [degF] [employer] SERVICE WRITER [facility] 09-07-2021 23:40-0500 Diastolic blood pressure 62 mm[Hg] [employer] SERVICE WRITER [facility] 09-07-2021 23:40-0500 Heart rate 74 /min [employer] SERVICE WRITER [facility] 09-07-2021 23:40-0500 Mean blood pressure 75 mm[Hg] [employer] SERVICE WRITER [facility] 09-07-2021 23:40-0500 Reason For Taking VItal Signs [employer] SERVICE WRITER [facility] 09-07-2021 23:40-0500 Respiratory rate 18 /min [employer] SERVICE WRITER [facility] 09-07-2021 23:40-0500 Systolic blood pressure 100 mm[Hg] [employer] SERVICE WRITER [facility] 09-07-2021 22:04-0500 Heart rate 75 /min [employer] SERVICE WRITER [facility] 09-07-2021 19:35-0500 Body height 185.4 cm [employer] SERVICE WRITER [facility] 09-07-2021 19:35-0500 Body weight 120.5 kg [employer] SERVICE WRITER [facility] 09-07-2021 19:35-0500 Body weight 35.06 kg/m2 [employer] SERVICE WRITER [facility] 09-07-2021 19:15-0500 Body temperature 98.06 [degF] [employer] SERVICE WRITER [facility] 09-07-2021 19:15-0500 Heart rate 64 /min [employer] SERVICE WRITER [facility] 09-07-2021 10:15-0500 Body height 185.4 cm [employer] SERVICE WRITER [facility] 09-07-2021 10:15-0500 Body weight 122.7 kg [employer] SERVICE WRITER [facility] Encounters Encounter Date Encounter Type Care Provider Facility Start: 07-20-2024 End: 07-20-2024 ambulatory DELFINO JC PA-C Facility[place] [place] Start: 07-20-2024 End: 07-20-2024 Patient encounter procedure DELFINO JC PA-C [facility] Start: 01-24-2024 End: 01-25-[address] ENDER OLMEDO MD Facility:[facility] Start: 01-24-2024 End: 01-24-[address] ENDER OLMEDO MD [facility] Start: 07-31-2023 End: 08-01-[address] ENDER OLMEDO MD Facility:[facility] Start: 07-31-2023 End: 07-31-[address] ENDER OLMEDO MD [facility] Start: 04-19-2023 End: 04-20-2023 ambulatory HEAVENLY CHESTER DO Facility:[facility] Start: 03-28-2023 End: 03-29-[address] ENDER OLMEDO MD Facility:[facility] Start: 03-28-2023 End: 03-28-[address] ENDER OLMEDO MD [facility] Start: 01-03-2023 End: 01-03-2023 Patient encounter procedure HEAVENLY CHESTER DO [facility] Start: 08-16-2022 End: 08-16-2022 Patient encounter procedure HEAVENLY CHESTER DO [facility] Start: 07-19-2022 End: 07-19-2022 Patient encounter procedure HEAVENLY CHESTER DO [facility] Start: 07-14-2022 End: 07-14-[address] ENDER OLMEDO MD [facility] Start: 07-07-2022 End: 07-07-[address] ENDER OLMEDO MD [facility] Start: 04-19-2022 End: 04-19-[address] ENDER OLMEDO MD [facility] Start: 02-08-2022 End: 02-08-2022 Patient encounter procedure HEAVENLY CHESTER DO [facility] Start: 01-20-2022 End: 01-20-[address] ENDER OLMEDO MD [facility] Start: 11-24-2021 End: 11-24-[address] ENDER OLMEDO MD [facility] Start: 09-21-2021 End: 09-21-[address] ENDER OLMEDO MD [facility] Start: 09-07-2021 End: 09-08-2021 Pedro JAXON Angel ISAAC APRN-AUTO SERVICE WRITER [facility] Start: 09-03-2021 End: 09-03-[address] ENDER OLMEDO MD [facility] Start: 07-15-2021 End: 07-15-[address] SARAY MENDOZA DO [facility] Procedures Date Procedure Procedure Detail Performing Clinician Start: 10-02-2012 Creation of venoveno us bypass DR SARAY MENDOZA DO Start: 10-26-2004 Excision of squamous cell carcinoma DR SARAY MENDOZA DO Start: 10-02-[address] SARAY MENDOZA DO Start: 10-02-[address] SARAY MANJARREZ DO Immunizations Immunization Date Immunization Notes Care Provider [facility] 08-01-2023 influenza, high dose seasonal, preservative-free; Translations: [Fluad Quadrivalent PF ] DR ENDER OLMEDO MD [facility] 09-08-2021 influenza, injectabl e, quadrivalent, preservative free; Translations: [Fluarix PF Quadrivalent ] [facility] [employer] [facility] 07-15-2021 tetanus and diphther ia toxoids, adsorbed, preservative free, for adult use (5 Lf of tetanus toxoid and 2 Lf of diphtheria toxoid); Translations: [Tenivac] DR SARAY MENDOZA DO [facility] 12-10-2020 SARS-CoV-2 (COVID-19 ) Ad26 vaccine, recombinant [employer] [facility] Comment on above: Result Comment: 2020: [id number] 08-03-2020 influenza, injectabl e, quadrivalent, preservative free; Translations: [Fluarix PF Quadrivalent ] DR SARAY MENDOZA DO [facility] 07-12-2019 influenza, injectabl e, quadrivalent, preservative free; Translations: [Fluarix PF Quadrivalent ] DR SARAY MENDOZA DO [facility] 08-15-2013 influenza virus vaccine, unspecified formulation [employer] [facility] Payers Date Payer Category Payer Medicare [id number] 2023 Unknown [id number] 1950 Unknown [id number] 1950 Unknown [id number] 1950 Unknown [id number] [id number] 1950 Unknown [id number] [id number] 1950 Unknown [id number] [id number] Social History Date Type Detail Facility Start: 04-03-2019 End: 09-15-2021 Smokes tobacco daily (finding) [facility] Comment on above: Smoke exposure: Carlos y NONE SINCE [facility] 09/15/21 JL Sex Assigned At Male [facility] Medical Equipment Procedure Code Equipment Code Equipment Origin al Text Equipment Identifier Dates Blood Glucose Te st Strips Start: 03-30-2021 Lancets Start: 03-30-[address] Start: 03-30-2021 Lancets Start: 03-30-[address]ps Start: 03-30-2021 Lancets Start: 03-30-[address]ps Start: 03-30-2021 Lancets Start: 03-30-[address]ps Start: 03-30-2021 Lancets Start: 03-30-2021 See Instructions , Disp glucose test strips, #100, UAD daily to test blood sugar, # 100 EA, 3 Refill(s), Pharmacy: [facility]/pharmacy #[id number], Diabetes, 186, cm, 03/30/21 15:01:00 EDT, Height, 120.5, kg, 03/30/21 15:01:00 EDT, Dosing Weight Start: 03-30-2021 See Instructions , Dispense ultrafine lancets, #100, use 1 lancet daily to test blood sugar, # 100 EA, 3 Refill(s), Pharmacy: [facility]/pharmacy #[id number], Diabetes, 186, cm, 03/30/21 15:01:00 EDT, Height, 120.5, kg, 03/30/21 15:01:00 EDT, Dosing Weight Start: 03-30-2021 See Instructions , Disp glucose test strips, #100, UAD daily to test blood sugar, # 100 EA, 3 Refill(s), Pharmacy: [facility]/pharmacy #[id number], Diabetes, 186, cm, 03/30/21 15:01:00 EDT, Height, 120.5, kg, 03/30/21 15:01:00 EDT, Dosing Weight Start: 03-30-2021 See Instructions , Dispense ultrafine lancets, #100, use 1 lancet daily to test blood sugar, # 100 EA, 3 Refill(s), Pharmacy: [facility]/pharmacy #[id number], Diabetes, 186, cm, 03/30/21 15:01:00 EDT, Height, 120.5, kg, 03/30/21 15:01:00 EDT, Dosing Weight Start: 03-30-2021 See Instructions , Disp glucose test strips, #100, UAD daily to test blood sugar, # 100 EA, 3 Refill(s), [id number] Diabetes, 186, cm, 03/30/21 15:01:00 EDT, Height, 120.5, kg, 03/30/21 15:01:00 EDT, Dosing Weight Start: 03-30-2021 See Instructions , Dispense ultrafine lancets, #100, use 1 lancet daily to test blood sugar, # 100 EA, 3 Refill(s), [id number], Diabetes, 186, cm, 03/30/21 15:01:00 EDT, Height, 120.5, kg, 03/30/21 15:01:00 EDT, Dosing Weight Start: 03-30-2021 See Instructions , Disp glucose test strips, #100, UAD daily to test blood sugar, # 100 EA, 3 Refill(s), [id number], Diabetes, 186, cm, 03/30/21 15:01:00 EDT, Height, 120.5, kg, 03/30/21 15:01:00 EDT, Dosing Weight Start: 03-30-2021 See Instructions , Dispense ultrafine lancets, #100, use 1 lancet daily to test blood sugar, # 100 EA, 3 Refill(s), [id number], Diabetes, 186, cm, 03/30/21 15:01:00 EDT, Height, 120.5, kg, 03/30/21 15:01:00 EDT, Dosing Weight Start: 03-30-2021 See Instructions , Disp glucose test strips, #100, UAD daily to test blood sugar, # 100 EA, 3 Refill(s), [id number], Diabetes, 186, cm, 03/30/21 15:01:00 EDT, Height, 120.5, kg, 03/30/21 15:01:00 EDT, Dosing Weight Start: 03-30-2021 See Instructions , Dispense ultrafine lancets, #100, use 1 lancet daily to test blood sugar, # 100 EA, 3 Refill(s), [id number], Diabetes, 186, cm, 03/30/21 15:01:00 EDT, Height, 120.5, kg, 03/30/21 15:01:00 EDT, Dosing Weight Start: 03-30-2021 See Instructions , Disp glucose test strips, #100, UAD daily to test blood sugar, # 100 EA, 3 Refill(s), Pharmacy: [facility]/pharmacy #[id number], Diabetes, 186, cm, 03/30/21 15:01:00 EDT, Height, 120.5, kg, 03/30/21 15:01:00 EDT, Dosing Weight Start: 03-30-2021 See Instructions , Dispense ultrafine lancets, #100, use 1 lancet daily to test blood sugar, # 100 EA, 3 Refill(s), Pharmacy: [facility]/pharmacy #[id number], Diabetes, 186, cm, 03/30/21 15:01:00 EDT, Height, 120.5, kg, 03/30/21 15:01:00 EDT, Dosing Weight Start: 03-30-2021 See Instructions , Disp glucose test strips, #100, UAD daily to test blood sugar, # 100 EA, 3 Refill(s), [id number], Diabetes, 186, cm, 03/30/21 15:01:00 EDT, Height, 120.5, kg, 03/30/21 15:01:00 EDT, Dosing Weight Start: 03-30-2021 See Instructions , Dispense ultrafine lancets, #100, use 1 lancet daily to test blood sugar, # 100 EA, 3 Refill(s), [id number], Diabetes, 186, cm, 03/30/21 15:01:00 EDT, Height, 120.5, kg, 03/30/21 15:01:00 EDT, Dosing Weight Start: 03-30-2021 See Instructions , Disp glucose test strips, #100, UAD daily to test blood sugar, # 100 EA, 3 Refill(s), Pharmacy: [facility]/pharmacy #[id number], Diabetes, 186, cm, 03/30/21 15:01:00 EDT, Height, 120.5, kg, 03/30/21 15:01:00 EDT, Dosing Weight Start: 03-30-2021 See Instructions , Dispense ultrafine lancets, #100, use 1 lancet daily to test blood sugar, # 100 EA, 3 Refill(s), [id number], Diabetes, 186, cm, 03/30/21 15:01:00 EDT, Height, 120.5, kg, 03/30/21 15:01:00 EDT, Dosing Weight Start: 03-30-2021 See Instructions , Disp glucose test strips, #100, UAD daily to test blood sugar, # 100 EA, 3 Refill(s), [id number], Diabetes, 186, cm, 03/30/21 15:01:00 EDT, Height, 120.5, kg, 03/30/21 15:01:00 EDT, Dosing Weight Start: 03-30-2021 See Instructions , Dispense ultrafine lancets, #100, use 1 lancet daily to test blood sugar, # 100 EA, 3 Refill(s), [id number], Diabetes, 186, cm, 03/30/21 15:01:00 EDT, Height, 120.5, kg, 03/30/21 15:01:00 EDT, Dosing Weight Start: 03-30-2021 See Instructions , Disp glucose test strips, #100, UAD daily to test blood sugar, # 100 EA, 3 Refill(s), [id number], Diabetes, 186, cm, 03/30/21 15:01:00 EDT, Height, 120.5, kg, 03/30/21 15:01:00 EDT, Dosing Weight Start: 03-30-2021 See Instructions , Dispense ultrafine lancets, #100, use 1 lancet daily to test blood sugar, # 100 EA, 3 Refill(s), [id number], Diabetes, 186, cm, 03/30/21 15:01:00 EDT, Height, 120.5, kg, 03/30/21 15:01:00 EDT, Dosing Weight Start: 03-30-2021 See Instructions , Disp glucose test strips, #100, UAD daily to test blood sugar, # 100 EA, 3 Refill(s), [id number], Diabetes, 186, cm, 03/30/21 15:01:00 EDT, Height, 120.5, kg, 03/30/21 15:01:00 EDT, Dosing Weight Start: 03-30-2021 See Instructions , Dispense ultrafine lancets, #100, use 1 lancet daily to test blood sugar, # 100 EA, 3 Refill(s), Pharmacy: [facility]/pharmacy #[id number], Diabetes, 186, cm, 03/30/21 15:01:00 EDT, Height, 120.5, kg, 03/30/21 15:01:00 EDT, Dosing Weight Start: 03-30-2021 See Instructions , Disp glucose test strips, #100, UAD daily to test blood sugar, # 100 EA, 3 Refill(s), Pharmacy: [facility]/pharmacy #[id number], Diabetes, 186, cm, 03/30/21 15:01:00 EDT, Height, 120.5, kg, 03/30/21 15:01:00 EDT, Dosing Weight Start: 03-30-2021 See Instructions , Dispense ultrafine lancets, #100, use 1 lancet daily to test blood sugar, # 100 EA, 3 Refill(s), [id number], Diabetes, 186, cm, 03/30/21 15:01:00 EDT, Height, 120.5, kg, 03/30/21 15:01:00 EDT, Dosing Weight Start: 03-30-2021 See Instructions , Disp glucose test strips, #100, UAD daily to test blood sugar, # 100 EA, 3 Refill(s), [id number], Diabetes, 186, cm, 03/30/21 15:01:00 EDT, Height, 120.5, kg, 03/30/21 15:01:00 EDT, Dosing Weight Start: 03-30-2021 See Instructions , Dispense ultrafine lancets, #100, use 1 lancet daily to test blood sugar, # 100 EA, 3 Refill(s), Pharmacy: [facility]/pharm[facility] #[id number], Diabetes, 186, cm, 03/30/21 15:01:00 EDT, Height, 120.5, kg, 03/30/21 15:01:00 EDT, Dosing Weight Start: 03-30-2021 See Instructions , Disp glucose test strips, #100, UAD daily to test blood sugar, # 100 EA, 3 Refill(s), [id number], Diabetes, 186, cm, 03/30/21 15:01:00 EDT, Height, 120.5, kg, 03/30/21 15:01:00 EDT, Dosing Weight Start: 03-30-2021 See Instructions , Dispense ultrafine lancets, #100, use 1 lancet daily to test blood sugar, # 100 EA, 3 Refill(s), [id number], Diabetes, 186, cm, 03/30/21 15:01:00 EDT, Height, 120.5, kg, 03/30/21 15:01:00 EDT, Dosing Weight Start: 03-30-2021 Clinical Notes 09-07-2021 to 09-08-2021 Note Date & Type Note Facility 09-08-2021 Hospital Discharg e instructions Patient Education 09/08/2021 16:29:46 Near-Syncope, Bpik-tx-Eyji Near-Syncope Near-syncope is when you suddenly get weak or dizzy, or you feel like you might pass out (faint). This may also be called presyncope. This is due to a lack of blood flow to the brain. During an episode of near-syncope, you may: Feel dizzy, weak, or light-headed. Feel sick to your stomach (nauseous). See all white or all black. See spots. Have cold, clammy skin. This condition is caused by a sudden decrease in blood flow to the brain. This decrease can result from various causes, but most of those causes are not dangerous. However, near-syncope may be a sign of a serious medical problem, so it is important to seek medical care. Follow these instructions at home: Medicines Take ekba-meq-sgwfswp and prescription medicines only as told by your doctor. If you are taking blood pressure or heart medicine, get up slowly and spend many minutes getting ready to sit and then stand. This can help with dizziness. General instructions Be aware of any changes in your symptoms. Talk with your doctor about your symptoms. You may need to have testing to find the cause of your near-syncope. If you start to feel like you might pass out, lie down right away. Raise (elevate) your feet above the level of your heart. Breathe deeply and steadily. Wait until all of the symptoms are gone. Have someone stay with you until you feel stable. Do not drive, use machinery, or play sports until your doctor says it is okay. Drink enough fluid to keep your pee (urine) pale yellow. Keep all follow-up visits as told by your doctor. This is important. Get help right away if you: Have a seizure. Have pain in your: ?Chest. ?Belly (abdomen). ?Back. Faint once or more than once. Have a very bad headache. Are bleeding from your mouth or butt. Have black or tarry poop (stool). Have a very fast or uneven heartbeat (palpitations). Are mixed up (confused). Have trouble walking. Are very weak. Have trouble seeing. These symptoms may be an emergency. Do not wait to see if the symptoms will go away. Get medical help right away. Call your local emergency services (911 in the [place] Do not drive yourself to the hospital. Summary Near-syncope is when you suddenly get weak or dizzy, or you feel like you might pass out (faint). This condition is caused by a lack of blood flow to the brain. Near-syncope may be a sign of a serious medical problem, so it is important to seek medical care. This information is not intended to replace advice given to you by your health care provider. Make sure you discuss any questions you have with your health care provider. Document Released: 03/06/2009 Document Revised: 01/10/2020 Document Reviewed: 08/07/2019 [employer] Patient Education 2020 [employer] Follow Up Care 09/07/2021 09:58:14 With:You received Flu vaccine on 09/08/21. Address:Unknown When: Unknown With:HEAVENLY CHESTER DO Address: [address] [place] [address] [place] [address]- [phone] When:09/15/2021 09:30:00 Comments:Dr. Chester is not available. Your appointment is with Nery Casey NP. This is your post-hospital follow-up appointment. [facility] 09-07-2021 Evaluation + Plan note Extrac ava from: Title:History and Physical Author:JAXON ISAAC APRN-AUTO SERVICE WRITER Date:09/07/21 1. Near syncope 2. Essential hypertension 3. Hyperlipidemia 4. Type II diabetes mellitus 5. EDUARDO on CPAP 6. Morbid obesity 7. Inflammatory polyarthropathy 8. Factor V Leiden Will assign to observation with telemetry monitoring to evaluate for underlying arrhythmia. Obtain orthostatic vitals signs, echocardiogram, and carotid duplex studies. Once CT is available will obtain non-contrast CT of the head. Will trend serial troponin and check cortisol and TSH. Patient is on beta-fani and slightly bradycardic which could be a contributing factor. Will consider dose modification if other work-up is unremarkable. Upon discharge will send home on 48 hour Holter monitor. Hypertension, stable. Blood pressures are within acceptable parameters. Will check orthostatic vitals and resume home metoprolol with hold parameters. Hyperlipidemia, resume statin therapy. Type II diabetes mellitus. Glycemic monitoring per protocol. Resume home oral glycemic agents, glucose monitoring per protocol, will add corrective sliding scale to aim for glycemic goal less then 180. EDUARDO on CPAP, will utilize supplemental O2 at bedtime. Continue nocturnal CPAP as at home if he is able to have family bring his home unit. Obesity complicates all facets of care. History of inflammatory polyarthropathy being worked up by rheumatology, patient just completed course of prednisone. Factor V Leiden on chronic warfarin therapy. INR therapeutic at 2, goal INR between 2-3. DVT prophylaxis: SCDs, warfarin. CODE STATUS: FULL CODE. The plan of care was discussed with the patient, questions answered, and he is amenable to the plan. Case was discussed with my collaborating physician Dr. Soniya Guadalupe. This dictation was performed using voice recognition software and may include grammatical and/or spelling errors. Future Appointments Appointment Date:09/15/2021 09:30:00 AM Scheduled Provider:NERY CASEY Location:[facility] Appointment Type:[facility] Follow-Up Appointment Date:09/28/2021 11:30:00 AM Scheduled Provider:HEAVENLY CHESTER DO Location:[facility] Appointment Type:[facility] Evaluation + Plan note Future Appointments Appointment Date:09/28/2021 11:30:00 AM Scheduled Provider:HEAVENLY CHESTER DO Location:[facility] Appointment Type:PC OV [facility] Evaluation + Plan note Future Appointments Appointment Date:09/28/2021 11:30:00 AM Scheduled Provider:HEAVENLY CHESTER DO Location:[facility] Appointment Type:PC OV Diagnostic Tests Pending * G-6-PD Quant 09/03/21 [facility] Evaluation + Plan note Future Appointments Appointment Date:12/28/2021 10:30:00 AM Scheduled Provider:HEAVENLY CHESTER DO Location:[facility] Appointment Type:PC OV [facility] Evaluation + Plan note Future Appointments Appointment Date:02/08/2022 09:30:00 AM Scheduled Provider:HEAVENLY CHESTER DO Location:[facility] Appointment Type:PC OV Follow Up Appointment Date:04/01/2022 11:00:00 AM Scheduled Provider:HEAVENLY CHESTER DO Location:[facility] Appointment Type:PC OV Follow Up Future Scheduled Tests Laboratory* Complete Metabolic Panel 12/28/21 [facility] evaluation + Plan note Future Appointments Appointment Date:04/01/2022 11:00:00 AM Scheduled Provider:HEAVENLY CHESTER DO Location:[facility] Appointment Type:PC OV Follow Up Future Scheduled Tests Laboratory* Basic Metabolic Panel 02/20/22 * Microalbumin Level Urine 02/21/22 * Complete Metabolic Panel 12/28/21 [facility] Evaluation + Plan note Future Appointments Appointment Date:05/09/2022 03:45:00 PM Scheduled Provider: Location:[facility] Appointment Type:PC Nurse Protime Appointment Date:07/07/2022 03:45:00 PM Scheduled Provider:HEAVENLY CHESTER DO Location:[facility] Appointment Type:PC OV Follow Up Future Scheduled Tests Laboratory* Basic Metabolic Panel 02/20/22 * Microalbumin Level Urine 02/21/22 * Complete Metabolic Panel 12/28/21 [facility] Evaluation + Plan note Future Appointments Appointment Date:12/15/2022 01:00:00 PM Scheduled Provider:HEAVENLY CHESTER DO Location:[facility] Appointment Type:PC OV Diagnostic Tests Pending * TB Quantiferon, Incubated 07/07/22 Future Scheduled Tests Laboratory* Basic Metabolic Panel 02/20/22 * Microalbumin Level Urine 02/21/22 * Complete Metabolic Panel 12/28/21 [facility] [employer] + Plan note Future Appointments Appointment Date:12/15/2022 01:00:00 PM Scheduled Provider:HEAVENLY CHESTER DO Location:[facility] Appointment Type:PC OV Diagnostic Tests Pending * TB Quantiferon, Incubated 07/14/22 Future Scheduled Tests Laboratory* Basic Metabolic Panel 02/20/22 * Microalbumin Level Urine 02/21/22 * Complete Metabolic Panel 12/28/21 [facility] [employer] + Plan note Future Appointments Appointment Date:12/15/2022 01:00:00 PM Scheduled Provider:HEAVENLY CHESTER DO Location:[facility] Appointment Type:PC OV Future Scheduled Tests Laboratory* Potassium Level 08/02/22 * Basic Metabolic Panel 02/20/22 * Microalbumin Level Urine 02/21/22 * Complete Metabolic Panel 12/28/21 [facility] [employer] + Plan note Future Appointments Appointment Date:12/15/2022 01:00:00 PM Scheduled Provider:HEAVENLY CHESTER DO Location:[facility] Appointment Type:PC OV Future Scheduled Tests Laboratory* Basic Metabolic Panel 02/20/22 * Microalbumin Level Urine 02/21/22 * Complete Metabolic Panel 12/28/21 [facility] [employer] + Plan note Future Appointments Appointment Date:01/23/2023 02:15:00 PM Scheduled Provider: Location:[facility] Appointment Type:PC Nurse Protime Appointment Date:03/28/2023 02:30:00 PM Scheduled Provider:HEAVENLY CHESTER DO Location:[facility] Appointment Type:PC OV Future Scheduled Tests Laboratory* Potassium Level 12/22/22 * Basic Metabolic Panel 02/20/22 * Microalbumin Level Urine 02/21/22 [facility] Evaluation + Plan note Future Appointments Appointment Date:04/03/2023 02:30:00 PM Scheduled Provider:HEAVENLY CHESTER DO Location:[facility] Appointment Type:PC OV Future Scheduled Tests Laboratory* Potassium Level 12/22/22 [facility] Evaluation + Plan note Future Appointments Appointment Date:08/01/2023 08:30:00 AM Scheduled Provider:HEAVENLY CHESTER DO Location:[facility] Appointment Type:PC OV Future Scheduled Tests Laboratory* Potassium Level 12/22/22 [facility] Evaluation + Plan note Future Appointments Appointment Date:04/10/2024 04:00:00 PM Scheduled Provider:HEAVENLY CHESTER DO Location:[facility] Appointment Type:PC OV [facility] Evaluation + Plan note Future Appointments Appointment Date:07/24/2024 03:30:00 PM Scheduled Provider:HEAVENLY CHESTER DO Location:[facility] Appointment Type:PC OV Controlled Medication [facility] Hospital course Narrative No data available for this section [facility] Hospital Discharge instructions No data available for this section [facility] Progress note No data available for this section [facility] Summary Purpose Family History No Family History Records Found Advance Directives No Advanced Directives Records FoundNo Advanced Directives Records Found Additional Source Comments Care Team (unrecognized sect ion and content) Personnel Name: HEAVENLY CHESTER DO Address: [address] [place] [id number] Personnel Name: HEAVENLY CHESTER DO Address: [address] [place] [address]- Personnel Name: HEAVENLY CHESTER DO Address: [address] [place] [address]- Care Team Personnel Name: HEAVENLY CHESTER DO Position: P4 Physician - Primary Care Member Role: Primary Care Physician Address: Address: [address] [place] [address]- Care Team Related Persons Name: SAIDA DAVIS Care Almas Personnel Name: HEAVENLY CHESTER DO Position: P4 Physician - Primary Care Member Role: Primary Care Physician Address: Address: [address] [place] [address] Care Team Related Persons Name: SAIDA DAVIS Care Team Personnel Name: HEAVENLY CHESTER DO Position: P4 Physician - Primary Care Member Role: Primary Care Physician Address: Address: [address] [place] [address]- Care Team Related Persons Name: SAIDA DAVIS Care Team Personnel Name: HEAVENLY CHESTER DO Position: P4 Physician - Primary Care Member Role: Primary Care Physician Address: Address: [address] [place] [address]- Care Team Related Persons Name: SAIDA DAVIS Care Team Personnel Name: HEAVENLY CHESTER DO Position: P4 Physician - Primary Care Member Role: Primary Care Physician Address: Address: [address] [place] [address]- Care Team Related Persons Name: SAIDA DAVIS Care Team Personnel Name: HEAVENLY CHESTER DO Position: P4 Physician - Primary Care Member Role: Primary Care Physician Address: Address: [address] [place] [address]- Care Team Related Persons Name: SAIDA DAVIS Care Team (unrecognized sect ion and content) Care Team Personnel Name: HEAVENLY CHESTER DO Position: P4 Physician - Primary Care Med Service: Active Provider Member Role: Primary Care Physician Address: Address: [address] [place] [address]- Care Team Related Persons Name: SAIDA DAVIS Care Team Personnel Name: HEAVENLY CHESTER DO Position: P4 Physician - Primary Care Med Service: Active Provider Member Role: Primary Care Physician Address: Address: [address] [place] [address] Care Team Related Persons Name: SAIDA DAVIS Care Team Personnel Name: HEAVENLY CHESTER DO Position: P4 Physician - Primary Care Med Service: Active Provider Member Role: Primary Care Physician Address: Address: [address] [place] [address] Care Team Related Persons Name: SAIDA DAVIS Care Team Personnel Name: HEAVENLY CHESTER DO Position: P4 Physician - Primary Care Med Service: Active Provider Member Role: Primary Care Physician Address: Address: [address] [place] [address] Care Team Related Persons Name: SAIDA DAVIS Care Team Personnel Name: HEAVENLY CHESTER DO Position: P4 Physician - Primary Care Member Role: Primary Care Physician Address: Address: [address] [place] [address] Care Team Related Persons Name: SAIDA DAVIS (unrecognized sect ion and content) No Status Records FoundNo Status Records Found INFORMATION SOURCE (unrecogn ized section and content) DATE CREATED AUTHOR 01/26/2024 [facility] ([place]) DATE CREATED AUTHOR AUTHOR'S ORGANIZ ATION 08/01/2024 [facility] FOR RECORDS PERTAINING TO PATIENTS WHO ARE OR HAVE BEEN ENROLLED IN A CHEMICAL DEPENDENCY/SUBSTANCEABUSE PROGRAM, SOME INFORMATION MAY BE OMITTED. This clinical summary was aggregated from multiple sources. Caution should be exercised in using it in the provision of clinical care. This summary normalizes information from multiple sources, and as a consequence, information in this document may materially change the coding, format and clinical context of patient data. In addition, data may be omitted in some cases. CLINICAL DECISIONS SHOULD BE BASED ON THE PRIMARY CLINICAL RECORDS. [employer] provides no warranty or guarantee of the accuracy or completeness of information in this document.
--- NOTE | 2024-08-01 17:17 | POSTOPAN2_ITS ---
Anesthesia Postop Eval I Sum Postop Eval Completion status Anesthesia document: Postop Eval 1 completed: Yes Anesthesia Postop Eval I Summary Anesthesia Postop Eval I Summary: Anesthesia Postop Eval I: Assessment Summary Airway patent Yes 08/01/24 15:38 DOCUMENT CONTROL [email or web address].[email or web address] Spontaneous unlabored Yes 08/01/24 15:38 DOCUMENT CONTROL SPECIALIST.[email or web address] respirations Mental status Awake,Calm 08/01/24 15:38 DOCUMENT CONTROL SPECIALIST.[email or web address] nausea No 08/01/24 15:38 DOCUMENT CONTROL SPECIALIST.[email or web address] Vomiting No 08/01/24 15:38 DOCUMENT CONTROL SPECIALIST.[email or web address] Anesthesia Postop Eval I: Fluid Summary Crystalloid volume administer 1,000 08/01/24 15:38 DOCUMENT CONTROL SPECIALIST.JBLOU (ml) Colloids volume administered ( ml) Blood Product volume administered (ml) Total IV fluid infused 1,000 08/01/24 15:38 DOCUMENT CONTROL SPECIALIST.JBLOU Anesthesia Postop Eval I: Summary Notes Anesthesia Complication No 08/01/24 15:38 DOCUMENT CONTROL SPECIALIST.[email or web address] Anesthesia Complication Comment: Post-operative progress note Anesthesia: Postop Eval II Evaluation Mental status: Awake Pain Level: 1 nausea: No Vomiting: No
--- NOTE | 2024-08-01 17:17 | PCM.POSTANE2 ---
Anesthesia Postop Eval I Sum Postop Eval Completion status Anesthesia document: Postop Eval 1 completed: Yes Anesthesia Postop Eval I Summary Anesthesia Postop Eval I Summary: Anesthesia Postop Eval I: Assessment Summary Airway patent Yes 08/01/24 15:38 [email or web address] [email or web address] Spontaneous unlabored Yes 08/01/24 15:38 TELEPHONE [email or web address].[email or web address] respirations Mental status Awake,Calm 08/01/24 15:38 TELEPHONE [email or web address].JBLOU nausea No 08/01/24 15:38 TELEPHONE [email or web address].JBLOU Vomiting No 08/01/24 15:38 TELEPHONE [email or web address].JBLOU Anesthesia Postop Eval I: Fluid Summary Crystalloid volume administer 1,000 08/01/24 15:38 TELEPHONE [email or web address].JBLOU (ml) Colloids volume administered ( ml) Blood Product volume administered (ml) Total IV fluid infused 1,000 08/01/24 15:38 TELEPHONE [email or web address] Anesthesia Postop Eval I: Summary Notes Anesthesia Complication No 08/01/24 15:38 TELEPHONE [email or web address] Anesthesia Complication Comment: Post-operative progress note Anesthesia: Postop Eval II Evaluation Mental status: Awake Pain Level: 1 nausea: No Vomiting: No
[2024-08-01 17:30] LABS: Body Fluid QC Type(s) BF3
--- NOTE | 2024-08-01 17:32 | PCM.PN.HOSP ---
Subjective Subjective Consult requested by Dr. Cooper for anticoagulation management. Feeling well post-operatively. Objective Data Objective Data Vital Signs: Vital Signs Temp Pulse Resp BP Pulse Ox O2 Del Method O2 Flow Rate 36.7 C 66 16 148/77 H 95 Nasal Cannula 4 08/01/24 16:05 08/01/24 16:05 08/01/24 16:05 08/01/24 16:05 08/01/24 16:05 08/01/24 16:05 08/01/24 16:05 Oxygen Flow Rate (L/min) 4 Oxygen Delivery Method Nasal Cannula Weight: 119 kg Body Mass Index (BMI) 33.7 Intake & Output: Intake and Output for Last 24 Hours 07/30/24 07/31/24 08/01/24 23:59 23:59 23:59 Intake Total Balance Lab / Micro Data Labs: Laboratory Results - last 24 hr 08/01/24 12:10: POC PT 13.0, INR 1.1 08/01/24 12:33: POC Glucose 109 H 08/01/24 14:27: Fluid Source Cancelled, Fluid Color Cancelled, Fluid Appearance Cancelled, Fluid WBC Cancelled, Fluid RBC Cancelled, Fluid Tot Cell Count Cancelled, Fld Polynuclear WBCs # Cancelled, Fld Polynuclear WBCs % Cancelled, Fluid Mononuclear WBCs Cancelled, Fld Mononuclear WBCs % Cancelled, Fluid Neutrophils Cancelled, Fluid Lymphocytes Cancelled, Fluid Monocytes Cancelled, Fluid Plasma Cells Cancelled, Fluid Macrophages Cancelled, Fld Mesothelial Cells Cancelled, Fluid Other Cells Cancelled, Fl Pathologist Comment Cancelled, Fluid Comment 2 Cancelled, Synovial Source RIGHT KNEE, Synovial Color Red, Synovial Appearance Sl Cl, Synovial Viscosity Sl. 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 Has never taken shots before. Patient to start warfarin on 08/02. Given his history of PE, I would advise bridging him with enoxaparin (120mg BID). Initiate when ok with orthopaedics. Continue enoxaparin for 24 hours after INR has become therapeutic (between 2-3). Patient to follow up with his PCP for INR checks. Recommend home INR monitoring if that can be approved. DM2 uncontrolled. Resume glipizide and metformin. Add sliding scale insulin. s/p right quadricep tendon repair: per orthopaedics. WBAT. VTE prophylaxis: SCDs. Pt to be anticoagulated upon discharge Charges/Coding Visit Charges Office Visits / Consults: 68036 OV L3 Est 20min
[2024-08-01 17:33] LABS: Lymph 3 %; Monocyte /Synovial Fluid 4 %; Neutrophil 93 % (0-25)
--- OUTSIDE RECORDS SUMMARY | 2024-08-01 18:58 | XMS RPT_ITS | CCD ---
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 Name Role Phone HEAVENLY CHESTER DO Primary [...] [iodinated radiocontrast agents] Drug allergy Vomiting (disorder) [facility] Work Phone: (19 sources) Fluorouracil; Translations: [fluorouracil] Drug Allergy [facility] Work Phone: Comment on above: 5-FLUOROURACIL--CHEM [...] TID, # 90 tab(s), 1 Refill(s), Pharmacy: [facility]/pharmacy #[id number], Back spasm, 186.4, cm, 04/03/23 14:33:00 EDT, Height, kg, 04/03/23 14:33:00 EDT, Dosing Weight Start Date: 04/03/23 Status: Ordered Start: 04-23-2022 baclofen 10 mg oral tablet Dose : 10 mg = 1 tab(s), Oral, TID, # 90 tab(s), 1 Refill(s), [id number], Back spasm, 185.4, cm, 04/23/22 8:05:00 EDT, Height Start Date: 04/23/22 Status: Ordered Blood Glucose Test Machine (19 sources) Start: 03-30-2021 Blood Glucose Test Machine See Instructions, disp. 1 glucometer, UAD dialy to check blood sugar, # 1 EA, 0 Refill(s), Pharmacy: [facility]/pharmacy #[id number], Diabetes, 186, cm, 03/30/21 15:01:00 EDT, Height, 120.5, kg, 03/30/21 15:01:00 EDT, Dosing Weight Start Date: 03/30/21 Status: Ordered fluticasone propionate 0.05 mg/actuat metered dose nasal spray (14 sources) Corticosteroid Start: 04-10-2024 take 2 spray(s) nasal route once daily fluticasone 50 mcg/inh NASAL spray See Instructions, INSTILL 2 SPRAYS INTO NOSTRIL(S) DAILY, # 48 mL, 3 Refill(s), Pharmacy: [facility]/pharmacy #[id number], 185, cm, 04/10/24 16:03:00 EDT, Height, kg, 04/10/24 16:03:00 EDT, Dosing Weight Start Date: 04/10/24 Status: Ordered Start: 02-07-2023 take 2 spray(s) nasa l route once daily fluticasone 50 mcg/inh NASAL spray See Instructions, INSTILL 2 SPRAYS INTO NOSTRIL(S) DAILY, # 48 mL, 3 Refill(s), Pharmacy: [facility]/pharmacy #[id number], 185.5, cm, 12/22/22 14:31:00 EDT, Height, kg, 12/22/22 14:31:00 EDT, Dosing Weight Start Date: 02/07/23 Status: Ordered Start: 08-03-2020 take 2 spray(s) nasa l route once daily fluticasone 50 mcg/inh NASAL spray See Instructions, INSTILL 2 SPRAYS INTO NOSTRIL(S) DAILY, # 48 mL, 3 Refill(s), Pharmacy: [facility]/pharmacy #[id number], 186.5, cm, 08/03/20 14:37:00 EST, Height, kg, 08/03/20 14:37:00 EST, Dosing Weight Start Date: 08/03/20 Status: Ordered fluticasone 50 mcg/inh NASAL spray (5 sources) Start: 08-03-2020 take 2 spray(s) nasal route once daily fluticasone 50 mcg/inh NASAL spray See Instructions, INSTILL 2 SPRAYS INTO NOSTRIL(S) DAILY, # 48 mL, 3 Refill(s), Pharmacy: [facility]/pharmacy #[id number], 186.5, cm, 08/03/20 14:37:00 EST, Height, kg, 08/03/20 14:37:00 EST, Dosing Weight Start Date: 08/03/20 Status: Ordered glipiZIDE 5 mg oral tablet (14 sources) Sulfonylurea Start: 01-09-2024 End: 02-12-2025 glipiZIDE 5 mg oral tablet Dose : 5 mg = 1 tab(s), Oral, BID, # 200 tab(s), 3 Refill(s), Pharmacy: [facility]/pharmacy #[id number], Diabetes, 185.5, cm, 01/09/24 16:00:00 EDT, Height, kg, 01/09/24 16:00:00 EDT, Dosing Weight Start Date: 01/09/24 Stop Date: 02/12/25 Status: Ordered Start: 12-15-2022 glipiZIDE 5 mg oral tablet Dose : 5 mg = 1 tab(s), Oral, BID, # 180 tab(s), 3 Refill(s), Pharmacy: [facility]/pharmacy #[id number], Diabetes, 187, cm, 07/07/22 15:27:00 EDT, Height Start Date: 12/15/22 Status: Ordered Start: 07-07-2022 GlipiZIDE XL 1 0 mg oral tablet, extended release Dose : 10 mg = 1 tab(s), Oral, qDay, # 90 tab(s), 0 Refill(s), [id number], 187, cm, 07/07/22 15:27:00 EDT, Height, kg, 07/07/22 15:27:00 EDT, Dosing Weight Start Date: 07/07/22 Status: Ordered Start: 02-08-2022 GlipiZIDE XL 1 0 mg oral tablet, extended release Dose : 10 mg = 1 tab(s), Oral, qDay, # 90 tab(s), 0 Refill(s), [id number], 186.5, cm, 02/08/22 9:19:00 EDT, Height Start Date: 02/08/22 Status: Ordered Start: 12-28-2021 take 1-2 tablets by mouth once daily GlipiZIDE XL 5 mg oral tablet, extended release 1 to 2 tabs, Oral, qDay, # 60 tab(s), 1 Refill(s), [id number], Diabetes, 186, cm, 12/28/21 10:29:00 EDT, [...] qDay, # 90 tab(s), 3 Refill(s), [id number], Diabetes, 186.5, cm, 02/08/22 9:19:00 EDT, Height, kg, 02/08/22 9:19:00 EDT, Dosing Weight Start Date: 02/08/22 Status: Ordered Lopressor 25mg--USE metoprolol tartrate 25 mg oral tablet (14 sources) Start: 04-10-2024 End: 05-15-2025 Lopressor 25mg--USE metoprolol tartrate 25 mg oral tablet Dose : 25 mg = 1 tab(s), Oral, BID, # 200 tab(s), 3 Refill(s), Pharmacy: [facility]/pharmacy #[id number], 185, cm, 04/10/24 16:03:00 EDT, Height, kg, 04/10/24 16:03:00 EDT, Dosing Weight Start Date: 04/10/24 Stop Date: 05/15/25 Status: Ordered Start: 04-03-2023 take 1 tablet by megan th twice daily Lopressor 25mg--USE metoprolol tartrate 25 mg oral tablet See Instructions, TAKE 1 TABLET TWO TIMES DAILY, # 180 tab(s), 3 Refill(s), Pharmacy: [facility]/pharmacy #[id number], 186.4, cm, 04/03/23 14:33:00 EDT, Height, kg, 04/03/23 14:33:00 EDT, Dosing Weight Start Date: 04/03/23 Status: Ordered Start: 05-19-2022 take 1 tablet by megan th twice daily Lopressor 25mg--USE metoprolol tartrate 25 mg oral tablet See Instructions, TAKE 1 TABLET TWO TIMES DAILY, # 180 tab(s), 3 Refill(s), Pharmacy: [facility]/pharmacy #[id number], 185.4, cm, 04/23/22 8:05:00 EDT, Height, kg, 04/23/22 8:05:00 EDT, Dosing Weight Start Date: 05/19/22 Status: Ordered Start: 08-03-2020 take 1 tablet by megan th twice daily Lopressor 25mg--USE metoprolol tartrate 25 mg oral tablet See Instructions, TAKE 1 TABLET TWO TIMES DAILY, # 180 tab(s), 3 Refill(s), Pharmacy: [facility]/pharmacy #[id number], 186.5, cm, 08/03/20 14:37:00 EST, Height, kg, 08/03/20 14:37:00 EST, Dosing Weight Start Date: 08/03/20 Status: Ordered metFORMIN hydrochloride 500 mg oral tablet (19 sources) Biguanide Start: 07-15-2024 MetFORMIN (Eqv -Glucophage XR) 500 mg oral tablet, EXTENDED RELEASE Dose : 2,000 mg = 4 tab(s), Oral, qDay, # 360 tab(s), 3 Refill(s), [id number], Diabetes, 185, cm, 04/10/24 16:03:00 EDT, Height, kg, 04/10/24 16:03:00 EDT, Dosing Weight Start Date: 07/15/24 Status: Ordered Start: 08-02-2023 MetFORMIN (Eqv -Glucophage XR) 500 mg oral tablet, EXTENDED RELEASE Dose : 2,000 mg = 4 tab(s), Oral, qDay, # 360 tab(s), 3 Refill(s), Pharmacy: [facility]/pharmacy #[id number], Diabetes, 186, cm, 08/01/23 8:13:00 EDT, Height, kg, 08/01/23 8:13:00 EDT, Dosing Weight Start Date: 08/02/23 Status: Ordered Start: 07-07-2022 metFORMIN 500 mg oral tablet EXTENDED RELEASE Dose : 2,000 mg = 4 tab(s), Oral, qDay, # 360 tab(s), 3 Refill(s), Pharmacy: [facility]/pharmacy #[id number], Diabetes, 187, cm, 07/07/22 15:27:00 EDT, Height, kg, 07/07/22 15:27:00 EDT, Dosing Weight Start Date: 07/07/22 Status: Ordered Start: 06-29-2021 metFORMIN 500 mg oral tablet EXTENDED RELEASE Dose : 2,000 mg = 4 tab(s), Oral, qDay, # 360 tab(s), 3 Refill(s), Pharmacy: [facility]/pharmacy #[id number], Diabetes, 186, cm, 06/29/21 14:59:00 EDT, Height, kg, 06/29/21 14:59:00 EDT, Dosing Weight Start Date: 06/29/21 Status: Ordered metoprolol tartrate 25 mg oral tablet (5 sources) beta-Adrenergic Fani Start: 08-03-2020 take 1 tablet by mouth twice daily Lopressor 25mg--USE metoprolol tartrate 25 mg oral tablet See Instructions, TAKE 1 TABLET TWO TIMES DAILY, # 180 tab(s), 3 Refill(s), Pharmacy: [facility]/pharmacy #[id number], 186.5, cm, 08/03/20 14:37:00 EST, Height, kg, 08/03/20 14:37:00 EST, Dosing Weight Start Date: 08/03/20 Status: Ordered pravastatin sodium 40 mg oral tablet (19 sources) HMG-CoA Reductase Inhibitor Start: 07-15-2024 End: 07-10-2025 pravastatin 40 mg oral tablet Dose : 40 mg = 1 tab(s), Oral, qHS, # 90 tab(s), 3 Refill(s), Pharmacy: [facility]/pharmacy #[id number], 185, cm, 04/10/24 16:03:00 EDT, Height, kg, 04/10/24 16:03:00 EDT, Dosing Weight Start Date: 07/15/24 Stop Date: 07/10/25 Status: Ordered Start: 07-07-2022 take 1 tablet by megan th once daily at bedtime pravastatin 40 mg oral tablet See Instructions, TAKE 1 TABLET BY MOUTH EVERYDAY AT BEDTIME, # 90 tab(s), 3 Refill(s), Pharmacy: [facility]/pharmacy #[id number], 186, cm, 08/01/23 8:13:00 EDT, Height, kg, 08/01/23 8:13:00 EDT, Dosing Weight Start Date: 08/01/23 Status: Ordered Start: 06-29-2021 take 1 tablet by megan th once daily at bedtime pravastatin 40 mg oral tablet See Instructions, TAKE 1 TABLET BY MOUTH EVERYDAY AT BEDTIME, # 90 tab(s), 3 Refill(s), Pharmacy: [facility]/pharmacy #[id number], 186, cm, 06/29/21 14:59:00 EDT, Height, [...] meal, # 100 cap(s), 3 Refill(s), Pharmacy: [facility]/pharmacy #[id number], 185.5, cm, 10/10/23 15:02:00 EST, Height, kg, 10/10/23 15:02:00 EST, Dosing Weight Start Date: 10/10/23 Stop Date: 11/13/24 Status: Ordered Start: 12-22-2022 take 1 capsule by [facility] once daily at mealtime tamsulosin 0.4 mg oral capsule See Instructions, TAKE ONE CAPSULE EVERY DAY WITH A MEAL, # 90 cap(s), 3 Refill(s), Pharmacy: [facility]/pharmacy #[id number], 185.5, cm, 12/22/22 14:31:00 EDT, Height, kg, 12/22/22 14:31:00 EDT, Dosing Weight Start Date: 12/22/22 Status: Ordered Start: 01-10-2022 take 1 capsule by [facility] once daily at mealtime tamsulosin 0.4 mg oral capsule See Instructions, TAKE ONE CAPSULE EVERY DAY WITH A MEAL, # 90 cap(s), 3 Refill(s), Pharmacy: [facility]/pharmacy #[id number], 186, cm, 12/28/21 10:29:00 EDT, Height, kg, 12/28/21 10:29:00 EDT, Dosing Weight Start Date: 01/10/22 Status: Ordered Start: 10-21-2020 take 1 capsule by [facility] once daily at mealtime tamsulosin 0.4 mg oral capsule See Instructions, TAKE ONE CAPSULE EVERY DAY WITH A MEAL, # 90 cap(s), 3 Refill(s), Pharmacy: [facility]/pharmacy #[id number], 186.5, cm, 11/02/20 14:37:00 EST, Height, kg, 08/03/20 14:37:00 EST, Dosing Weight Start Date: 10/21/20 Status: Ordered warfarin sodium 5 mg oral tablet (19 sources) Vitamin K Antagonist Start: 10-10-2023 warfarin 5 mg oral tablet See Instructions, Take one half tab orally on Mon. and 1 tab orally on the other days of the week., # 90 tab(s), 1 Refill(s), Pharmacy: [facility]/pharmacy #[id number], 185.5, cm, 10/10/23 15:02:00 EST, Height, kg, 10/10/23 15:02:00 EST, Dosing Weight Start Date: 10/10/23 Status: Ordered Start: 12-22-2022 warfarin 5 mg oral tablet See Instructions, Take one half tab orally on M-W-F and 1 tab orally on the other days of the week., # 90 tab(s), 1 Refill(s), Pharmacy: [facility]/pharmacy #[id number], 185.5, cm, 12/22/22 14:31:00 EDT, Height, kg, 12/22/22 14:31:00 EDT, Dosing Weight Start Date: 12/22/22 Status: Ordered Start: 07-07-2022 warfarin 5 mg oral tablet See Instructions, Take one half tab orally on M-W-F and 1 tab orally on the other days of the week., # 90 tab(s), 1 Refill(s), Pharmacy: [facility]/pharmacy #[id number], 187, cm, 07/07/22 15:27:00 EDT, Height, kg, 07/07/22 15:27:00 EDT, Dosing Weight Start Date: 07/07/22 Status: Ordered Start: 02-08-2022 warfarin 5 mg oral tablet See Instructions, Take one half tab orally on Monday and Monday and 1 tab orally on the other days of the week., # 90 tab(s), 1 Refill(s), Pharmacy: [facility]/pharmacy #[id number], 186.5, cm, 02/08/22 9:19:00 EDT, Height, kg, 02/08/22 9:19:00 EDT, Dosing Weight Start Date: 02/08/22 Status: Ordered Start: 09-28-2021 warfarin 5 mg oral tablet Dose : 5 mg = 1 tab(s), Oral, qDay, # 90 tab(s), 1 Refill(s), [id number], 185.4, cm, 09/28/21 11:27:00 EST, Height, kg, 09/28/21 11:27:00 EST, Dosing Weight Start Date: 09/28/21 Status: Ordered Start: 02-16-2021 warfarin 5 mg oral tablet Dose : 5 mg = 1 tab(s), Oral, qDay, # 90 tab(s), 1 Refill(s), [id number], 186, cm, 02/16/21 14:39:00 EDT, Height, [...] pain, # 240 tab(s), 2 Refill(s), [id number], DDD (degenerative disc disease), lumbar, 185, cm, 04/10/24 16:03:00 EDT, Height, 121.2, kg, 04/10/24 16:03:00 EDT, Dosing Weight Start Date: 04/10/24 Stop Date: 07/09/24 Status: Ordered Start: 10-10-2023 End: 01-08-2024 take 1-2 tablets by mouth every six hours as needed for pain traMADol 50 mg oral tablet 1-2 tab(s), Oral, q6h, PRN for pain, # 240 tab(s), 2 Refill(s), Pharmacy: [facility]/pharmacy #[id number], DDD (degenerative disc disease), lumbar, 185.5, cm, 10/10/23 15:02:00 EST, Height, 121.2, kg, 10/10/23 15:02:00 EST, Dosing Weight Start Date: 10/10/23 Stop Date: 01/08/24 Status: Ordered Start: 04-03-2023 End: 07-02-2023 take 1-2 tablets by mouth every six hours as needed for pain traMADol 50 mg oral tablet 1-2 tab(s), Oral, q6h, PRN for pain, # 240 tab(s), 2 Refill(s), Pharmacy: [facility]/pharmacy #[id number], DDD (degenerative disc disease), lumbar, 186.4, cm, 04/03/23 14:33:00 EDT, Height, 119.4, kg, 04/03/23 14:33:00 EDT, Dosing Weight Start Date: 04/03/23 Stop Date: 07/02/23 Status: Ordered Start: 07-07-2022 End: 10-05-2022 take 1-2 tablets by mouth every six hours as needed for pain traMADol 50 mg oral tablet 1-2 tab(s), Oral, q6h, PRN for pain, # 240 tab(s), 2 Refill(s), Pharmacy: [facility]/pharmacy #[id number], DDD (degenerative disc disease), lumbar, 187, cm, 07/07/22 15:27:00 EDT, Height, 117.2, kg, 07/07/22 15:27:00 EDT, Dosing Weight Start Date: 07/07/22 Stop Date: 10/05/22 Status: Ordered Start: 09-28-2021 End: 03-28-2022 take 1-2 tablets by mouth every six hours as needed for pain traMADol 50 mg oral tablet 1-2 tab(s), Oral, q6h, PRN for pain, # 240 tab(s), 2 Refill(s), Pharmacy: [facility]/pharmacy #[id number], DDD (degenerative disc disease), lumbar, 186, cm, 12/28/21 10:29:00 EDT, Height, 124.2, kg, 12/28/21 10:29:00 EDT, Dosing Weight Start Date: 12/28/21 Stop Date: 03/28/22 Status: Ordered Start: 02-16-2021 End: 05-17-2021 take 1-2 tablets by mouth every six hours as needed for pain traMADol 50 mg oral tablet 1-2 tab(s), Oral, q6h, PRN for pain, # 240 tab(s), 2 Refill(s), Pharmacy: [facility]/pharmacy #[id number], DDD (degenerative disc disease), lumbar, 186, cm, [...] current use of drug therapy; Translations: [Other chcf (current) drug therapy] Episodic Other connective tissue [...] 0.1 10 3/mcL Normal 0.0-0.2 [facility] Comment on above: Performed By: #### A 1C, CBC, ANEU, ADIFF, GFR, PRO, BMP #### [address] [place], [place] [address] Basophils/100 WBC (Bld) 0.5 % Normal 0.0-2.5 [facility] Comment on above: Performed By: #### A 1C, CBC, ANEU, ADIFF, GFR, PRO, BMP #### [address] [place], [place] [address] Eosinophil, Absolute 0.3 10 3/mcL Normal 0.0-0.7 [facility] Comment on above: Performed By: #### A 1C, CBC, ANEU, ADIFF, GFR, PRO, BMP #### [address] [address] Eosinophils/100 WBC (Bld) 2.4 % Normal 0.0-7.0 [facility] Comment on above: Performed By: #### A 1C, CBC, ANEU, ADIFF, GFR, PRO, BMP #### [address] [address] Lymphocyte, Absolute 2.4 10 3/mcL Normal 0.9-4.3 [facility] Comment on above: Performed By: #### A 1C, CBC, ANEU, ADIFF, GFR, PRO, BMP #### [address] [address] Lymphocytes/100 WBC (Bld) 17.0 % Low 20.0-40.0 [facility] Comment on above: Performed By: #### A 1C, CBC, ANEU, ADIFF, GFR, PRO, BMP #### [address] [address] Monocyte, Absolute 1.0 10 3/mcL Normal 0.1-1.4 [facility] Comment on above: Performed By: #### A 1C, CBC, ANEU, ADIFF, GFR, PRO, BMP #### [address] [address] Monocytes/100 WBC (Bld) 7.0 % Normal 2.0-13.0 [facility] Comment on above: Performed By: #### A 1C, CBC, ANEU, ADIFF, GFR, PRO, BMP #### [address] [address] Neutrophils/100 WBC (Bld) 73.1 % Normal 50.0-75.0 [facility] Comment on above: Performed By: #### A 1C, CBC, ANEU, ADIFF, GFR, PRO, BMP #### [address] [address] .GFRon 07-20-2024 GFR 97 ml/min/1.73sqm Normal [facility] Comment on above: Result Comment: GFR Population [...] CBC, ANEU, ADIFF, GFR, PRO, BMP #### [address] [address] GFR Non- 80 ml/min/1.73sqm Normal [facility] Comment on above: Result Comment: GFR Population [...] CBC, ANEU, ADIFF, GFR, PRO, BMP #### [address] [address] .NEUABSon 07-20-2024 Neutrophil, Absolute 10.3 10 3/mcL High 2.3-8.1 A [facility] Comment on above: Performed By: #### A 1C, CBC, ANEU, ADIFF, GFR, PRO, BMP #### [address] [address] A1Con 07-20-2024 Glucose [Mass/Vol] 117 mg/dL Normal [facility] Comment on above: Result Comment: Shawna mated Average Glucose calculated by equation ((28.7xA1C)-46.7) Estimated average glucose (eAG) is a calculated value from Hemoglobin A1C and is outside dealer sales representative of the average blood glucose level in the last 2-3 month period. Normal range: less than 114 mg/dL Performed By: #### A 1C, CBC, ANEU, ADIFF, GFR, PRO, BMP #### [address] [address] HbA1c (Bld) [Mass fraction] 5.7 % Normal 4.3-6.4 [facility] Comment on above: Performed By: #### A 1C, CBC, ANEU, ADIFF, GFR, PRO, BMP #### [address] [address] BMPon 07-20-2024 BUN/Creatinine Ratio 14 ratio Normal 7-27 [facility] Comment on above: Performed By: #### A 1C, CBC, ANEU, ADIFF, GFR, PRO, BMP #### [address] [address] Calcium [Mass/Vol] 9.7 mg/dL Normal 8.4-10.2 [facility] Comment on above: Performed By: #### A 1C, CBC, ANEU, ADIFF, GFR, PRO, BMP #### [address] [address] Chloride [Moles/Vol] 98 mmol/L Normal 98-107 [facility] Comment on above: Performed By: #### A 1C, CBC, ANEU, ADIFF, GFR, PRO, BMP #### [address] [address] CO2 [Moles/Vol] 30 mmol/L Normal 23-31 [facility] Comment on above: Performed By: #### A 1C, CBC, ANEU, ADIFF, GFR, PRO, BMP #### [address] [address] Creatinine [Mass/Vol] 0.93 mg/dL Normal 0.70-1.30 [facility] Comment on above: Result Comment: Test ing performed on Siemens Dimension EXL analyzer using a modified kinetic Yoseph technique. Performed By: #### A 1C, CBC, ANEU, ADIFF, GFR, PRO, BMP #### [address] [address] Electrolyte Balance 7.0 mEq/L Normal 4.0-15.0 [facility] Comment on above: Performed By: #### A 1C, CBC, ANEU, ADIFF, GFR, PRO, BMP #### [address] [address] Glucose [Mass/Vol] 194 mg/dL High 83-110 [facility] Comment on above: Performed By: #### A 1C, CBC, ANEU, ADIFF, GFR, PRO, BMP #### [address] [address] Potassium [Moles/Vol] 4.8 mmol/L Normal 3.5-5.1 [facility] Comment on above: Performed By: #### A 1C, CBC, ANEU, ADIFF, GFR, PRO, BMP #### [address] [address] Sodium [Moles/Vol] 135 mmol/L Low 136-145 [facility] Comment on above: Performed By: #### A 1C, CBC, ANEU, ADIFF, GFR, PRO, BMP #### [address] [address] Urea nitrogen [Mass/Vol] 13 mg/dL Normal 7-18 [facility] Comment on above: Performed By: #### A 1C, CBC, ANEU, ADIFF, GFR, PRO, BMP #### [address] [address] CBCon 07-20-2024 Erythrocyte distribution width (RBC) [Ratio] 13.8 % Normal 11.5-15.5 [facility] Comment on above: Performed By: #### A 1C, CBC, ANEU, ADIFF, GFR, PRO, BMP #### [address] [address] Hematocrit (Bld) [Volume fraction] 45.1 % Normal 40.0-52.0 [facility] Comment on above: Performed By: #### A 1C, CBC, ANEU, ADIFF, GFR, PRO, BMP #### [address] [address] Hgb 15.2 G/dL Normal 13.0-17.5 [facility] Comment on above: Performed By: #### A 1C, CBC, ANEU, ADIFF, GFR, PRO, BMP #### [address] [address] MCH (RBC) [Entitic mass] 33.7 pg High 27.0-33.0 [facility] Comment on above: Performed By: #### A 1C, CBC, ANEU, ADIFF, GFR, PRO, BMP #### [place] [address] MCHC 33.8 G/dL Normal 32.0-36.0 [facility] Comment on above: Performed By: #### A 1C, CBC, ANEU, ADIFF, GFR, PRO, BMP #### [place] [address] MCV (RBC) [Entitic vol] 99.8 fL Normal 81.0-100.0 [facility] Comment on above: Performed By: #### A 1C, CBC, ANEU, ADIFF, GFR, PRO, BMP #### [address] [address] Platelet 316 10 3/mcL Normal 150-450 [facility] Comment on above: Performed By: #### A 1C, CBC, ANEU, ADIFF, GFR, PRO, BMP #### [place] [address] Platelet mean volume (Bld) [Entitic vol] 8.0 fL Normal 6.4-10.5 [facility] Comment on above: Performed By: #### A 1C, CBC, ANEU, ADIFF, GFR, PRO, BMP #### [address] [address] RBC 4.52 10 6/mcL Normal 4.50-6.00 [facility] Comment on above: Performed By: #### A 1C, CBC, ANEU, ADIFF, GFR, PRO, BMP #### [address] [place], [place] [address] WBC 14.2 10 3/mcL High 4.5-10.8 [facility] Comment on above: Performed By: #### A 1C, CBC, ANEU, ADIFF, GFR, PRO, BMP #### [address] [place], [place] [address] LABORATORYOrdered By: SYSTEM SYSTEM on 07-20-2024 Basophils [...] calculated value from Hemoglobin A1C and is outside dealer sales representative of the average blood glucose level [...] Comment on above: Interpretive Data: Eugenio dubon [employer] (CHEST, 1991, [id number]) [...] [Time] 47.2 s High 9.0-14.4 [facility] Comment on above: Performed By: #### A 1C, CBC, ANEU, ADIFF, GFR, PRO, BMP #### [address] [address] PT International Ratio 4.0 Normal [facility] Comment on above: Result Comment: [employer] (CHEST, 1992, [id number]) recommended therapeutic range for oral anticoagulant therapy is: LOW RISK: Prophylaxis of venous thrombosis INR: 2.0-3.0 Treatment of pulmonary embolism 2.0-3.0 Prevention of systemic embolism 2.0-3.0 HIGH RISK: Mechanical prosthetic valves 2.5-3.5 Performed By: #### A 1C, CBC, ANEU, ADIFF, GFR, PRO, BMP #### [address] [address] .Auto Diffon 01-24-2024 Basophil, Absolute 0.0 10 3/mcL Normal 0.0-0.2 [facility] ([place]) Comment on above: Performed By: #### A DIFF, CMP, ANEU, CBC, GFR #### [address] [address] Basophils/100 WBC (Bld) 0.5 % Normal 0.0-2.5 [facility] ([place]) Comment on above: Performed By: #### A DIFF, CMP, ANEU, CBC, GFR #### [address] [address] Eosinophil, Absolute 0.1 10 3/mcL Normal 0.0-0.4 [facility] ([place]) Comment on above: Performed By: #### A DIFF, CMP, ANEU, CBC, GFR #### [address] [address] Eosinophils/100 WBC (Bld) 1.3 % Normal 0.0-7.0 [facility] ([place]) Comment on above: Performed By: #### A DIFF, CMP, ANEU, CBC, GFR #### [address] [address] Lymphocyte, Absolute 1.9 10 3/mcL Normal 0.8-3.9 [facility] ([place]) Comment on above: Performed By: #### A DIFF, CMP, ANEU, CBC, GFR #### [address] [address] Lymphocytes/100 WBC (Bld) 21.6 % Normal 10.0-50.0 [facility] ([place]) Comment on above: Performed By: #### A DIFF, CMP, ANEU, CBC, GFR #### [address] [address] Monocyte, Absolute 0.9 10 3/mcL Normal 0.2-1.0 [facility] ([place]) Comment on above: Performed By: #### A DIFF, CMP, ANEU, CBC, GFR #### [address] [address] Monocytes/100 WBC (Bld) 10.1 % Normal 1.7-13.0 [facility] ([place]) Comment on above: Performed By: #### A DIFF, CMP, ANEU, CBC, GFR #### [address] [address] Neutrophils/100 WBC (Bld) 66.5 % Normal 37.0-80.0 [facility] ([place]) Comment on above: Performed By: #### A DIFF, CMP, ANEU, CBC, GFR #### [address] [address] .GFRon 01-24-2024 GFR 90 ml/min/1.73sqm Normal [facility] ([place]) Comment on above: Result Comment: GFR Population [...] A DIFF, CMP, ANEU, CBC, GFR #### [address] [address] GFR Non- 74 ml/min/1.73sqm Normal [facility] ([place]) Comment on above: Result Comment: GFR Population [...] A DIFF, CMP, ANEU, CBC, GFR #### [address] [address] .NEUABSon 01-24-2024 Neutrophil, Absolute 5.9 10 3/mcL Normal 2.9-6.2 [facility] ([place]) Comment on above: Performed By: #### A DIFF, CMP, ANEU, CBC, GFR #### [address] [address] CBCon 01-24-2024 Erythrocyte distribution width (RBC) [Ratio] 13.8 % Normal 11.5-14.5 [facility] ([place]) Comment on above: Performed By: #### A DIFF, CMP, ANEU, CBC, GFR #### [address] [address] Hematocrit (Bld) [Volume fraction] 49.9 % Normal 42.0-52.0 [facility] ([place]) Comment on above: Performed By: #### A DIFF, CMP, ANEU, CBC, GFR #### [address] [address] Hgb 17.1 G/dL Normal 14.0-18.0 [facility] ([place] Comment on above: Performed By: #### A DIFF, CMP, ANEU, CBC, GFR #### [address] [address] MCH (RBC) [Entitic mass] 33.1 pg High 27.0-31.2 [facility] ([place] Comment on above: Performed By: #### A DIFF, CMP, ANEU, CBC, GFR #### [address] [address] MCHC 34.2 G/dL Normal 31.8-35.4 [facility] ([place] Comment on above: Performed By: #### A DIFF, CMP, ANEU, CBC, GFR #### [address] [address] MCV (RBC) [Entitic vol] 96.6 fL High 80.0-94.0 [facility] ([place] Comment on above: Performed By: #### A DIFF, CMP, ANEU, CBC, GFR #### [address] [address] Platelet 187 10 3/mcL Normal 130-400 [facility] ([place]) Comment on above: Performed By: #### A DIFF, CMP, ANEU, CBC, GFR #### [address] [address] Platelet mean volume (Bld) [Entitic vol] 8.6 fL Normal 7.4-10.4 [facility] ([place] Comment on above: Performed By: #### A DIFF, CMP, ANEU, CBC, GFR #### [address] [address] RBC 5.17 10 6/mcL Normal 4.04-6.13 [facility] ([place]) Comment on above: Performed By: #### A DIFF, CMP, ANEU, CBC, GFR #### [address] [address] WBC 8.8 10 3/mcL Normal 4.6-10.8 [facility] ([place] Comment on above: Performed By: #### A DIFF, CMP, ANEU, CBC, GFR #### [address] [address] CMPon 01-24-2024 Albumin Level 3.9 G/dL Normal 3.4-4.8 [facility] ([place] Comment on above: Performed By: #### A DIFF, CMP, ANEU, CBC, GFR #### [address] [address] Albumin/Globulin [Mass ratio] 1.2 {ratio} Normal 1.1-2.5 [facility] ([place] Comment on above: Performed By: #### A DIFF, CMP, ANEU, CBC, GFR #### [address] [address] ALP [Catalytic activity/Vol] 69 U/L Normal 40-135 [facility] ([place] Comment on above: Performed By: #### A DIFF, CMP, ANEU, CBC, GFR #### [address] [address] ALT [Catalytic activity/Vol] 34 U/L Normal 16-63 [facility] ([place] Comment on above: Performed By: #### A DIFF, CMP, ANEU, CBC, GFR #### [address] [address] AST [Catalytic activity/Vol] 30 U/L Normal 10-40 [facility] ([place] Comment on above: Performed By: #### A DIFF, CMP, ANEU, CBC, GFR #### [address] [address] Bili Total 0.9 mg/dL Normal 0.2-1.0 [facility] ([place] Comment on above: Result Comment: Use of this assay is not recommended for patients undergoing treatment with eltrombopag due to the potential for falsely elevated results. Performed By: #### A DIFF, CMP, ANEU, CBC, GFR #### [address] [address] BUN/Creatinine Ratio 12 ratio Normal 7-27 [facility] ([place]) Comment on above: Performed By: #### A DIFF, CMP, ANEU, CBC, GFR #### [address] [address] Calcium [Mass/Vol] 10.3 mg/dL High 8.4-10.2 [facility] ([place]) Comment on above: Performed By: #### A DIFF, CMP, ANEU, CBC, GFR #### [address] [address] Chloride [Moles/Vol] 99 mmol/L Normal 98-107 [facility] ([place] Comment on above: Performed By: #### A DIFF, CMP, ANEU, CBC, GFR #### [address] [address] CO2 [Moles/Vol] 29 mmol/L Normal 23-31 [facility] ([place] Comment on above: Performed By: #### A DIFF, CMP, ANEU, CBC, GFR #### [address] [address] Creatinine [Mass/Vol] 0.99 mg/dL Normal 0.70-1.30 [facility] ([place]) Comment on above: Performed By: #### A DIFF, CMP, ANEU, CBC, GFR #### [address] [address] Electrolyte Balance 9.0 mEq/L Normal 4.0-15.0 [facility] ([place] Comment on above: Performed By: #### A DIFF, CMP, ANEU, CBC, GFR #### [address] [address] Globulin 3.2 G/dL Normal [facility] ([place] Comment on above: Performed By: #### A DIFF, CMP, ANEU, CBC, GFR #### [address] [address] Glucose [Mass/Vol] 61 mg/dL Low 83-110 [facility] ([place] Comment on above: Performed By: #### A DIFF, CMP, ANEU, CBC, GFR #### [address] [address] Potassium [Moles/Vol] 5.2 mmol/L High 3.5-5.1 [facility] ([place] Comment on above: Performed By: #### A DIFF, CMP, ANEU, CBC, GFR #### [address] [address] Sodium [Moles/Vol] 137 mmol/L Normal 136-145 [facility] ([place] Comment on above: Performed By: #### A DIFF, CMP, ANEU, CBC, GFR #### [address] [address] Total Protein 7.1 G/dL Normal 6.4-8.2 [facility] ([place] Comment on above: Performed By: #### A DIFF, CMP, ANEU, CBC, GFR #### [address] [address] Urea nitrogen [Mass/Vol] 12 mg/dL Normal 7-18 [facility] ([place] Comment on above: Performed By: #### A DIFF, CMP, ANEU, CBC, GFR #### [address] [address] LABORATORYOrdered By: SYSTEM SYSTEM on 01-24-2024 Albumin [...] Basophil, Absolute 0.0 10 3/mcL Normal 0.0-0.2 [facility] ([place] Comment on above: Performed By: #### A DIFF, CMP, ANEU, CBC, GFR #### [address] [address] Basophils/100 WBC (Bld) 0.4 % Normal 0.0-2.5 [facility] ([place] Comment on above: Performed By: #### A DIFF, CMP, ANEU, CBC, GFR #### [address] [address] Eosinophil, Absolute 0.1 10 3/mcL Normal 0.0-0.4 [facility] ([place] Comment on above: Performed By: #### A DIFF, CMP, ANEU, CBC, GFR #### [place] [place], [place] [address] Eosinophils/100 WBC (Bld) 0.7 % Normal 0.0-7.0 [facility] ([place] Comment on above: Performed By: #### A DIFF, CMP, ANEU, CBC, GFR #### [address] [address] Lymphocyte, Absolute 2.5 10 3/mcL Normal 0.8-3.9 [facility] ([place] Comment on above: Performed By: #### A DIFF, CMP, ANEU, CBC, GFR #### [address] [address] Lymphocytes/100 WBC (Bld) 21.9 % Normal 10.0-50.0 [facility] ([place] Comment on above: Performed By: #### A DIFF, CMP, ANEU, CBC, GFR #### [address] [address] Monocyte, Absolute 0.7 10 3/mcL Normal 0.2-1.0 [facility] ([place] Comment on above: Performed By: #### A DIFF, CMP, ANEU, CBC, GFR #### [address] [address] Monocytes/100 WBC (Bld) 5.8 % Normal 1.7-13.0 [facility] ([place] Comment on above: Performed By: #### A DIFF, CMP, ANEU, CBC, GFR #### [address] [address] Neutrophils/100 WBC (Bld) 71.2 % Normal 37.0-80.0 [facility] ([place] Comment on above: Performed By: #### A DIFF, CMP, ANEU, CBC, GFR #### [address] [address] .GFRon 07-31-2023 GFR Non- 69 ml/min/1.73sqm Normal [facility] ([place] Comment on above: Result Comment: GFR Population [...] A DIFF, CMP, ANEU, CBC, GFR #### [address] [address] GFR 83 ml/min/1.73sqm Normal [facility] ([place] Comment on above: Result Comment: GFR Population [...] A DIFF, CMP, ANEU, CBC, GFR #### [address] [address] .NEUABSon 07-31-2023 Neutrophil, Absolute 8.2 10 3/mcL High 2.9-6.2 [facility] ([place] Comment on above: Performed By: #### A DIFF, CMP, ANEU, CBC, GFR #### [address] [address] CBCon 07-31-2023 Erythrocyte distribution width (RBC) [Ratio] 13.9 % Normal 11.5-14.5 [facility] ([place] Comment on above: Performed By: #### A DIFF, CMP, ANEU, CBC, GFR #### [address] [address] Hematocrit (Bld) [Volume fraction] 49.1 % Normal 42.0-52.0 [facility] ([place] Comment on above: Performed By: #### A DIFF, CMP, ANEU, CBC, GFR #### [address] [address] Hgb 16.7 G/dL Normal 14.0-18.0 [facility] ([place] Comment on above: Performed By: #### A DIFF, CMP, ANEU, CBC, GFR #### [address] [address] MCH (RBC) [Entitic mass] 33.1 pg High 27.0-31.2 [facility] ([place] Comment on above: Performed By: #### A DIFF, CMP, ANEU, CBC, GFR #### [address] [address] MCHC 34.0 G/dL Normal 31.8-35.4 [facility] ([place] Comment on above: Performed By: #### A DIFF, CMP, ANEU, CBC, GFR #### [address] [address] MCV (RBC) [Entitic vol] 97.3 fL High 80.0-94.0 [facility] ([place] Comment on above: Performed By: #### A DIFF, CMP, ANEU, CBC, GFR #### [address] [address] Platelet 227 10 3/mcL Normal 130-400 [facility] ([place] Comment on above: Performed By: #### A DIFF, CMP, ANEU, CBC, GFR #### [address] [address] Platelet mean volume (Bld) [Entitic vol] 8.8 fL Normal 7.4-10.4 [facility] ([place] Comment on above: Performed By: #### A DIFF, CMP, ANEU, CBC, GFR #### [address] [address] RBC 5.04 10 6/mcL Normal 4.04-6.13 [facility] ([place] Comment on above: Performed By: #### A DIFF, CMP, ANEU, CBC, GFR #### [address] [address] WBC 11.5 10 3/mcL High 4.6-10.8 [facility] ([place] Comment on above: Performed By: #### A DIFF, CMP, ANEU, CBC, GFR #### [address] [address] CMPon 07-31-2023 Albumin Level 3.7 G/dL Normal 3.4-4.8 [facility] ([place] Comment on above: Performed By: #### A DIFF, CMP, ANEU, CBC, GFR #### [address] [address] Albumin/Globulin [Mass ratio] 1.0 {ratio} Low 1.1-2.5 [facility] ([place] Comment on above: Performed By: #### A DIFF, CMP, ANEU, CBC, GFR #### [address] [address] ALP [Catalytic activity/Vol] 78 U/L Normal 40-135 [facility] ([place] Comment on above: Performed By: #### A DIFF, CMP, ANEU, CBC, GFR #### [address] [address] ALT [Catalytic activity/Vol] 26 U/L Normal 16-63 [facility] ([place] Comment on above: Performed By: #### A DIFF, CMP, ANEU, CBC, GFR #### [address] [address] AST [Catalytic activity/Vol] 16 U/L Normal 10-40 [facility] ([place] Comment on above: Performed By: #### A DIFF, CMP, ANEU, CBC, GFR #### [address] [address] Bili Total 0.3 mg/dL Normal 0.2-1.0 [facility] ([place] Comment on above: Result Comment: Use of this assay is not recommended for patients undergoing treatment with eltrombopag due to the potential for falsely elevated results. Performed By: #### A DIFF, CMP, ANEU, CBC, GFR #### [address] [address] BUN/Creatinine Ratio 11 ratio Normal 7-27 [facility] ([place] Comment on above: Performed By: #### A DIFF, CMP, ANEU, CBC, GFR #### [address] [address] Calcium [Mass/Vol] 9.9 mg/dL Normal 8.4-10.2 [facility] ([place] Comment on above: Performed By: #### A DIFF, CMP, ANEU, CBC, GFR #### [place] [id number] Chloride [Moles/Vol] 99 mmol/L Normal 98-107 [facility] ([place] Comment on above: Performed By: #### A DIFF, CMP, ANEU, CBC, GFR #### [place] [id number] CO2 [Moles/Vol] 31 mmol/L Normal 23-31 [facility] ([place] Comment on above: Performed By: #### A DIFF, CMP, ANEU, CBC, GFR #### [address] [address] Creatinine [Mass/Vol] 1.06 mg/dL Normal 0.70-1.30 [facility] ([place] Comment on above: Performed By: #### A DIFF, CMP, ANEU, CBC, GFR #### [address] [address] Electrolyte Balance 7.0 mEq/L Normal 4.0-15.0 [facility] [place] Comment on above: Performed By: #### A DIFF, CMP, ANEU, CBC, GFR #### [address] [address] Globulin 3.7 G/dL Normal [facility] ([place] Comment on above: Performed By: #### A DIFF, CMP, ANEU, CBC, GFR #### [address] [address] Glucose [Mass/Vol] 137 mg/dL High 83-110 [facility] ([place] Comment on above: Performed By: #### A DIFF, CMP, ANEU, CBC, GFR #### [address] [address] Potassium [Moles/Vol] 5.4 mmol/L High 3.5-5.1 [facility] ([place] Comment on above: Performed By: #### A DIFF, CMP, ANEU, CBC, GFR #### [address] [address] Sodium [Moles/Vol] 137 mmol/L Normal 136-145 [facility] ([place] Comment on above: Performed By: #### A DIFF, CMP, ANEU, CBC, GFR #### [address] [address] Total Protein 7.4 G/dL Normal 6.4-8.2 [facility] ([place] Comment on above: Performed By: #### A DIFF, CMP, ANEU, CBC, GFR #### [address] [address] Urea nitrogen [Mass/Vol] 12 mg/dL Normal 7-18 [facility] ([place] Comment on above: Performed By: #### A DIFF, CMP, ANEU, CBC, GFR #### [address] [address] LABORATORYOrdered By: SYSTEM SYSTEM on 07-31-2023 Albumin [...] Basophil, Absolute 0.0 10 3/mcL Normal 0.0-0.2 [facility] ([place] Comment on above: Performed By: #### C MP, ANEU, ADIFF, CBC, GFR #### [address] [address] Basophils/100 WBC (Bld) 0.3 % Normal 0.0-2.5 [facility] ([place] Comment on above: Performed By: #### C MP, ANEU, ADIFF, CBC, GFR #### [address] [address] Eosinophil, Absolute 0.1 10 3/mcL Normal 0.0-0.4 [facility] ([place] Comment on above: Performed By: #### C MP, ANEU, ADIFF, CBC, GFR #### [address] [address] Eosinophils/100 WBC (Bld) 0.8 % Normal 0.0-7.0 [facility] ([place] Comment on above: Performed By: #### C MP, ANEU, ADIFF, CBC, GFR #### [address] [address] Lymphocyte, Absolute 1.9 10 3/mcL Normal 0.8-3.9 [facility] ([place] Comment on above: Performed By: #### C MP, ANEU, ADIFF, CBC, GFR #### [address] [address] Lymphocytes/100 WBC (Bld) 20.1 % Normal 10.0-50.0 [facility] ([place] Comment on above: Performed By: #### C MP, ANEU, ADIFF, CBC, GFR #### [address] [address] Monocyte, Absolute 0.6 10 3/mcL Normal 0.2-1.0 [facility] ([place] Comment on above: Performed By: #### C MP, ANEU, ADIFF, CBC, GFR #### [address] [address] Monocytes/100 WBC (Bld) 5.8 % Normal 1.7-13.0 [facility] ([place] Comment on above: Performed By: #### C MP, ANEU, ADIFF, CBC, GFR #### [address] [address] Neutrophils/100 WBC (Bld) 73.0 % Normal 37.0-80.0 [facility] ([place] Comment on above: Performed By: #### C MP, ANEU, ADIFF, CBC, GFR #### [address] [address] .GFRon 03-28-2023 GFR 86 ml/min/1.73sqm Normal [facility] ([place] Comment on above: Result Comment: GFR Population [...] C MP, ANEU, ADIFF, CBC, GFR #### [address] [address] GFR Non- 71 ml/min/1.73sqm Normal [facility] ([place] Comment on above: Result Comment: GFR Population [...] C MP, ANEU, ADIFF, CBC, GFR #### [address] [address] .NEUABSon 03-28-2023 Neutrophil, Absolute 6.9 10 3/mcL High 2.9-6.2 [facility] ([place] Comment on above: Performed By: #### C MP, ANEU, ADIFF, CBC, GFR #### [address] [address] CBCon 03-28-2023 Erythrocyte distribution width (RBC) [Ratio] 13.2 % Normal 11.5-14.5 [facility] ([place] Comment on above: Performed By: #### C MP, ANEU, ADIFF, CBC, GFR #### [address] [address] Hematocrit (Bld) [Volume fraction] 48.9 % Normal 42.0-52.0 [facility] ([place] Comment on above: Performed By: #### C MP, ANEU, ADIFF, CBC, GFR #### [address] [address] Hgb 16.6 G/dL Normal 14.0-18.0 [facility] ([place] Comment on above: Performed By: #### C MP, ANEU, ADIFF, CBC, GFR #### [address] [address] MCH (RBC) [Entitic mass] 32.9 pg High 27.0-31.2 [facility] ([place] Comment on above: Performed By: #### C MP, ANEU, ADIFF, CBC, GFR #### [address] [address] MCHC 34.0 G/dL Normal 31.8-35.4 [facility] ([place] Comment on above: Performed By: #### C MP, ANEU, ADIFF, CBC, GFR #### [address] [address] MCV (RBC) [Entitic vol] 96.6 fL High 80.0-94.0 [facility] ([place] Comment on above: Performed By: #### C MP, ANEU, ADIFF, CBC, GFR #### [address] [address] Platelet 209 10 3/mcL Normal 130-400 [facility] ([place] Comment on above: Performed By: #### C MP, ANEU, ADIFF, CBC, GFR #### [address] [address] Platelet mean volume (Bld) [Entitic vol] 8.8 fL Normal 7.4-10.4 [facility] ([place] Comment on above: Performed By: #### C MP, ANEU, ADIFF, CBC, GFR #### [address] [address] RBC 5.06 10 6/mcL Normal 4.04-6.13 [facility] ([place] Comment on above: Performed By: #### C MP, ANEU, ADIFF, CBC, GFR #### [address] [address] WBC 9.4 10 3/mcL Normal 4.6-10.8 [facility] ([place] Comment on above: Performed By: #### C MP, ANEU, ADIFF, CBC, GFR #### [address] [address] CMPon 03-28-2023 Albumin Level 3.6 G/dL Normal 3.4-4.8 [facility] ([place] Comment on above: Performed By: #### C MP, ANEU, ADIFF, CBC, GFR #### [address] [address] Albumin/Globulin [Mass ratio] 1.1 {ratio} Normal 1.1-2.5 [facility] ([place] Comment on above: Performed By: #### C MP, ANEU, ADIFF, CBC, GFR #### [address] [address] ALP [Catalytic activity/Vol] 76 U/L Normal 40-135 [facility] ([place] Comment on above: Performed By: #### C MP, ANEU, ADIFF, CBC, GFR #### [address] [address] ALT [Catalytic activity/Vol] 31 U/L Normal 16-63 [facility] ([place] Comment on above: Performed By: #### C MP, ANEU, ADIFF, CBC, GFR #### [address] [address] AST [Catalytic activity/Vol] 21 U/L Normal 10-40 [facility] ([place] Comment on above: Performed By: #### C MP, ANEU, ADIFF, CBC, GFR #### [address] [address] Bili Total 0.6 mg/dL Normal 0.2-1.0 [facility] ([place] Comment on above: Result Comment: Use of this assay is not recommended for patients undergoing treatment with eltrombopag due to the potential for falsely elevated results. Performed By: #### C MP, ANEU, ADIFF, CBC, GFR #### [address] [address] BUN/Creatinine Ratio 13 ratio Normal 7-27 [facility] ([place] Comment on above: Performed By: #### C MP, ANEU, ADIFF, CBC, GFR #### [address] [address] Calcium [Mass/Vol] 9.9 mg/dL Normal 8.4-10.2 [facility] ([place] Comment on above: Performed By: #### C MP, ANEU, ADIFF, CBC, GFR #### [address] [address] Chloride [Moles/Vol] 98 mmol/L Normal 98-107 [facility] ([place] Comment on above: Performed By: #### C MP, ANEU, ADIFF, CBC, GFR #### [address] [address] CO2 [Moles/Vol] 32 mmol/L High 23-31 [facility] ([place] Comment on above: Performed By: #### C MP, ANEU, ADIFF, CBC, GFR #### [address] [address] Creatinine [Mass/Vol] 1.03 mg/dL Normal 0.70-1.30 [facility] ([place] Comment on above: Performed By: #### C MP, ANEU, ADIFF, CBC, GFR #### [address] [address] Electrolyte Balance 6.0 mEq/L Normal 4.0-15.0 [facility] ([place] Comment on above: Performed By: #### C MP, ANEU, ADIFF, CBC, GFR #### [address] [address] Globulin 3.3 G/dL Normal [facility] ([place] Comment on above: Performed By: #### C MP, ANEU, ADIFF, CBC, GFR #### [address] [address] Glucose [Mass/Vol] 125 mg/dL High 83-110 [facility] ([place] Comment on above: Performed By: #### C MP, ANEU, ADIFF, CBC, GFR #### [address] [address] Potassium [Moles/Vol] 5.6 mmol/L High 3.5-5.1 [facility] ([place] Comment on above: Performed By: #### C MP, ANEU, ADIFF, CBC, GFR #### [address] [address] Sodium [Moles/Vol] 136 mmol/L Normal 136-145 [facility] ([place] Comment on above: Performed By: #### C MP, ANEU, ADIFF, CBC, GFR #### [address] [address] Total Protein 6.9 G/dL Normal 6.4-8.2 [facility] ([place] Comment on above: Performed By: #### C MP, ANEU, ADIFF, CBC, GFR #### [address] [address] Urea nitrogen [Mass/Vol] 13 mg/dL Normal 7-18 [facility] ([place] Comment on above: Performed By: #### C MP, ANEU, ADIFF, CBC, GFR #### [address] [address] LABORATORYOrdered By: SYSTEM SYSTEM on 03-28-2023 Albumin [...] Albumin DL <= 20 mg/L (U) [Mass/Vol] 439[address] mcg/dL Invalid Interpretation Code AO ADM SS [...] Glucose Testing Reason Routine (09/08/21 11:48 AM) [facility] Glucose [Mass/Vol] 120 mg/dL Invalid Interpretation Code 82 - 115 mg/dL [facility] Glucose [Mass/Vol] 100 mg/dL Invalid Interpretation Code 82 - 115 mg/dL [facility] LABORATORYOrdered By: Apple Connor on 09-08-2021 [...] Invalid Interpretation Code 82 - 115 mg/dL [facility] LABORATORYOrdered By: Santy Emerson on 09-08-2021 Blood Glucose Testing Reason Routine (09/08/21 2:25 AM) [facility] LABORATORYOrdered By: Gale Kelsey on 09-07-2021 Blood Glucose Testing Reason Routine (09/07/21 9:41 PM) [facility] LABORATORYOrdered By: Carlos Alberto Morfin on [...] 17:05-0500 Heart rate 75 /min [employer] [facility] 09-08-2021 09:42-0500 Heart rate 78 /min [employer] [facility] 09-08-2021 07:36-0500 Body temperature 97.7 [degF] [employer] [facility] 09-08-2021 07:36-0500 Diastolic blood pressure 92 mm[Hg] [employer] [facility] 09-08-2021 07:36-0500 Heart rate 64 /min [employer] [facility] 09-08-2021 07:36-0500 Reason For Taking VItal Signs [employer] [facility] 09-08-2021 07:36-0500 Respiratory rate 18 /min [employer] [facility] 09-08-2021 07:36-0500 Systolic blood pressure 128 mm[Hg] [employer] [facility] 09-08-2021 03:27-0500 Body temperature 97.52 [degF] [employer] [facility] 09-08-2021 03:27-0500 Diastolic blood pressure 86 mm[Hg] [employer] [facility] 09-08-2021 03:27-0500 Heart rate 60 /min [employer] [facility] 09-08-2021 03:27-0500 Reason For Taking VItal Signs [employer] [facility] 09-08-2021 03:27-0500 Respiratory rate 16 /min [employer] [facility] 09-08-2021 03:27-0500 Systolic blood pressure 125 mm[Hg] [employer] [facility] 09-07-2021 23:40-0500 Body temperature 97.52 [degF] [employer] [facility] 09-07-2021 23:40-0500 Diastolic blood pressure 62 mm[Hg] [employer] [facility] 09-07-2021 23:40-0500 Heart rate 74 /min [employer] [facility] 09-07-2021 23:40-0500 Mean blood pressure 75 mm[Hg] [employer] [facility] 09-07-2021 23:40-0500 Reason For Taking VItal Signs [employer] [facility] 09-07-2021 23:40-0500 Respiratory rate 18 /min [employer] [facility] 09-07-2021 23:40-0500 Systolic blood pressure 100 mm[Hg] [employer] [facility] 09-07-2021 22:04-0500 Heart rate 75 /min [employer] [facility] 09-07-2021 19:35-0500 Body height 185.4 cm [employer] [facility] 09-07-2021 19:35-0500 Body weight 120.5 kg [employer] [facility] 09-07-2021 19:35-0500 Body weight 35.06 kg/m2 [employer] [facility] 09-07-2021 19:15-0500 Body temperature 98.06 [degF] [employer] [facility] 09-07-2021 19:15-0500 Heart rate 64 /min [employer] [facility] 09-07-2021 10:15-0500 Body height 185.4 cm [employer] [facility] 09-07-2021 10:15-0500 Body weight 122.7 kg [employer] [facility] Encounters Encounter Date Encounter Type Care Provider Facility Start: 07-20-2024 End: 07-20-2024 ambulatory DELFINO JC PA-C Facility:[facility] Start: 07-20-2024 End: 07-20-2024 Patient encounter procedure DELFINO JC PA-C [facility] Start: 01-24-2024 End: 01-25-[address] ENDER OLMEDO MD Facility:[facility] Start: 01-24-2024 End: 01-24-[address] ENDER OLMEDO MD [facility] Start: 07-31-2023 End: 08-01-[address] ENDER OLMEDO MD Facility:B Start: 07-31-2023 End: 07-31-[address] ENDER OLMEDO MD [facility] Start: 04-19-2023 End: 04-20-2023 ambulatory HEAVENLY CHESTER DO Facility:A Start: 03-28-2023 End: 03-29-[address] ENDER OLMEDO MD Facility:B Start: 03-28-2023 End: 03-28-[address] ENDER OLMEDO MD [facility] Start: 01-03-2023 End: 01-03-2023 Patient encounter procedure HEAVENLY CHESTER DO [facility] Start: 08-16-2022 End: 08-16-2022 Patient encounter procedure HEAVENLY CHESTER DO [facility] Start: 07-19-2022 End: 07-19-2022 Patient encounter procedure HEAVENLY CHESTER DO [facility] Start: 07-14-2022 End: 07-14-[address] ENDER OLMEDO MD [facility] Start: 07-07-2022 End: 07-07-[address] ENDER OLMEDO MD [facility] Start: 04-19-2022 End: 04-19-[address] ENDER OLMEDO MD [facility] Start: 02-08-2022 End: 02-08-2022 Patient encounter procedure HEAVENLY CHESTER DO [facility] Start: 01-20-2022 End: 01-20-[address] ENDER OLMEDO MD [facility] Start: 11-24-2021 End: 11-24-[address] ENDER OLMEDO MD [facility] Start: 09-21-2021 End: 09-21-[address] ENDER OLMEDO MD [facility] Start: 09-07-2021 End: 09-08-2021 Pedro JAXON Angel ISAAC APRN-DELIVERY AND INSTALLATION SUBCONTRACTOR [facility] Start: 09-03-2021 End: 09-03-[address] ENDER OLMEDO MD [facility] Start: 07-15-2021 End: 07-15-[address] SARAY MENDOZA DO [facility] Procedures Date Procedure Procedure Detail Performing Clinician Start: 10-02-2012 Creation of venoveno us bypass DR SARAY MENDOZA DO Start: 10-26-2004 Excision of squamous cell carcinoma DR SARAY MENDOZA DO Start: 10-02-[address] SARAY MENDOZA DO Start: 10-02-[address] SARAY MANJARREZ DO Immunizations Immunization Date Immunization Notes Care Provider [facility] 08-01-2023 influenza, high dose seasonal, preservative-free; Translations: [Fluad Quadrivalent PF ] DR ENDER OLMEDO MD [facility] 09-08-2021 influenza, injectabl e, quadrivalent, preservative free; Translations: [Fluarix PF Quadrivalent ] [facility] [employer] [facility] 07-15-2021 tetanus and diphther ia toxoids, adsorbed, preservative free, for adult use (5 Lf of tetanus toxoid and 2 Lf of diphtheria toxoid); Translations: [Tenivac] DR SARAY MENDOZA DO [facility] 12-10-2020 SARS-CoV-2 (COVID-19 ) Ad26 vaccine, recombinant JAXON [employer] [facility] Comment on above: Result Comment: 2020: [id number] 08-03-2020 influenza, injectabl e, quadrivalent, preservative free; Translations: [Fluarix PF Quadrivalent ] DR SARAY MENDOZA DO [facility] 07-12-2019 influenza, injectabl e, quadrivalent, preservative free; Translations: [Fluarix PF Quadrivalent ] DR SARAY MENDOZA DO [facility] 08-15-2013 influenza virus vaccine, unspecified formulation [facility] [employer] [facility] [facility] Payers Date Payer Category Payer Medicare [id number] 2023 Unknown [id number] 1950 Unknown [id number] 1950 Unknown [id number] 1950 Unknown [id number] [id number] 1950 Unknown [id number] 1950 Unknown [id number] [id number] Social History Date Type Detail Facility Start: 04-03-2019 End: 09-15-2021 Smokes tobacco daily (finding) [facility] Comment on above: Smoke exposure: Carlos y NONE [facility]INCE [facility] 09/15/21 JL Sex Assigned At Male [facility] Medical Equipment Procedure Code Equipment Code Equipment [...] sugar, # 100 EA, 3 Refill(s), Pharmacy: [facility]/pharmacy #[id number], Diabetes, 186, cm, 03/30/21 15:01:00 EDT, Height, 120.5, kg, 03/30/21 15:01:00 EDT, Dosing Weight Start: 03-30-2021 See Instructions , Dispense ultrafine lancets, #100, use 1 lancet daily to test blood sugar, # 100 EA, 3 Refill(s), Pharmacy: [facility]/pharmacy #[id number], Diabetes, 186, cm, 03/30/21 15:01:00 EDT, Height, 120.5, kg, 03/30/21 15:01:00 EDT, Dosing Weight Start: 03-30-2021 See Instructions , Disp glucose test strips, #100, UAD daily to test blood sugar, # 100 EA, 3 Refill(s), Pharmacy: [facility]/pharmacy #[id number], Diabetes, 186, cm, 03/30/21 15:01:00 EDT, Height, 120.5, kg, 03/30/21 15:01:00 EDT, Dosing Weight Start: 03-30-2021 See Instructions , Dispense ultrafine lancets, #100, use 1 lancet daily to test blood sugar, # 100 EA, 3 Refill(s), Pharmacy: [facility]/pharmacy #[id number], Diabetes, 186, cm, 03/30/21 15:01:00 EDT, Height, 120.5, kg, 03/30/21 15:01:00 EDT, Dosing Weight Start: 03-30-2021 See Instructions , Disp glucose test strips, #100, UAD daily to test blood sugar, # 100 EA, 3 Refill(s), [id number] Diabetes, 186, cm, 03/30/21 15:01:00 EDT, Height, 120.5, kg, 03/30/21 15:01:00 EDT, Dosing Weight Start: 03-30-2021 See Instructions , Dispense ultrafine lancets, #100, use 1 lancet daily to test blood sugar, # 100 EA, 3 Refill(s), [id number], Diabetes, 186, cm, 03/30/21 15:01:00 EDT, Height, 120.5, kg, 03/30/21 15:01:00 EDT, Dosing Weight Start: 03-30-2021 See Instructions , Disp glucose test strips, #100, UAD daily to test blood sugar, # 100 EA, 3 Refill(s), [id number], Diabetes, 186, cm, 03/30/21 15:01:00 EDT, Height, 120.5, kg, 03/30/21 15:01:00 EDT, Dosing Weight Start: 03-30-2021 See Instructions , Dispense ultrafine lancets, #100, use 1 lancet daily to test blood sugar, # 100 EA, 3 Refill(s), [id number], Diabetes, 186, cm, 03/30/21 15:01:00 EDT, Height, 120.5, kg, 03/30/21 15:01:00 EDT, Dosing Weight Start: 03-30-2021 See Instructions , Disp glucose test strips, #100, UAD daily to test blood sugar, # 100 EA, 3 Refill(s), [id number], Diabetes, 186, cm, 03/30/21 15:01:00 EDT, Height, 120.5, kg, 03/30/21 15:01:00 EDT, Dosing Weight Start: 03-30-2021 See Instructions , Dispense ultrafine lancets, #100, use 1 lancet daily to test blood sugar, # 100 EA, 3 Refill(s), [id number], Diabetes, 186, cm, 03/30/21 15:01:00 EDT, Height, 120.5, kg, 03/30/21 15:01:00 EDT, Dosing Weight Start: 03-30-2021 See Instructions , Disp glucose test strips, #100, UAD daily to test blood sugar, # 100 EA, 3 Refill(s), Pharmacy: [facility]/pharmacy #[id number], Diabetes, 186, cm, 03/30/21 15:01:00 EDT, Height, 120.5, kg, 03/30/21 15:01:00 EDT, Dosing Weight Start: 03-30-2021 See Instructions , Dispense ultrafine lancets, #100, use 1 lancet daily to test blood sugar, # 100 EA, 3 Refill(s), Pharmacy: [facility]/pharmacy #[id number], Diabetes, 186, cm, 03/30/21 15:01:00 EDT, Height, 120.5, kg, 03/30/21 15:01:00 EDT, Dosing Weight Start: 03-30-2021 See Instructions , Disp glucose test strips, #100, UAD daily to test blood sugar, # 100 EA, 3 Refill(s), [id number], Diabetes, 186, cm, 03/30/21 15:01:00 EDT, Height, 120.5, kg, 03/30/21 15:01:00 EDT, Dosing Weight Start: 03-30-2021 See Instructions , Dispense ultrafine lancets, #100, use 1 lancet daily to test blood sugar, # 100 EA, 3 Refill(s), [id number], Diabetes, 186, cm, 03/30/21 15:01:00 EDT, Height, 120.5, kg, 03/30/21 15:01:00 EDT, Dosing Weight Start: 03-30-2021 See Instructions , Disp glucose test strips, #100, UAD daily to test blood sugar, # 100 EA, 3 Refill(s), Pharmacy: [facility]/pharmacy #[id number], Diabetes, 186, cm, 03/30/21 15:01:00 EDT, Height, 120.5, kg, 03/30/21 15:01:00 EDT, Dosing Weight Start: 03-30-2021 See Instructions , Dispense ultrafine lancets, #100, use 1 lancet daily to test blood sugar, # 100 EA, 3 Refill(s), [id number], Diabetes, 186, cm, 03/30/21 15:01:00 EDT, Height, 120.5, kg, 03/30/21 15:01:00 EDT, Dosing Weight Start: 03-30-2021 See Instructions , Disp glucose test strips, #100, UAD daily to test blood sugar, # 100 EA, 3 Refill(s), [id number], Diabetes, 186, cm, 03/30/21 15:01:00 EDT, Height, 120.5, kg, 03/30/21 15:01:00 EDT, Dosing Weight Start: 03-30-2021 See Instructions , Dispense ultrafine lancets, #100, use 1 lancet daily to test blood sugar, # 100 EA, 3 Refill(s), [id number], Diabetes, 186, cm, 03/30/21 15:01:00 EDT, Height, 120.5, kg, 03/30/21 15:01:00 EDT, Dosing Weight Start: 03-30-2021 See Instructions , Disp glucose test strips, #100, UAD daily to test blood sugar, # 100 EA, 3 Refill(s), [id number], Diabetes, 186, cm, 03/30/21 15:01:00 EDT, Height, 120.5, kg, 03/30/21 15:01:00 EDT, Dosing Weight Start: 03-30-2021 See Instructions , Dispense ultrafine lancets, #100, use 1 lancet daily to test blood sugar, # 100 EA, 3 Refill(s), [id number], Diabetes, 186, cm, 03/30/21 15:01:00 EDT, Height, 120.5, kg, 03/30/21 15:01:00 EDT, Dosing Weight Start: 03-30-2021 See Instructions , Disp glucose test strips, #100, UAD daily to test blood sugar, # 100 EA, 3 Refill(s), [id number], Diabetes, 186, cm, 03/30/21 15:01:00 EDT, Height, 120.5, kg, 03/30/21 15:01:00 EDT, Dosing Weight Start: 03-30-2021 See Instructions , Dispense ultrafine lancets, #100, use 1 lancet daily to test blood sugar, # 100 EA, 3 Refill(s), Pharmacy: [facility]/pharmacy #[id number], Diabetes, 186, cm, 03/30/21 15:01:00 EDT, Height, 120.5, kg, 03/30/21 15:01:00 EDT, Dosing Weight Start: 03-30-2021 See Instructions , Disp glucose test strips, #100, UAD daily to test blood sugar, # 100 EA, 3 Refill(s), Pharmacy: [facility]/pharmacy #[id number], Diabetes, 186, cm, 03/30/21 15:01:00 EDT, Height, 120.5, kg, 03/30/21 15:01:00 EDT, Dosing Weight Start: 03-30-2021 See Instructions , Dispense ultrafine lancets, #100, use 1 lancet daily to test blood sugar, # 100 EA, 3 Refill(s), [id number], Diabetes, 186, cm, 03/30/21 15:01:00 EDT, Height, 120.5, kg, 03/30/21 15:01:00 EDT, Dosing Weight Start: 03-30-2021 See Instructions , Disp glucose test strips, #100, UAD daily to test blood sugar, # 100 EA, 3 Refill(s), [id number], Diabetes, 186, cm, 03/30/21 15:01:00 EDT, Height, 120.5, kg, 03/30/21 15:01:00 EDT, Dosing Weight Start: 03-30-2021 See Instructions , Dispense ultrafine lancets, #100, use 1 lancet daily to test blood sugar, # 100 EA, 3 Refill(s), Pharmacy: [facility]/pharmacy #[id number], Diabetes, 186, cm, 03/30/21 15:01:00 EDT, Height, 120.5, kg, 03/30/21 15:01:00 EDT, Dosing Weight Start: 03-30-2021 See Instructions , Disp glucose test strips, #100, UAD daily to test blood sugar, # 100 EA, 3 Refill(s), [id number], Diabetes, 186, cm, 03/30/21 15:01:00 EDT, Height, 120.5, kg, 03/30/21 15:01:00 EDT, Dosing Weight Start: 03-30-2021 See Instructions , Dispense ultrafine lancets, #100, use 1 lancet daily to test blood sugar, # 100 EA, 3 Refill(s), [id number], Diabetes, 186, cm, 03/30/21 15:01:00 EDT, Height, 120.5, kg, 03/30/21 15:01:00 EDT, Dosing Weight Start: 03-30-2021 Clinical Notes 09-07-2021 to 09-08-2021 Note Date & Type Note Facility 09-08-2021 Hospital Discharg e instructions Patient Education 09/08/2021 16:29:46 Near-Syncope, [id number] Near-Syncope Near-syncope is when you suddenly get [...] Follow these instructions at home: Medicines Take [id number]-[id number] and prescription medicines only as told by [...] 03/06/2009 Document Revised: 01/10/2020 Document Reviewed: 08/07/2019 [employer] Patient Education 2020 [employer] Follow Up Care 09/07/2021 09:58:14 With:You received Flu vaccine on 09/08/21. Address:Unknown When: Unknown With:HEAVENLY CHESTER DO Address: [address] [place] [address] [place] [address]- [phone] When:09/15/2021 09:30:00 Comments:Dr. Chester is not available. Your appointment is with Nery Casey NP. This is your post-hospital follow-up appointment. [facility] 09-07-2021 Evaluation + Plan note Extrac ava from: Title:History and Physical Author:JAXON ISAAC APRN-DELIVERY AND INSTALLATION SUBCONTRACTOR Date:09/07/21 1. Near syncope 2. Essential hypertension [...] Appointment Date:09/15/2021 09:30:00 AM Scheduled Provider:NERY CASEY [facility] Type[facility] Hospital Follow-Up Appointment Date:09/28/2021 11:30:00 AM Scheduled Provider:HEAVENLY CHESTER DO [facility] Type[facility] Evaluation + Plan note Future Appointments Appointment Date:09/28/2021 11:30:00 AM Scheduled Provider:HEAVENLY CHESTER DO Location:[facility] Appointment Type:PC OV [facility] Evaluation + Plan note Future Appointments Appointment Date:09/28/2021 11:30:00 AM Scheduled Provider:HEAVENLY CHESTER DO Location:[facility] Appointment Type:PC OV Diagnostic Tests Pending * G-6-PD Quant 09/03/21 [facility] Evaluation + Plan note Future Appointments Appointment Date:12/28/2021 10:30:00 AM Scheduled Provider:HEAVENLY CHESTER DO Location:[facility] Appointment Type:PC OV [facility] Evaluation + Plan note Future Appointments Appointment Date:02/08/2022 09:30:00 AM Scheduled Provider:HEAVENLY CHESTER DO Location:[facility] Appointment Type:PC OV Follow Up Appointment Date:04/01/2022 11:00:00 AM Scheduled Provider:HEAVENLY CHESTER DO Location:[facility] Appointment Type:PC OV Follow Up Future Scheduled Tests Laboratory* Complete Metabolic Panel 12/28/21 [facility] evaluation + Plan note Future Appointments Appointment Date:04/01/2022 11:00:00 AM Scheduled Provider:HEAVENLY CHESTER DO Location:[facility] Appointment Type:PC OV Follow Up Future Scheduled Tests Laboratory* Basic Metabolic Panel 02/20/22 * Microalbumin Level Urine 02/21/22 * Complete Metabolic Panel 12/28/21 [facility] Evaluation + Plan note Future Appointments Appointment Date:05/09/2022 03:45:00 PM Scheduled Provider: Location:[facility] Appointment Type:PC Nurse Protime Appointment Date:07/07/2022 03:45:00 PM Scheduled Provider:HEAVENLY CHESTER DO Location:[facility] Appointment Type:PC OV Follow Up Future Scheduled Tests Laboratory* Basic Metabolic Panel 02/20/22 * Microalbumin Level Urine 02/21/22 * Complete Metabolic Panel 12/28/21 [facility] Evaluation + Plan note Future Appointments Appointment Date:12/15/2022 01:00:00 PM Scheduled Provider:HEAVENLY CHESTER DO Location:[facility] Appointment Type:PC OV Diagnostic Tests Pending * TB Quantiferon, Incubated 07/07/22 Future Scheduled Tests Laboratory* Basic Metabolic Panel 02/20/22 * Microalbumin Level Urine 02/21/22 * Complete Metabolic Panel 12/28/21 [facility] Phormaluation + Plan note Future Appointments Appointment Date:12/15/2022 01:00:00 PM Scheduled Provider:HEAVENLY CHESTER DO Location:[facility] Appointment Type:PC OV Diagnostic Tests Pending * TB Quantiferon, Incubated 07/14/22 Future Scheduled Tests Laboratory* Basic Metabolic Panel 02/20/22 * Microalbumin Level Urine 02/21/22 * Complete Metabolic Panel 12/28/21 [facility] Phormaluation + Plan note Future Appointments Appointment Date:12/15/2022 01:00:00 PM Scheduled Provider:HEAVENLY CHESTER DO Location:[facility] Appointment Type:PC OV Future Scheduled Tests Laboratory* Potassium Level 08/02/22 * Basic Metabolic Panel 02/20/22 * Microalbumin Level Urine 02/21/22 * Complete Metabolic Panel 12/28/21 [facility] Phormaluation + Plan note Future Appointments Appointment Date:12/15/2022 01:00:00 PM Scheduled Provider:HEAVENLY CHESTER DO Location:[facility] Appointment Type:PC OV Future Scheduled Tests Laboratory* Basic Metabolic Panel 02/20/22 * Microalbumin Level Urine 02/21/22 * Complete Metabolic Panel 12/28/21 [facility] Phormaluation + Plan note Future Appointments Appointment Date:01/23/2023 02:15:00 PM Scheduled Provider: Location:[facility] Appointment Type:PC Nurse Protime Appointment Date:03/28/2023 02:30:00 PM Scheduled Provider:HEAVENLY CHESTER DO Location:[facility] Appointment Type:PC OV Future Scheduled Tests Laboratory* Potassium Level 12/22/22 * Basic Metabolic Panel 02/20/22 * Microalbumin Level Urine 02/21/22 [facility] Evaluation + Plan note Future Appointments Appointment Date:04/03/2023 02:30:00 PM Scheduled Provider:HEAVENLY CHESTER DO Location:[facility] Appointment Type:PC OV Future Scheduled Tests Laboratory* Potassium Level 12/22/22 [facility] Evaluation + Plan note Future Appointments Appointment Date:08/01/2023 08:30:00 AM Scheduled Provider:HEAVENLY CHESTER DO Location:[facility] Appointment Type:PC OV Future Scheduled Tests Laboratory* Potassium Level 12/22/22 [facility] Evaluation + Plan note Future Appointments Appointment Date:04/10/2024 04:00:00 PM Scheduled Provider:HEAVENLY CHESTER DO Location:[facility] Appointment Type:PC OV [facility] Evaluation + Plan note Future Appointments Appointment Date:07/24/2024 03:30:00 PM Scheduled Provider:HEAVENLY CHESTER DO Location:[facility] Appointment Type:PC OV Controlled Medication [facility] Hospital course Narrative No data available for this section [facility] Hospital Discharge instructions No data available for this section [facility] Progress note No data available for this section [facility] Summary Purpose Family History No Family History Records Found Advance Directives No Advanced Directives Records FoundNo Advanced Directives Records Found Additional Source Comments Care Team (unrecognized sect ion and content) Personnel Name: HEAVENLY CHESTER DO Address: [address] [place] [address] Personnel Name: HEAVENLY CHESTER DO Address: [address] [place] [address]- Personnel Name: HEAVNELY CHESTER DO Address: [address] [place] [address]- Care Team Personnel Name: HEAVENLY CHESTER DO Position: P4 Physician - Primary Care Member Role: Primary Care Physician Address: Address: [address] [place] [address]- Care Team Related Persons Name: SAIDA DAVIS [facility] Personnel Name: HEAVENLY CHESTER DO Position: P4 Physician - Primary Care Member Role: Primary Care Physician Address: Address: [address] [place] [address] Care Team Related Persons Name: SAIDA DAVIS Care Team Personnel Name: HEAVENLY CHESTER DO Position: P4 Physician - Primary Care Member Role: Primary Care Physician Address: Address: [address] [place] [address]- Care Team Related Persons Name: SAIDA DAVIS Care Team Personnel Name: HEAVENLY CHESTER DO Position: P4 Physician - Primary Care Member Role: Primary Care Physician Address: Address: [address] [place] [address]- Care Team Related Persons Name: SAIDA DAVIS Care Team Personnel Name: HEAVENLY CHESTER DO Position: P4 Physician - Primary Care Member Role: Primary Care Physician Address: Address: [address] [place] [address]- Care Team Related Persons Name: SAIDA DAVIS Care Team Personnel Name: HEAVENLY CHESTER DO Position: P4 Physician - Primary Care Member Role: Primary Care Physician Address: Address: [address] [place] [address]- Care Team Related Persons Name: SAIDA DAVIS Care Team (unrecognized sect ion and content) Care Team Personnel Name: HEAVENLY CHESTER DO Position: P4 Physician - Primary Care Med Service: Active Provider Member Role: Primary Care Physician Address: Address: [address] [place] [address]- Care Team Related Persons Name: SAIDA DAVIS Care Team Personnel Name: HEAVENLY CHESTER DO Position: P4 Physician - Primary Care Med Service: Active Provider Member Role: Primary Care Physician Address: Address: [address] [place] [address] Care Team Related Persons Name: SAIDA DAVIS Care Team Personnel Name: HEAVENLY CHESTER DO Position: P4 Physician - Primary Care Med Service: Active Provider Member Role: Primary Care Physician Address: Address: [address] [place] [address] Care Team Related Persons Name: SAIDA DAVIS Care Team Personnel Name: HEAVENLY CHESTER DO Position: P4 Physician - Primary Care Med Service: Active Provider Member Role: Primary Care Physician Address: Address: [address] [place] [address] Care Team Related Persons Name: SAIDA DAVIS Care Team Personnel Name: HEAVENLY CHESTER DO Position: P4 Physician - Primary Care Member Role: Primary Care Physician Address: Address: [address] [place] [address] Care Team Related Persons Name: SAIDA DAVIS (unrecognized sect ion and content) No Status Records FoundNo Status Records Found INFORMATION SOURCE (unrecogn ized section and content) DATE CREATED AUTHOR 01/26/2024 [facility] ([place]) DATE CREATED AUTHOR AUTHOR'S ORGANIZ ATION 08/01/2024 [facility] FOR RECORDS PERTAINING TO PATIENTS WHO ARE [...] BE BASED ON THE PRIMARY CLINICAL RECORDS. [employer] provides no warranty or guarantee of the accuracy or completeness of information in this document.
[2024-08-01] MEDS: Cefazolin 1 GM/50 ML BAG IV (19:49)
[2024-08-01] MEDS: Metoprolol Tartrate 25 MG Tablet PO (19:52)
[2024-08-01] MEDS: Hydroxychloroquine 200 MG Tablet PO (19:52)
[2024-08-01] MEDS: Acetaminophen 500 MG Tablet 1000 MG PO (19:52)
[2024-08-01] MEDS: Tamsulosin HCl 0.4 MG Capsule PO (19:52)
[2024-08-01] MEDS: metFORMIN (XR) 500 MG Tablet 2000 MG PO (19:53)
[2024-08-01] MEDS: 0.9% Saline Lock 10 ML Syringe IV (19:53)
[2024-08-01] MEDS: Pravastatin 40 MG Tablet PO (19:53)
[2024-08-01 21:03] LABS: Bedside Glucose 357 mg/dL (74-106)
[2024-08-02 01:53] VITALS: BP 119/72; PULSE 59; RESP 16; TEMP 37.1; O2SAT 96
[2024-08-02] MEDS: Cefazolin 1 GM/50 ML BAG IV (04:21)
[2024-08-02] MEDS: 0.9% Saline Lock 10 ML Syringe IV ×2 (04:22→08:36)
[2024-08-02] MEDS: Acetaminophen 500 MG Tablet 1000 MG PO ×2 (04:41→14:11)
[2024-08-02 04:50] VITALS: BP 117/63; PULSE 54; RESP 16; TEMP 36.6; O2SAT 92
[2024-08-02] MEDS: Insulin Lispro 100 UNIT/ML INSULN.PEN SC (06:01)
[2024-08-02 06:36] LABS: Creatinine, Serum 0.85 mg/dL (0.70-1.30); EST Glomerular Filtration Rate 94 mL/min (>60); Est Glom Filt Rate - Afr Amer 114 mL/min (>60); Estimated Creatinine Clearance 107.69 ml/min
[2024-08-02 06:39] LABS: Bedside Glucose 176 mg/dL (74-106)
[2024-08-02 07:14] LABS: International Normalized Ratio 1.2; Prothrombin Time (Protime)PT. 14.9 SECONDS (11.7-14.9)
[2024-08-02 08:23] VITALS: BP 117/71; PULSE 63; RESP 16; TEMP 36.6; O2SAT 93
[2024-08-02] MEDS: Enoxaparin 120 MG/0.8 ML Syringe SC (08:28)
[2024-08-02 08:29] VITALS: PULSE 63
[2024-08-02] MEDS: Hydroxychloroquine 200 MG Tablet PO (08:29)
[2024-08-02] MEDS: Metoprolol Tartrate 25 MG Tablet PO (08:29)
[2024-08-02] MEDS: predniSONE 5 MG Tablet PO (08:29)
[2024-08-02] MEDS: glipiZIDE 5 MG Tablet PO (08:29)
[2024-08-02] MEDS: oxyCODONE 5 MG Tablet 10 MG PO ×2 (08:35→12:56)
[2024-08-02] MEDS: Cefazolin 2 GM in Syringe IV (08:37)
[2024-08-02 09:33] VITALS: O2SAT 93
--- NOTE | 2024-08-02 10:05 | CASEMGMT ---
ELLY FAUSTIN notified by therapy Pt would like [facility]. ELLY FAUSTIN into pt room, pt sitting in chair. Pt son in room, pt agreeabel to discussing DC with family present. Pt would like to be set up with [facility], denies wanting list of local [facility] agencies. Pt states has FWW at home, son is working on getting pt a shower bench. Family denies additional needs at this time. Pt son will be here for a few days, lives in [place]. Pt states has family in the area able to assist him at home. ELLY FAUSTIN called [facility] for referral, will call back if able to accept.
[2024-08-02] MEDS: Baclofen 10 MG Tablet 5 MG PO (10:41)
[2024-08-02 12:07] LABS: Bedside Glucose 81 mg/dL (74-106)
--- NOTE | 2024-08-02 12:11 | PCM.PN.ORT ---
Subjective Subjective Patient is s/p right knee quadriceps tendon repair with Dr. Cooper 08/01/2024.. Patient resting comfortably in bed. Rates pain 3/ 10 at rest. With movement 3/10. States taking Tylenol and oxycodone as needed and ice help to relieve pain. Patient has been up with therapy. Walking with the assit of a walker. Weightbearing as tolerated T ROM in place at all x 0 to 10 degrees. Upon opening incision to the quadriceps there was concern for potential septic arthritis. Infectious diseases consulted awaiting final recommendations. Afebrile, no chest pain, shortness of breath, negative calf pain/ erythema, and no other signs of DVT. Objective Data Objective Data Vital Signs: Vital Signs Temp Pulse Resp BP Pulse Ox O2 Del Method O2 Flow Rate 98 F 63 16 117/71 93 Room Air 2 08/02/24 08:23 08/02/24 08:29 08/02/24 08:23 08/02/24 08:23 08/02/24 09:33 08/02/24 08:30 08/02/24 01:53 Oxygen Flow Rate (L/min) 2 Oxygen Delivery Method Room Air Weight: 119 kg Body Mass Index (BMI) 33.7 Intake & Output: Intake and Output for Last 24 Hours 07/31/24 08/01/24 08/02/24 23:59 23:59 23:59 Intake Total 170 / 170 70 / 70 Output Total 1275 / 1275 Balance 170 / 170 -1205 / -1205 Lab / Micro Data 08/02/24 05:32 Labs: Laboratory Results - last 24 hr 08/01/24 12:10: POC PT 13.0, INR 1.1 08/01/24 12:33: POC Glucose 109 H 08/01/24 14:27: Fluid Source Cancelled, Fluid Color Cancelled, Fluid Appearance Cancelled, Fluid WBC Cancelled, Fluid RBC Cancelled, Fluid Tot Cell Count Cancelled, Fld Polynuclear WBCs # Cancelled, Fld Polynuclear WBCs % Cancelled, Fluid Mononuclear WBCs Cancelled, Fld Mononuclear WBCs % Cancelled, Fluid Neutrophils Cancelled, Fluid Lymphocytes Cancelled, Fluid Monocytes Cancelled, Fluid Plasma Cells Cancelled, Fluid Macrophages Cancelled, Fld Mesothelial Cells Cancelled, Fluid Other Cells Cancelled, Fl Pathologist Comment Cancelled, Fluid Comment 2 Cancelled, Synovial Source RIGHT KNEE, Synovial Color Red, Synovial Appearance Sl Cl, Synovial Viscosity Sl. Viscous, Synovial WBC 62.8500 H, Synovial RBC 0.037 H, Synovial Tot Cell Ct 62.9700 H, Synov Polynuclear WBCs 62.649, Synov Mononuclear WBCs 2.007, Synovial Neutrophils 93 H, Synovial Lymphocytes 3, Synovial Monocytes 4, Synovial Polynuclear % 96.9, Synovial Mononuclear % 3.1, Synovial Path Comment May follow 08/01/24 20:01: POC Glucose 357 H 08/02/24 05:32: PT 14.9, INR 1.2, Creatinine 0.85, Estim Creat Clear Calc 107.69, Est GFR (MDRD) Af Amer 114, Est GFR (MDRD) Non-Af 94 08/02/24 05:56: POC Glucose 176 H 08/02/24 11:49: POC Glucose 81 Micro: Microbiology 08/01/24 14:20 Abs - Knee Gram Stain - Final 08/01/24 14:20 Abs - Knee Wound Culture - Preliminary No growth-Final to follow 08/01/24 14:20 Abs - Aerobic & Anaerobic Swabs Gram Stain - Final 08/01/24 14:20 Abs - Aerobic & Anaerobic Swabs Wound Culture - Preliminary No growth-Final to follow Physical Exam Narrative Patient resting comfortably in bed No signs of acute distress Satting well on room air Limb is warm to touch, Sensation intact throughout entire lower extremity, including saphenous, sural, superficial and deep peroneal, and tibial distribution. DP/PT pulses bounding. T ROM in place locked in extension at all times Dressing clear dry intact Calf nontender to palpation, no erythema, no edema. Negative Homans Synovial fluid right knee Total cell count of synovial fluid 62.9700 which is elevated Synovial white blood cell 0.037 elevated Synovial white blood cells 62.8500 elevated Neutrophils 93 elevated Gram stain of wound is no growth to date Assessment & Plan Assessment/Plan (1) Quadriceps tendon rupture: PLAN: Plan Postop day 1 status post right quadriceps tendon repair with Dr. Cooper 1. Will continue PT today. Weightbearing as tolerated T ROM in place at all times locked in extension. Only to be removed for hygiene purposes at which patient is to not flex the knee at all. 2. plan for discharge home today. cleared by medicine with briding to coumadin recs and ABX per ID. 3. Patient will follow up for post op appointment in 3 weeks in our office 4. Patient has outpatient PT appointment to be scheduled when leaving the hospital 5. WBC 12.4 acute reactive leukocytosis 6. H/H 15.6/46.8: no post operavtive anemia 7. DVT prophylaxis : Patient resumed his Coumadin today postop day 1. Hospitalist consulted for bridging to Coumadin with Lovenox due to history of factor V and history of PE. Currently bridging with enoxaparin twice daily. Upon discharge she will follow-up with primary care for INR checks to ensure therapeutic. 8. Pain control: patient instructed to take tylenol 500mg 2 tablets TID. and oxycodone 1-2 tablets every 4-6 hours only as needed for pain control. 9. ok to remove post op dressing. post op day 7 10. In regards to concern for potential septic arthritis. Dr. Hudson will d/c ancef, and begin likely duel oral antibiotic therapy. patient will follow up cultures at his post op appointment with [facility]. If he is doing well, and not showing s/s of further septic arthritis at follow up , no need for further follow up with ID. will continue to follow cultures.
--- NOTE | 2024-08-02 12:13 | CASEMGMT ---
Addendum entered by Aida Abbott 08/02/24 13:22: ELLY FAUSTIN into pt room, notified pt [facility] accepted and SOC will be Monday08/05/24. Pt denied questions or concerns at this time. Original Note: [facility] called ELLY FAUSTIN to notify pt is accepted. If DC today, SOC will be 08/05/24.
--- NOTE | 2024-08-02 12:43 | DCINST_ITS ---
Discharge Instructions Diet Discharge Diet: No restrictions Activity Discharge Activity: May Not Drive and May Shower Weight Bearing Status: Weight bearing as tolerated Lifting Restrictions: TROM locked in extension at all times. Additional Activity Instructions:: TROM locked in extension at all times. ok to remove TROM to bathe, however do not flex the knee Dressing / Incision Call your doctor if your incision/area has: Continuous Slow Oozing, Sudden Increased Bleeding, Increased Pain/ Swelling, Increased Redness, Foul Smelling Discharge and Swelling at the incision site Call your doctor if you observe: Fever of 101 or Higher, Inability to have a bowel movement, Using more than 1 pad per hour, Shortness of breath, Dizziness, Swelling in the ankles, Chest pain and Calf discomfort Remove Dressing in: 1 week Cleanse incision/area with: Soap & Water and Keep Dressing Clean & Dry Follow Up Care When: in 3 weeks with [facility] Test Results: Test results from this visit will be discussed in further detail at your follow- up appointment, if applicable. Discharge Plan Admission Admit Date/Time: 08/01/24 15:21 Attending Provider: Blake Cooper Primary Care Provider: Baljinder Chester Consulting Providers: Surya Huntley; Kane Ceja; Baljinder Hudson Instructions Additional Instructions / Restrictions: Continue enoxaparin (Lovenox) twice daily until your INR is 2 or greater Follow up with PCP regarding INR check Discharge Orders/Prescriptions Prescriptions: New enoxaparin 100 mg/mL Syringe 120 mg subcut Q12@0600,1800 Qty: 10 0RF Continued fluticasone propionate 50 mcg/actuation spray,suspension 2 spray INTRANASAL DAILY glipizide 5 mg tablet 5 mg PO BID hydroxychloroquine 200 mg tablet 200 mg PO BID metformin 500 mg tablet extended release 24 hr 2,000 mg PO QHS pravastatin 40 mg tablet 40 mg PO QHS prednisone 5 mg tablet 5 mg PO DAILY tamsulosin 0.4 mg capsule 0.4 mg PO QHS metoprolol tartrate 25 mg tablet 25 mg PO BID warfarin 5 mg tablet 5 mg PO DAILY baclofen 5 mg tablet 5 mg PO DAILY PRN (Reason: pain) No Action oxycodone-acetaminophen [Percocet] 5-325 mg tablet 1 tab PO Q6H PRN (Reason: pain) 3 Days Qty: 12 0RF tramadol 50 mg tablet 50 - 100 mg PO Q6H PRN PRN (Reason: pain) Referrals / Follow Up: Baljinder Chester DO [Primary Care Provider] - Disposition Disposition (needs filled in before D/C Order can be placed): Home, Self Care
[2024-08-02 12:56] VITALS: BP 128/72; PULSE 69; RESP 14; TEMP 36.6; O2SAT 93
--- NOTE | 2024-08-02 13:12 | PCM.CONS.GEN ---
Assessment & Plan Assessment/Plan (1) Quadriceps tendon rupture: PLAN: Taken to OR 08/01/[address] Cooper for repair. Possible synovitis/septic arthritis. Cxs neg so far. On cefazolin. Will write for 3 weeks po doxy/duricef while cxs are pending. ID followup prn depending cxs and outpt progress. D/w primary team, thank you HPI Consult Data Date of Consult: 08/02/24 HPI Narrative Reason for Consultation: septic arthritis HPI Narrative: BALJINDER DAVIS, is a 73 M who had a fall 07/08/24 with immediate pop and pain in R knee. No cuts or scrapes at that time. Went to ED, placed in immobilizer. Referred to ortho, then taken to OR 08/01/[address] Cooper for quadriceps repair; some synovitis seen, fluid sent. Now on cefazolin, feeling ok. No fever, chills, redness, or drainage prior to OR. Full ROS performed and neg except as noted above. [facility] Medical History Quadriceps tendon rupture VTE (venous thromboembolism) Alcohol use History of steroid therapy Walker as ambulation aid Back pain Syncope Dietary restriction CPAP (continuous positive airway pressure) dependence Smoker Leg cramps Arthritis Diabetes Factor 5 Leiden mutation, heterozygous High cholesterol HTN (hypertension) DVT (deep venous thrombosis) Home Medications ?Medication ?Instructions ?Recorded ?Last Taken ?Type oxycodone-acetaminophen 5 mg-325 1 tab PO Q6H PRN pain 3 days #12 07/08/24 07/31/24 Rx mg tablet (Percocet) tabs fluticasone propionate 50 2 spray intranasal DAILY 07/24/24 07/31/24 History mcg/actuation nasal spray,suspension glipizide 5 mg tablet 5 mg PO BID 07/24/24 07/31/24 History hydroxychloroquine 200 mg tablet 200 mg PO BID 07/24/24 08/01/24 History metformin 500 mg tablet,extended 2,000 mg PO QHS 07/24/24 07/31/24 History release 24 hr metoprolol tartrate 25 mg tablet 25 mg PO BID 07/24/24 07/31/24 History pravastatin 40 mg tablet 40 mg PO QHS 07/24/24 08/01/24 History prednisone 5 mg tablet 5 mg PO DAILY 07/24/24 07/31/24 History tamsulosin 0.4 mg capsule 0.4 mg PO QHS 07/24/24 07/31/24 History tramadol 50 mg tablet 50 - 100 mg PO Q6H PRN PRN pain 07/24/24 07/31/24 History warfarin 5 mg tablet 5 mg PO DAILY 07/24/24 07/24/24 History baclofen 5 mg tablet 5 mg PO DAILY PRN pain 08/01/24 Unknown History enoxaparin 100 mg/mL subcutaneous 120 mg (1.2 mL) subcut 08/01/24 Unknown Rx syringe Q12@0600,1800 #10 mL cefadroxil 500 mg capsule 1,000 mg (2 x 500 mg) PO BID #80 08/02/24 Unknown Rx caps doxycycline hyclate 100 mg capsule 100 mg PO BID #40 caps 08/02/24 Unknown Rx Allergy/AdvReac Type Severity Reaction Status Date / Time No Known Allergies Allergy Verified 08/01/24 12:42 Surgical History Hx of colonoscopy Hx of appendectomy Hx of total knee arthroplasty Social History Smoking Status: Current every day smoker tobacco type: cigars Physical Exam Const alert, oriented x3 and no apparent distress General Appearance: cooperative HEENT normocephalic and head/scalp atraumatic Eyes PERRL and EOMs intact bilaterally Neck supple and No nodes Resp normal air movement and clear to auscultation bilaterally Cardio regular rate and regular rhythm GI soft to palpation, non-tender and non-distended Extremity General Extremity: Negative for edema Skin no rashes or lesions noted Skin Narrative: RLE wrapped Neuro CN's II-XII intact bilaterally Lab / Micro Data Attestation: I reviewed the patient's lab results. 08/02/24 05:32 Labs: Laboratory Results - last 24 hr 08/01/24 12:33: POC Glucose 109 H 08/01/24 14:27: Fluid Source Cancelled, Fluid Color Cancelled, Fluid Appearance Cancelled, Fluid WBC Cancelled, Fluid RBC Cancelled, Fluid Tot Cell Count Cancelled, Fld Polynuclear WBCs # Cancelled, Fld Polynuclear WBCs % Cancelled, Fluid Mononuclear WBCs Cancelled, Fld Mononuclear WBCs % Cancelled, Fluid Neutrophils Cancelled, Fluid Lymphocytes Cancelled, Fluid Monocytes Cancelled, Fluid Plasma Cells Cancelled, Fluid Macrophages Cancelled, Fld Mesothelial Cells Cancelled, Fluid Other Cells Cancelled, Fl Pathologist Comment Cancelled, Fluid Comment 2 Cancelled, Synovial Source RIGHT KNEE, Synovial Color Red, Synovial Appearance Sl Cl, Synovial Viscosity Sl. Viscous, Synovial WBC 62.8500 H, Synovial RBC 0.037 H, Synovial Tot Cell Ct 62.9700 H, Synov Polynuclear WBCs 62.649, Synov Mononuclear WBCs 2.007, Synovial Neutrophils 93 H, Synovial Lymphocytes 3, Synovial Monocytes 4, Synovial Polynuclear % 96.9, Synovial Mononuclear % 3.1, Synovial Path Comment May follow 08/01/24 20:01: POC Glucose 357 H 08/02/24 05:32: PT 14.9, INR 1.2, Creatinine 0.85, Estim Creat Clear Calc 107.69, Est GFR (MDRD) Af Amer 114, Est GFR (MDRD) Non-Af 94 08/02/24 05:56: POC Glucose 176 H 08/02/24 11:49: POC Glucose 81 Micro: Microbiology 08/01/24 14:20 Abs - Knee Gram Stain - Final 08/01/24 14:20 Abs - Knee Wound Culture - Preliminary No growth-Final to follow 08/01/24 14:20 Abs - Aerobic & Anaerobic Swabs Gram Stain - Final 08/01/24 14:20 Abs - Aerobic & Anaerobic Swabs Wound Culture - Preliminary No growth-Final to follow
[2024-08-02 14:35] LABS: Pathologist Comment Reviewed
== END 2024-08-02 14:17 | disposition home health service (06) ==
LOC: SDC 16:49 → MS3 16:49
PROVIDERS: Admitting Provider Student in an Organized Health Care Education/Training Program; PCP Preventive Medicine Occupational Medicine; Referring Provider Student in an Organized Health Care Education/Training Program; Visit Provider Student in an Organized Health Care Education/Training Program
PROC: (CPT 27385; principal; 2024-08-01 13:35)
DX: S76.111A Strain of right quadriceps muscle, fascia and tendon, initial encounter (principal); E11.9 Type 2 diabetes mellitus without complications; Z79.84 Long term (current) use of oral hypoglycemic drugs; Z79.01 Long term (current) use of anticoagulants; E78.00 Pure hypercholesterolemia, unspecified; I10 Essential (primary) hypertension; M25.461 Effusion, right knee; Z79.899 Other long term (current) drug therapy; Z79.52 Long term (current) use of systemic steroids; Y93.89 Activity, other specified; W19.XXXA Unspecified fall, initial encounter; Z86.718 Personal history of other venous thrombosis and embolism; Z86.711 Personal history of pulmonary embolism; D68.51 Activated protein C resistance; F17.210 Nicotine dependence, cigarettes, uncomplicated
CPT/HCPCS: 27385; 01250; 36415; 36416; 82565; 82962; 85610; 87070; 87075; 87205; 89050; 89051; 94668; 96365; 96366; 96372; 96375; 97162; 97166; 99221; J7120; A4216; G0378; J2405